=== PATIENT | male | born 1950 | race Caucasian/White ===

== ENCOUNTER 2020-06-09 09:06 | Outpatient (REF) | payer MEDICARE, SELFPAY ==
[2020-06-09 09:34] LABS: MANUAL DIFF FLAG NO
[2020-06-09 09:44] LABS: Basophils Absolute Auto 0.1 X10*3/uL (0.0-0.2); Basophils Percent Auto 0.9 % (0-2); Eosinophils Absolute Auto 0.2 X10*3/uL (0.0-0.4); Eosinophils Percent Auto 2.9 % (0-4); Hematocrit 42.3 % (42-52); Hemoglobin 14.7 g/dl (14.0-18.0); Imm Gran Abs Auto 0.05 X10*3/uL (0.00-0.03); Imm Gran Pct Auto 0.9 % (0.0-0.4); Lymphocytes Absolute Auto 2.1 X10*3/uL (1.2-4.9); Lymphocytes Percent Auto 36.8 % (20-40); Mean Corpuscular HGB Conc 34.8 g/dl (31.0-36.0); Mean Corpuscular Hemoglobin 31.5 pg (27.0-33.0); Mean Corpuscular Volume 90.8 fL (80-98); Mean Platelet Volume 9.9 fL (9.4-12.4); Monocytes Absolute Auto 0.4 X10*3/uL (0.1-1.2); Monocytes Percent Auto 6.9 % (2-11); Neutrophils Percent Auto 51.6 % (45-73); Platelet Count 249 X10*3/uL (160-400); Red Blood Count 4.66 X10*6/uL (4.60-5.80); Red Cell Distribution Width 12.8 % (11.0-16.0); White Blood Count 5.8 X10*3/uL (4.8-10.8)
[2020-06-09 09:56] LABS: Estimated Average Glucose 100 mg/dL; Hemoglobin A1c % 5.1 %
[2020-06-09 10:13] LABS: Alanine Aminotransferase 39 U/L (0-40); Albumin Level 4.2 g/dL (3.5-5.0); Alkaline Phosphatase 57 U/L (39-117); Anion Gap 11 (12-20); Aspartate Amino Transferase 25 U/L (5-37); Bilirubin Total 1.1 mg/dL (0.0-1.0); Blood Urea Nitrogen 24 mg/dL (9-16); Carbon Dioxide 29 mmol/L (22-29); Chloride 108 mmol/L (96-108); Cholesterol 172 mg/dL; Estimated Glomerular Filt Rate > 60; Glucose Random 113 mg/dL (60-115); HDL Cholesterol 58 mg/dL; LDL Cholesterol Calculated 95 mg/dl; Potassium 4.8 mmol/L (3.3-5.1); Sodium 143 mmol/L (135-145); Total Protein 6.4 g/dL (6.5-8.0); Triglycerides 98 mg/dL
[2020-06-09 10:22] LABS: Free T4 (Free Thyroxine) 0.84 ng/dL (0.71-1.85); Thyroid Stimulating Hormone 2.81 uIU/mL (0.32-4.0)
[2020-06-09 10:24] LABS: Uric Acid 5.9 mg/dL (3.4-7.0)
[2020-06-09 11:10] LABS: Folate 10.7 ng/mL (> or = 4.0); Vitamin B12 312 pg/mL (200-900)
[2020-06-10 04:28] LABS: SARS COV2 IgG Negative (Negative)
== END 2020-06-09 09:07 | disposition home or self-care (01) ==
LOC: HO.LAB 09:06
PROVIDERS: PCP Internal Medicine; Visit Provider Internal Medicine
DX: M51.36 Other intervertebral disc degeneration, lumbar region (principal); I10 Essential (primary) hypertension; M1A.9XX0 Chronic gout, unspecified, without tophus (tophi); E78.00 Pure hypercholesterolemia, unspecified; R73.02 Impaired glucose tolerance (oral)
CPT/HCPCS: 36415; 80053; 80061; 82607; 82746; 83036; 84439; 84443; 84550; 85025; 86769

== ENCOUNTER 2020-06-25 13:29 | Outpatient (REF) | payer MEDICARE, SELFPAY | END 2020-06-25 13:30 | disposition home or self-care (01) | LOC: HO.LAB 13:29 | PROVIDERS: Visit Provider Hospitalist | DX: Z13.89 Encounter for screening for other disorder (principal) ==

== ENCOUNTER 2020-06-25 18:21 | Outpatient (REF) | payer MEDICARE, SELFPAY | END 2020-06-25 18:22 | disposition home or self-care (01) | LOC: HO.LNP 18:21 | PROVIDERS: Visit Provider Hospitalist | DX: R51.9 Headache, unspecified (principal); R50.9 Fever, unspecified; Z20.822 Contact with and (suspected) exposure to COVID-19 | CPT/HCPCS: U0003; U0005 ==

== ENCOUNTER → 2020-10-10 10:12 | Outpatient (BNVA) | payer MEDICARE, SELFPAY | PROVIDERS: Visit Provider Orthopaedic Surgery | DX: M17.0 Bilateral primary osteoarthritis of knee (principal) | CPT/HCPCS: 20610; 99212; J1040 ==

== ENCOUNTER 2020-11-18 07:55 | Outpatient (REF) | payer MEDICARE, SELFPAY ==
[2020-11-18 08:23] LABS: MANUAL DIFF FLAG NO
[2020-11-18 08:31] LABS: Basophils Percent Auto 0.6 % (0-2); Eosinophils Absolute Auto 0.2 X10*3/uL (0.0-0.4); Eosinophils Percent Auto 3.1 % (0-4); Hematocrit 43.8 % (42-52); Hemoglobin 14.7 g/dl (14.0-18.0); Imm Gran Abs Auto 0.04 X10*3/uL (0.00-0.03); Imm Gran Pct Auto 0.6 % (0.0-0.4); Lymphocytes Absolute Auto 2.4 X10*3/uL (1.2-4.9); Lymphocytes Percent Auto 36.8 % (20-40); Mean Corpuscular HGB Conc 33.6 g/dl (31.0-36.0); Mean Corpuscular Hemoglobin 30.8 pg (27.0-33.0); Mean Corpuscular Volume 91.8 fL (80-98); Mean Platelet Volume 10.2 fL (9.4-12.4); Monocytes Absolute Auto 0.3 X10*3/uL (0.1-1.2); Monocytes Percent Auto 4.6 % (2-11); Neutrophils Absolute Auto 3.5 X10*3/uL (2.0-8.3); Neutrophils Percent Auto 54.3 % (45-73); Platelet Count 230 X10*3/uL (160-400); Red Blood Count 4.77 X10*6/uL (4.60-5.80); Red Cell Distribution Width 13.8 % (11.0-16.0); White Blood Count 6.5 X10*3/uL (4.8-10.8)
[2020-11-18 08:51] LABS: Alanine Aminotransferase 31 U/L (0-40); Albumin Level 4.5 g/dL (3.5-5.0); Alkaline Phosphatase 50 U/L (39-117); Anion Gap 11 (12-20); Aspartate Amino Transferase 26 U/L (5-37); Bilirubin Total 1.4 mg/dL (0.0-1.0); Blood Urea Nitrogen 20 mg/dL (9-16); Calcium 9.6 mg/dL (8.4-10.2); Carbon Dioxide 28 mmol/L (22-29); Chloride 110 mmol/L (96-108); Estimated Glomerular Filt Rate > 60; Glucose Random 88 mg/dL (60-115); Sodium 144 mmol/L (135-145); Total Protein 6.7 g/dL (6.5-8.0); Uric Acid 5.4 mg/dL (3.4-7.0)
[2020-11-18 09:12] LABS: Prostate Specific Antigen Scr 4.41 ng/mL (<0.05-4.0)
[2020-11-18 09:13] LABS: Estimated Average Glucose 97 mg/dL
== END 2020-11-18 07:56 | disposition home or self-care (01) ==
LOC: HO.LAB 07:55
PROVIDERS: PCP Internal Medicine; Visit Provider Internal Medicine
DX: Z12.5 Encounter for screening for malignant neoplasm of prostate (principal); R73.02 Impaired glucose tolerance (oral); M1A.9XX0 Chronic gout, unspecified, without tophus (tophi)
CPT/HCPCS: 36415; 80053; 83036; 84153; 84443; 84550; 85025

== ENCOUNTER 2020-12-24 13:33 | Outpatient (REF) | payer MEDICARE, SELFPAY ==
[2020-12-24 14:57] LABS: PSA,Total (Free>4and<10) 4.34 ng/mL (0.00-4.00)
[2020-12-25 11:52] LABS: Free Prostate Spec Ag 0.9 ng/mL; Percent Free Prostate Spec Ag 23 % (calc) (>25)
== END 2020-12-24 13:34 | disposition home or self-care (01) ==
LOC: HO.LAB 13:33
PROVIDERS: PCP Internal Medicine; Visit Provider Internal Medicine
DX: Z12.5 Encounter for screening for malignant neoplasm of prostate (principal); R97.20 Elevated prostate specific antigen [PSA]
CPT/HCPCS: 36415; 84153; 84154

== ENCOUNTER 2021-09-04 17:12 | Outpatient (REF) | payer MEDICARE, SELFPAY ==
[2021-09-04 17:38] LABS: Appearance Urine CLEAR; Color Urine YELLOW; Glucose Urine UA NEG (NEG); Leukocyte Esterase Urine NEG (NEG); Nitrite Urine NEG (NEG); UACC Culture Trigger NO; Urine Blood 3+ (NEG); Urine Ketones NEG (NEG); Urine Protein 2+ MG/DL (NEG-TRACE)
[2021-09-04 17:48] LABS: Bacteria Urine TRACE /LPF; WBC Urine 0 /HPF (0-4)
== END 2021-09-04 17:13 | disposition home or self-care (01) ==
LOC: HO.LAB 17:12
PROVIDERS: PCP Internal Medicine; Visit Provider Internal Medicine
DX: R30.0 Dysuria (principal)
CPT/HCPCS: 81001

== ENCOUNTER 2021-09-14 15:10 | Outpatient (REF) | payer MEDICARE, SELFPAY ==
--- NOTE | ~2021-09-14 | US_ITS ---
EXAMINATION: US RETROPERITONEAL LIMITED (RENAL ONLY) CLINICAL INFORMATION: Hematuria. COMPARISON: Abdominal ultrasound 04/27/2018 TECHNIQUE: Ultrasound of both kidneys was performed. FINDINGS: RIGHT KIDNEY: 10.9 x 6.8 x 6.0 cm (SAG x AP x TRV). The kidney is normal in size, contour, and echogenicity. Renal cortical thickness is normal. No calculi or focal parenchymal lesions. No hydronephrosis. Multiple renal cysts are present, both parapelvic as well as cortical with the largest measuring 5.1 x 3.9 x 4.1 cm. No solid renal masses are seen. There is a single punctate calcification measuring 3 mm without shadowing at the periphery of the largest cyst. LEFT KIDNEY: 11.4 x 7.1 x 6.6 cm (SAG x AP x TRV). The kidney is normal in size, contour, and echogenicity. Renal cortical thickness is normal. No calculi or focal parenchymal lesions. No hydronephrosis. Multiple predominately parapelvic cysts are present the largest measuring 4.2 x 2.6 x 2.7 cm. No solid renal masses are seen. US/US renal BI IMPRESSION: Bilateral renal cysts. No solid masses are seen. A small 3 mm nonobstructing calculus appears to be present on the right. No other cause for the patient's hematuria is not seen with certainty. CT urography would generally be the exam of choice for hematuria and may be helpful for further evaluation..
== END 2021-09-14 15:11 | disposition home or self-care (01) ==
LOC: HO.US 15:10
PROVIDERS: Visit Provider Internal Medicine
DX: R31.9 Hematuria, unspecified (principal)
CPT/HCPCS: 76775

== ENCOUNTER 2021-11-16 07:29 | Outpatient (REF) | payer MEDICARE, SELFPAY ==
[2021-11-16 07:47] LABS: MANUAL DIFF FLAG NO
[2021-11-16 08:00] LABS: Basophils Percent Auto 0.6 % (0-2); Eosinophils Absolute Auto 0.2 X10*3/uL (0.0-0.4); Eosinophils Percent Auto 2.5 % (0-4); Hematocrit 42.8 % (42.0-52.0); Hemoglobin 14.3 g/dl (14.0-18.0); Imm Gran Abs Auto 0.07 X10*3/uL (0.00-0.03); Lymphocytes Absolute Auto 2.2 X10*3/uL (1.2-4.9); Lymphocytes Percent Auto 32.2 % (20-40); Mean Corpuscular HGB Conc 33.4 g/dl (31.0-36.0); Mean Corpuscular Hemoglobin 31.6 pg (27.0-33.0); Mean Corpuscular Volume 94.5 fL (80.0-98.0); Mean Platelet Volume 9.7 fL (9.4-12.4); Monocytes Absolute Auto 0.4 X10*3/uL (0.1-1.2); Monocytes Percent Auto 5.7 % (2-11); Platelet Count 221 X10*3/uL (160-400); Red Blood Count 4.53 X10*6/uL (4.60-5.80); Red Cell Distribution Width 13.8 % (11.0-16.0); White Blood Count 6.9 X10*3/uL (4.8-10.8)
[2021-11-16 08:08] LABS: Estimated Average Glucose 91 mg/dL; Hemoglobin A1c % 4.8 %
[2021-11-16 08:30] LABS: Alanine Aminotransferase 18 U/L (0-40); Albumin Level 4.4 g/dL (3.5-5.0); Alkaline Phosphatase 47 U/L (39-117); Anion Gap 14 (12-20); Aspartate Amino Transferase 14 U/L (5-37); Bilirubin Total 1.5 mg/dL (0.0-1.0); Blood Urea Nitrogen 23 mg/dL (9-16); Calcium 9.3 mg/dL (8.4-10.2); Carbon Dioxide 27 mmol/L (22-29); Chloride 108 mmol/L (96-108); Cholesterol 190 mg/dL; Estimated Glomerular Filt Rate > 60; Glucose Random 94 mg/dL (60-115); HDL Cholesterol 70 mg/dL; LDL Cholesterol Calculated 98 mg/dl; Potassium 5.2 mmol/L (3.3-5.1); Sodium 144 mmol/L (135-145); Total Protein 6.6 g/dL (6.5-8.0); Triglycerides 110 mg/dL; Uric Acid 4.7 mg/dL (3.4-7.0)
[2021-11-16 08:54] LABS: Free T4 (Free Thyroxine) 0.91 ng/dL (0.71-1.85); PSA,Total (Free>4and<10) 2.29 ng/mL (0.00-4.00)
[2021-11-16 09:04] LABS: Folate 9.1 ng/mL (> or = 4.0); Vitamin B12 747 pg/mL (200-900)
[2021-11-16 09:12] LABS: Appearance Urine HAZY; Color Urine STRAW; Glucose Urine UA NEG (NEG); Leukocyte Esterase Urine NEG (NEG); Nitrite Urine POS (NEG); PH 5.5 (5.0-8.0); UACC Culture Trigger YES; Urine Blood NEG (NEG); Urine Ketones NEG (NEG); Urine Protein NEG (NEG-TRACE)
[2021-11-16 09:41] LABS: Bacteria Urine 3+ /LPF; RBC Urine 0 /HPF (0)
== END 2021-11-16 07:30 | disposition home or self-care (01) ==
LOC: HO.LAB 07:29
PROVIDERS: PCP Internal Medicine; Visit Provider Internal Medicine
DX: J43.1 Panlobular emphysema (principal); R30.0 Dysuria; I10 Essential (primary) hypertension; M1A.9XX0 Chronic gout, unspecified, without tophus (tophi); N40.1 Benign prostatic hyperplasia with lower urinary tract symptoms; R35.0 Frequency of micturition; E78.00 Pure hypercholesterolemia, unspecified; R73.02 Impaired glucose tolerance (oral); Z12.5 Encounter for screening for malignant neoplasm of prostate
CPT/HCPCS: 36415; 80053; 80061; 81001; 81003; 82607; 82746; 83036; 84153; 84439; 84443; 84550; 85025; 87086; 87088; 87186

== ENCOUNTER 2022-01-05 12:09 | Outpatient (REF) | payer MEDICARE, SELFPAY ==
--- NOTE | ~2022-01-05 | XR_ITS ---
EXAMINATION: LUMBAR SPINE AND SACRUM/COCCYX. CLINICAL INFORMATION: Back pain COMPARISON: None TECHNIQUE: Lumbar spine 3 views. Sacrum and coccyx 3 views. FINDINGS: Lumbar spine: There is normal lumbar lordosis. The vertebral heights, alignment and disc heights are normal. There is moderate ventral spondylosis. No visible acute fracture, dislocation or lytic process seen. There is bilateral L4-L5 and L5-S1 facet joint arthropathy. The paravertebral soft tissues are normal. XR/XR sacrum coccyx min 2V IMPRESSION: Moderate ventral spondylosis. No visible acute fracture, dislocation or subluxation seen. There is bilateral L5-S1, L4-L5 facet joint arthropathy.
--- NOTE | ~2022-01-05 | XR_ITS ---
EXAMINATION: LUMBAR SPINE AND SACRUM/COCCYX. CLINICAL INFORMATION: Back pain COMPARISON: None TECHNIQUE: Lumbar spine 3 views. Sacrum and coccyx 3 views. FINDINGS: Lumbar spine: There is normal lumbar lordosis. The vertebral heights, alignment and disc heights are normal. There is moderate ventral spondylosis. No visible acute fracture, dislocation or lytic process seen. There is bilateral L4-L5 and L5-S1 facet joint arthropathy. The paravertebral soft tissues are normal. XR/XR lumbar spine 2-3V IMPRESSION: Moderate ventral spondylosis. No visible acute fracture, dislocation or subluxation seen. There is bilateral L5-S1, L4-L5 facet joint arthropathy.
== END 2022-01-05 12:10 | disposition home or self-care (01) ==
LOC: HO.XRAY 12:09
PROVIDERS: PCP Internal Medicine; Visit Provider Internal Medicine
DX: M51.36 Other intervertebral disc degeneration, lumbar region (principal)
CPT/HCPCS: 72100; 72220

== ENCOUNTER 2022-07-30 06:52 | Outpatient (REF) | payer MEDICARE, SELFPAY ==
[2022-07-30 08:35] LABS: Estimated Average Glucose 97 mg/dL
[2022-07-30 09:22] LABS: Thyroid Stimulating Hormone 3.83 uIU/mL (0.32-4.0)
[2022-07-30 10:11] LABS: Uric Acid 4.9 mg/dL (3.4-7.0)
== END 2022-07-30 06:53 | disposition home or self-care (01) ==
LOC: HO.LAB 06:52
PROVIDERS: PCP Internal Medicine; Visit Provider Internal Medicine
DX: M1A.9XX0 Chronic gout, unspecified, without tophus (tophi) (principal); I10 Essential (primary) hypertension; R73.02 Impaired glucose tolerance (oral)
CPT/HCPCS: 36415; 83036; 84443; 84550

== ENCOUNTER → 2022-09-28 10:46 | Outpatient (BNVA) | payer MEDICARE, SELFPAY | PROVIDERS: Visit Provider Physician Assistant | DX: Z01.818 Encounter for other preprocedural examination (principal); J43.1 Panlobular emphysema | CPT/HCPCS: 99202 ==

== ENCOUNTER → 2022-10-07 12:52 | Outpatient (REF) | payer MEDICARE, SELFPAY | LOC: HO.SL 12:52 | PROVIDERS: PCP Nurse Practitioner Family; Visit Provider Internal Medicine | DX: G47.10 Hypersomnia, unspecified (principal) | CPT/HCPCS: 95806 ==

== ENCOUNTER → 2022-10-07 13:14 | Outpatient (BNV) | payer MEDICARE, SELFPAY | PROVIDERS: PCP Nurse Practitioner Family; Visit Provider Internal Medicine | DX: G47.33 Obstructive sleep apnea (adult) (pediatric) (principal) | CPT/HCPCS: 95806 ==

== ENCOUNTER 2022-12-07 13:16 | Outpatient (AMB) | payer MEDICARE, SELFPAY ==
[2022-12-07 13:20] VITALS: BP 132/76; PULSE 56; O2SAT 92; BMI 36.1
--- NOTE | 2022-12-07 13:20 | A.OFFPC_ITS ---
Vital Signs 12/07/22 13:20 12/07/22 13:45 Height 5 ft 11 in Weight 259 lb BMI 36.1 BP 132/76 140/70 H Blood Pressure Location Lt brachial Lt brachial Position Sitting Sitting Pulse 56 Pulse Source Pulse Oximeter Pulse Oximetry (%) 92 Oxygen Delivery Method Room Air Intake Visit Reasons: Follow up Allergies bacitracin Allergy (Intermediate, Verified 12/07/22 13:20) rash amlodipine Adverse Reaction (Intermediate, Uncoded 12/07/22 13:47) leg swelling Medication List - Last Reconciled 12/07/22 by Zaid Barrett MD albuterol sulfate 90 mcg/actuation (ProAir HFA) 2 puffs inhalation Q4-6H PRN albuterol sulfate 2.5 mg (3 mL) inhalation Q4-6H PRN 30 days allopurinol 300 mg PO DAILY benazepril 40 mg PO DAILY bisacodyl (Dulcolax (bisacodyl)) 20 mg (4 x 5 mg) PO ONCE 1 day cholecalciferol (vitamin D3) 50 mcg PO DAILY finasteride 5 mg PO DAILY metoprolol succinate ER 25 mg PO DAILY polyethylene glycol 3350 (Miralax) 238 grams PO ONCE 1 day tamsulosin 0.4 mg PO DAILY tramadol 50 mg PO TID PRN Tobacco use date assessed: 05/25/22 Fall risk assessment: No Falls in past year Last assessed Fall Risk: 12/07/22 Dental Screening Dental Screen Date: 12/07/22 Did you have a dental visit in the last 12 months?: Yes Did you have a dental problem in the last 6 months where you did not have access to dental care?: No Was dental information given to patient?: Patient has dentist HPI Follow up HPI Details 72-year-old obese male with impaired glucose tolerance gout COPD hypertension BPH lumbar degenerative disc disease with bilateral knee osteoarthritis coming in for follow-up. Last seen in November 2021. Colonoscopy is due this year review of the notes. Patient has sleep study in October 2022 showing moderately severe sleep apnea patient has been advised in lab sleep study. Patient has also met with the tree specialist in September 2022 and planned colonoscopy. Patient has also seen the nurse practitioner for annual well visit. Patient also follows up with urology April 2022 elevated PSA and BPH. 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 Low back pain problem having moderate ventral spondylosis having L5-S1 L4-L5 joint are 3. BP high here- was taken off amlodipine 10 mg . BP high at home. would like to add med for BP PFSH Medical History (Updated 12/07/22 @ 13:38 by Zaid Barrett MD) BPH (benign prostatic hyperplasia) Carpal tunnel syndrome Cerumen impaction Cervical radiculopathy COPD (chronic obstructive pulmonary disease) COVID-19 virus infection COVID-19 virus infection Fatty liver Fever and chills Gout Hypersomnia Hypertension Impacted cerumen of left ear Impaired glucose tolerance Lumbar degenerative disc disease Obesity (BMI 30-39.9) Osteoarthritis Otitis media Peripheral vascular disease Preoperative clearance Thrombophlebitis leg superficial Vitamin D deficiency Surgical History History of carpal tunnel release History of colonoscopy History of elbow surgery History of removal of cyst History of right knee surgery History of varicose vein stripping Family History (Updated 12/07/22 @ 13:21 by Alexandra Irene CMA) Father Lung cancer Brain cancer Mother No problems noted. Paternal Uncle Brain cancer Lung cancer Social History Housing: House Alcohol intake: current Alcohol intake frequency: a few times a week Alcohol type: beer Patient Tobacco Use Status: Former Tobacco user Tobacco use type: Cigarette e-Cigarette/Vaping Use: Never Used Second Hand Smoke Exposure: No service: No Current occupational status: retired Cognitive needs: No Hearing needs: No Vision needs: No Questionnaire PHQ-9 Over the last 2 weeks, how often have you been bothered by any of the following problems? 1. Little interest or pleasure in doing things: not at all 2. Feeling down, depressed, or hopeless: not at all 3. Trouble falling or staying asleep, or sleeping too much: not at all 4. Feeling tired or having little energy: several days 5. Poor appetite or overeating: not at all 6. Feeling bad about yourself - or that you are a failure or have let yourself or your family down: not at all 7. Trouble concentrating on things, such as reading the newspaper or watching television: not at all 8. Moving or speaking so slowly that other people could have noticed. Or the opp osite - being so fidgety or restless that you have been moving around a lot more than usual: not at all 9. Thoughts that you would be better off or of hurting yourself in some way: not at all Total score: 1 Depression Screening Interpretation: Negative [id number] - PHQ-9 Billing: Yes Source: Developed by Drs. Abiel Perez, Ceci Foss, Leonel Ram and colleagues, with an educational niurka from [employer]. Thrive Questionnaire Date Thrive assessed: 05/25/22 AUDIT C Alcohol Use Questionnaire (AUDIT-C) 1. How often do you have a drink containing alcohol?: 2-3 times a week 2. How many drinks containing alcohol do you have on a typical day when you are drinking?: 1 or 2 3. How often do you have six or more drinks on one occasion?: Never Total Score: 3 Score Reviewed/Action Taken: No ZACHARY-7 AMB Questionnaire ZACHARY-7 Date ZACHARY - 7 assessed: 05/25/22 Source: Developed by Drs. Abiel Perez, Ceci Foss, Leonel Ram and colleagues, with an educational niurka from [employer]. Physical exam (Primary Care) Vital Signs: Last Vital Signs Pulse 56 12/07/22 13:20 BP 132/76 12/07/22 13:20 Pulse Ox 92 12/07/22 13:20 Oxygen Delivery Method Room Air 12/07/22 13:20 BMI result Body Mass Index 36.1 Tobacco/Smoking Status: Tobacco use Status Tobacco use date assessed 05/25/22 12/07/22 13:26 Patient Tobacco Use Status Former Tobacco user 12/07/22 13:26 Tobacco use type Cigarette 12/07/22 13:26 e-Cigarette/Vaping Use Never Used 12/07/22 13:26 PHQ-9: PHQ-9 Score PHQ-9: Total score 1 12/07/22 13:26 Depression Screening Interpretation: Negative Thrive Assessment: Date of Thrive Assessment Date Thrive assessed 05/25/22 12/07/22 13:26 Const General: alert; No acute distress Eyes Conjunctivae: conjunctivae normal Resp Auscultation: clear to auscultation bilaterally Cardio Rate: regular rate Rhythm: regular rhythm GI Inspection: Yes normal to inspection Extrem General: Yes normal to inspection and No edema Assessment and Plan Assessment & Plan (1) Severe obstructive sleep apnea: Code(s): G47.33 - Obstructive sleep apnea (adult) (pediatric) Plan: Patient was advised to get an in-lab sleep study for this severe obstructive sleep apnea. Awaiting for schedule (2) Screening for colon cancer: Code(s): Z12.11 - Encounter for screening for malignant neoplasm of colon Plan: Awaiting Gastroenterology schedule (3) Lumbar spinal stenosis: Comment: Dr. Borjas August 2020 L3 for laminotomy, decompression facetomy partial L3-L4 Code(s): M48.061 - Spinal stenosis, lumbar region without neurogenic claudication Plan: Patient is on tramadol (4) BPH (benign prostatic hyperplasia): Code(s): N40.0 - Benign prostatic hyperplasia without lower urinary tract symptoms Qualifiers: Lower urinary tract symptom presence: symptoms present Lower urinary tract symptom detail: urinary frequency Qualified Code(s): N40.1 - Benign prostatic hyperplasia with lower urinary tract symptoms; R35.0 - Frequency of micturition Plan: Continue to follow-up with Urology (5) Hypertension: Code(s): I10 - Essential (primary) hypertension Qualifiers: Hypertension type: essential hypertension Qualified Code(s): I10 - Essential (primary) hypertension Plan: Continue with blood pressure medication. Decrease salt intake and exercise patient on metoprolol 25 mg once a day (6) Obesity (BMI 30-39.9): Code(s): E66.9 - Obesity, unspecified Plan: Diet and exercise (7) COPD (chronic obstructive pulmonary disease): Code(s): J44.9 - Chronic obstructive pulmonary disease, unspecified Qualifiers: COPD type: emphysema Emphysema type: panlobular Qualified Code(s): J43.1 - Panlobular emphysema Plan: Continue with inhaler as needed (8) Impaired glucose tolerance: Code(s): R73.02 - Impaired glucose tolerance (oral) Plan: Decrease the amount of carbohydrate intake, pasta, bread, rice and potatoes are all sugar and that is aside from all the sweet stuff, remember that fruits are good but they are Sweet also. (9) Gout: Comment: Tophi right finger 2005 Code(s): M10.9 - Gout, unspecified Qualifiers: Gout site: unspecified site Gout etiology: unspecified cause Chronicity: chronic Presence of tophus: without tophus Qualified Code(s): M1A.9XX0 - Chronic gout, unspecified, without tophus (tophi) Plan: Increase oral fluids low purine diet Orders: Orders Vitamin B12 and Folate Today I10 - Essential (primary) hypertension Comprehensive Met. Panel Today I10 - Essential (primary) hypertension Lipid Panel Today E78.00 - Pure hypercholesterolemia, unspecified, I10 - Essential (primary) hypertension Free T4 (Free Thyroxine) Today I10 - Essential (primary) hypertension Thyroid Stimulating Hormone Today I10 - Essential (primary) hypertension Complete Blood Count Auto Diff Today I10 - Essential (primary) hypertension Medications: New hydrochlorothiazide 12.5 mg PO DAILY 90 tabs 2RF I10 - Essential (primary) hypertension Coding Level of Care Code Est Pt Level 4 (66367) Diagnoses Severe obstructive sleep apnea G47.33 Screening for colon cancer Z12.11 Lumbar spinal stenosis M48.061 BPH (benign prostatic hyperplasia) N40.1; R35.0 Lower urinary tract symptom presence: symptoms present Lower urinary tract symptom detail: urinary frequency Hypertension I10 Hypertension type: essential hypertension Obesity (BMI 30-39.9) E66.9 COPD (chronic obstructive pulmonary disease) J43.1 COPD type: emphysema Emphysema type: panlobular Impaired glucose tolerance R73.02 Gout M1A.9XX0 Gout site: unspecified site Gout etiology: unspecified cause Chronicity: chronic Presence of tophus: without tophus
[2022-12-07 13:45] VITALS: BP 140/70
== END 2022-12-07 13:56 | disposition home or self-care (01) ==
PROVIDERS: PCP Nurse Practitioner Family; Visit Provider Internal Medicine
DX: I10 Essential (primary) hypertension (principal); J43.1 Panlobular emphysema; G47.33 Obstructive sleep apnea (adult) (pediatric); M48.061 Spinal stenosis, lumbar region without neurogenic claudication; N40.1 Benign prostatic hyperplasia with lower urinary tract symptoms; R35.0 Frequency of micturition; E66.9 Obesity, unspecified; R73.02 Impaired glucose tolerance (oral); M1A.9XX0 Chronic gout, unspecified, without tophus (tophi)
CPT/HCPCS: 99214

== ENCOUNTER 2023-01-19 09:37 | Day surgery (SDC) | payer MEDICARE, SELFPAY ==
--- NOTE | 2023-01-18 09:09 | HO.ANESPROP2 ---
Documented by User: Edna Gerardo NP 01/18/23 09:11 HPI - Anesthesia Eval Consult details Narrative: 72yo M for Colonoscopy PMFSH Active Problems Active Problems: All Active Problems (Updated 12/07/22 @ 13:38 by Zaid Barrett MD) Severe obstructive sleep apnea (Acute) Screening for colon cancer (Acute) Right renal stone (Acute) Hematuria (Acute) Adult general medical exam (Acute) Trigger finger (Acute) PSA elevation (Acute) Erectile dysfunction (Acute) Injury of tympanic membrane of left ear (Acute) Primary osteoarthritis of knees, bilateral (Acute) Hand pain, right (Acute) Knee pain, bilateral (Acute) Lumbar spinal stenosis (Acute) Lumbar degenerative disc disease (Acute) BPH (benign prostatic hyperplasia) (Acute) Hypertension (Acute) Obesity (BMI 30-39.9) (Acute) COPD (chronic obstructive pulmonary disease) (Acute) Gout (Acute) Impaired glucose tolerance (Acute) Past Medical History Medical History Hypersomnia COVID-19 virus infection Otitis media Impacted cerumen of left ear Cerumen impaction Preoperative clearance COVID-19 virus infection Fever and chills Cervical radiculopathy Thrombophlebitis leg superficial Lumbar degenerative disc disease Fatty liver Osteoarthritis Carpal tunnel syndrome BPH (benign prostatic hyperplasia) Vitamin D deficiency Hypertension Obesity (BMI 30-39.9) COPD (chronic obstructive pulmonary disease) Gout Impaired glucose tolerance Peripheral vascular disease Family History Family History Father Lung cancer Brain cancer Mother No problems noted. Paternal Uncle Brain cancer Lung cancer Surgical History Surgical History History of back surgery History of back surgery History of colonoscopy History of varicose vein stripping History of right knee surgery History of elbow surgery History of removal of cyst History of carpal tunnel release Social History Social History Housing: House Alcohol intake: current Alcohol intake frequency: 0-2 drinks per day Alcohol type: beer Patient Tobacco Use Status: Former Tobacco user Tobacco use type: Cigarette e-Cigarette/Vaping Use: Never Used Second Hand Smoke Exposure: No Are you DNR?: No Advance Directives: No Advance Directives Information Provided: Yes Recently lost weight without trying: No Nutrition Risks: No Nutritional Risk service: No Current occupational status: retired Cognitive needs: No Hearing needs: No Vision needs: No Meds Allergies Allergy/AdvReac Type Severity Reaction Status Date / Time bacitracin Allergy Intermediate rash Verified 12/07/22 13:20 amlodipine AdvReac Intermediate leg Uncoded 12/07/22 13:47 swelling Home Medications Medication Instructions Recorded Confirmed Last Taken Type albuterol sulfate 90 mcg/actuation 2 puff inhalation Q4-6H PRN 06/03/20 12/07/22 Unknown History aerosol inhaler (ProAir HFA) cholecalciferol (vitamin D3) 50 50 mcg PO DAILY 06/04/21 12/07/22 Unknown History mcg (2,000 unit) capsule finasteride 5 mg tablet 5 mg PO DAILY 09/28/22 12/07/22 Unknown History Exam Exam Date and Time: January 18, 2023908 Assessment and Plan Assessment Anesthesia Assessment: Chart Reviewed Documented by User: Philomena Linn MD 01/19/23 12:11 PMFSH Past Medical History Medical History Hypersomnia COVID-19 virus infection Otitis media Impacted cerumen of left ear Cerumen impaction Preoperative clearance COVID-19 virus infection Fever and chills Cervical radiculopathy Thrombophlebitis leg superficial Lumbar degenerative disc disease Fatty liver Osteoarthritis Carpal tunnel syndrome BPH (benign prostatic hyperplasia) Vitamin D deficiency Hypertension Obesity (BMI 30-39.9) COPD (chronic obstructive pulmonary disease) Gout Impaired glucose tolerance Peripheral vascular disease Family History Family History Father Lung cancer Brain cancer Mother No problems noted. Paternal Uncle Brain cancer Lung cancer Family history of problems with anesthesia: No Surgical History Surgical History History of back surgery History of back surgery History of colonoscopy History of varicose vein stripping History of right knee surgery History of elbow surgery History of removal of cyst History of carpal tunnel release History of Problems with Anesthesia: No Social History Social History Housing: House Alcohol intake: current Alcohol intake frequency: 0-2 drinks per day Alcohol type: beer Patient Tobacco Use Status: Former Tobacco user Tobacco use type: Cigarette e-Cigarette/Vaping Use: Never Used Second Hand Smoke Exposure: No Are you DNR?: No Advance Directives: No Advance Directives Information Provided: Yes Recently lost weight without trying: No Nutrition Risks: No Nutritional Risk service: No Current occupational status: retired Cognitive needs: No Hearing needs: No Vision needs: No Meds Allergies Allergy/AdvReac Type Severity Reaction Status Date / Time bacitracin Allergy Intermediate rash Verified 12/07/22 13:20 amlodipine AdvReac Intermediate leg Uncoded 12/07/22 13:47 swelling Home Medications Medication Instructions Recorded Confirmed Last Taken Type albuterol sulfate 90 mcg/actuation 2 puff inhalation Q4-6H PRN 06/03/20 12/07/22 Unknown History aerosol inhaler (ProAir HFA) cholecalciferol (vitamin D3) 50 50 mcg PO DAILY 06/04/21 12/07/22 Unknown History mcg (2,000 unit) capsule finasteride 5 mg tablet 5 mg PO DAILY 09/28/22 12/07/22 Unknown History Exam Airway Mallampati Class: II TM Dist: >3cm Neck ROM: Full Heart: rrr Lungs: cta Assessment and Plan Assessment Anesthesia Assessment: Anesthesia Plan Discussed Final Anesthetic Review Family History of Problems with Anesthesia: No History of Problems with Anesthesia: No NPO: Yes ASA Class: III Final Preanesthetic Review: No Changes in Pt Med Stat, Meds/Allgs Chart Reviewed, Consent Obtained/Reviewed and Anes Risks/Benef Reviewed Patient Risk: Intermediate Procedure Risk: Low Anesthetic Plan Anesthetic Plan: MAC: Disposition: Standard PACU
[2023-01-19 10:15] VITALS: BMI 36.1
[2023-01-19 10:45] VITALS: BP 168/84; PULSE 85; RESP 20; TEMP 36.6; O2SAT 97
[2023-01-19] MEDS: Lactated Ringers 1,000 ML 100 ML IVCONT (11:14)
--- NOTE | 2023-01-19 11:19 | MHC.SHP ---
Pre-Procedural Eval Section A Date of Service: 01/19/23 Section B Chief Complaint: Encounter for screening for malignant neoplasm Relevant Family History (Specify if Yes): No Relevant Social History: None Present Medications: see Short Stay Collaborative assessment Medical History: Significant History (Hypersomnia COVID-19 virus infection Otitis media Impacted cerumen of left ear Cerumen impaction Preoperative clearance COVID-19 virus infection Fever and chills Cervical radiculopathy Thrombophlebitis leg superficial Lumbar degenerative disc disease Fatty liver Osteoarthritis Carpal tunnel syndrome) History of Previous Operations: Relevant previous surgery/procedure and date(s) (History of colonoscopy History of varicose vein stripping History of right knee surgery History of elbow surgery History of removal of cyst History of carpal tunnel release) Allergies: Allergies Allergy/AdvReac Type Severity Reaction Status Date / Time bacitracin Allergy Intermediate rash Verified 12/07/22 13:20 amlodipine AdvReac Intermediate leg Uncoded 12/07/22 13:47 swelling Review of Systems Sugical H&P ROS: Negative: Constitution, Cardiovascular, Respiratory, Neurological, Psychiatric, Hem-Onc, Allergic/Immunologic, Gastrointestinal, Genitourinary, Musculoskeletal, Integumentary, Endocrine and Eyes/Ears/Nose/Throat Exam Surgical H&P Exam: Normal: HEENT, Normal: Heart, Normal: Lungs, Normal: Extremities, Normal: Abdomen, Normal: Skin and Normal: Neurological Plan Diagnosis/Plan: Unchanged I have reviewed the history and physical and performed a pertinent physical examination on my patient. No changes have occurred unless specified. Time Spent With Patient Time: Total time managing care of this patient today ____ minutes.
--- NOTE | 2023-01-19 12:38 | P.OP_ITS ---
Operative Note Operative Note Date of Service: 01/19/23 Narrative: Operative Information Procedure Description: Colonoscopy Indication: screening Anesthesia: MAC COLONOSCOPY Instrument: Olympus variable stiffness ADULT scope 190L Colonoscopy Monitoring: Vital signs and clinical assessment, continuous EKG monitoring, Pulse oximetry, Carbon Dioxide monitoring and blood pressure monitoring were done throughout the procedure. Colon withdrawal time was 11 minutes. Procedure: The patient was placed in the left lateral decubitis position and pre-procedure medications were administered. After a digital rectal examination of the ano-rectum, the video colonoscope was inserted into the rectum and advanced through the colon to the cecum/TI. The colonoscope was slowly withdrawn in a retrograde panoramic fashion and the colon mucosa was carefully examined including a retroflexed view of the rectum. Findings and interventions are described below. Procedure Difficulty: moderate Findings: Terminal Ileum-not intubated Cecum:normal Ascending Colon: 5-7 mm sessile polyp removed with cold snare, not retrieved , scattered tics noted Transverse Colon -normal Descending Colon:normal Sigmoid Colon: moderate severe diverticulosis Rectum: Retroflexion with small internal hemorrhoids, grade I Anorectum - normal Colon preparation: [place] Bowel Preparation Scale Right colon; Transverse colon: 2 Left colon; 2 (0 = Unprepared colon segment with mucosa not seen due to solid stool that cannot be cleared. 1 = Portion of mucosa of the colon segment seen, but other areas of the colon segment not well seen due to staining, residual stool and/or opaque liquid. 2 = Minor amount of residual staining, small fragments of stool and/or opaque liquid, but mucosa of colon segment seen well. 3 = Entire mucosa of colon segment seen well with no residual staining, small fragments of stool or opaque liquid) Impression and Post Procedure Diagnosis: polyp internal hemorrhoids diverticular disease Plan: High fiber diet leaflet Avoid straining at stool, epsom salts and sitz bath, anusol supps or cream Repeat Colonoscopy in 5-7 years due to adenomatous polyp by Kudo pit markings or earlier if clinically indicated Above findings were reviewed with the patient and relevant handouts were provided if indicated.
[2023-01-19 12:48] VITALS: BP 149/80; PULSE 72; RESP 12; TEMP 36.7; O2SAT 98
[2023-01-19 13:07] VITALS: BP 165/92; PULSE 74; RESP 18; TEMP 36.2; O2SAT 97
--- NOTE | 2023-01-19 13:07 | HO.POSTANES ---
Post Anesthesia Evaluation Post Anesthesia Evaluation Date of Service: 01/19/23 Vital Signs: Vital Signs Temp Pulse Resp BP Pulse Ox O2 Del Method O2 Flow Rate 01/19/23 12:48 98.0 F 72 12 149/80 H 98 Nasal Cannula 2 01/19/23 10:45 97.9 F 85 20 168/84 H 97 Room Air Anesthesia: Monitored Mental Status: Awake Pain Control: Satisfactory Nausea/Vomiting: None Hydration: Adequate Anesthesia-Related Issues: No Anes. Related Issues
== END 2023-01-19 13:46 | disposition home or self-care (01) ==
PROVIDERS: PCP Internal Medicine; Visit Provider Internal Medicine Gastroenterology
PROC: 0DJD8ZZ Inspection of Lower Intestinal Tract, Via Natural or Artificial Opening Endoscopic (ICD-10-PCS; CPT 45378; principal; 2023-01-19 12:00)
DX: Z12.11 Encounter for screening for malignant neoplasm of colon (principal); K63.5 Polyp of colon; K57.30 Diverticulosis of large intestine without perforation or abscess without bleeding; K64.0 First degree hemorrhoids; R60.0 Localized edema; J43.1 Panlobular emphysema; I10 Essential (primary) hypertension; K76.0 Fatty (change of) liver, not elsewhere classified; N40.0 Benign prostatic hyperplasia without lower urinary tract symptoms; Z79.899 Other long term (current) drug therapy; Z87.891 Personal history of nicotine dependence
CPT/HCPCS: 45385; J2250

== ENCOUNTER → 2023-01-19 09:37 | Outpatient (BNV) | payer MEDICARE, SELFPAY | PROVIDERS: PCP Internal Medicine; Visit Provider Internal Medicine Gastroenterology | DX: Z12.11 Encounter for screening for malignant neoplasm of colon (principal); D12.2 Benign neoplasm of ascending colon; K57.90 Diverticulosis of intestine, part unspecified, without perforation or abscess without bleeding; K64.0 First degree hemorrhoids | CPT/HCPCS: 45385 ==

== ENCOUNTER → 2023-01-26 20:30 | Outpatient (REF) | payer MEDICARE, SELFPAY | LOC: HO.SL 20:30 | PROVIDERS: PCP Internal Medicine; Visit Provider Internal Medicine | DX: G47.33 Obstructive sleep apnea (adult) (pediatric) (principal) | CPT/HCPCS: 95811 ==

== ENCOUNTER → 2023-01-26 21:59 | Outpatient (BNV) | payer MEDICARE, SELFPAY | PROVIDERS: PCP Internal Medicine; Visit Provider Internal Medicine | DX: G47.33 Obstructive sleep apnea (adult) (pediatric) (principal) | CPT/HCPCS: 95811 ==

== ENCOUNTER 2023-02-01 10:34 | Outpatient (AMB) | payer MEDICARE, SELFPAY ==
--- NOTE | 2023-02-01 10:35 | A.OFFVIS_ITS ---
Intake Vital Signs 02/01/23 10:40 Height 5 ft 11 in BP 140/78 H Blood Pressure Location Lt brachial Position Sitting Pulse 57 Intake Visit Reasons: S/p colon Guillen Intake Note: Patient follow up for Colonoscopy results Patient denies any GI issues. Sampler Radioactive Waste Required: No Accompanied by: Self / Same As Patient Allergies bacitracin Allergy (Intermediate, Verified 02/01/23 10:36) rash amlodipine Adverse Reaction (Intermediate, Uncoded 12/07/22 13:47) leg swelling Medication List - Last Reconciled 02/01/23 by Marcia Lerner PA-C albuterol sulfate 90 mcg/actuation (ProAir HFA) 2 puffs inhalation Q4-6H PRN albuterol sulfate 2.5 mg (3 mL) inhalation Q4-6H PRN 30 days allopurinol 300 mg PO DAILY benazepril 40 mg PO DAILY cholecalciferol (vitamin D3) 50 mcg PO DAILY finasteride 5 mg PO DAILY hydrochlorothiazide 25 mg PO DAILY metoprolol succinate ER 25 mg PO DAILY tamsulosin 0.4 mg PO DAILY tramadol 50 mg PO TID PRN HPI HPI Comments History of Present Illness Details A 72-year-old Gent personal history of colon polyps follows up after recent colonoscopy with polypectomy. He does say he has hemorrhoid that is been a bit irritated he does have occasional constipation-he has made dietary modifications to increase fiber to his diet however not always successful Patient tolerated procedure well Reviewed procedure report, pathology as well as recommendations No nausea, vomiting, abdominal pain, hematemesis, hematochezia fever chills PFSH Medical History (Updated 02/01/23 @ 11:01 by Marcia Lerner PA-C) Hypersomnia COVID-19 virus infection Otitis media Impacted cerumen of left ear Cerumen impaction Preoperative clearance COVID-19 virus infection Fever and chills Cervical radiculopathy Thrombophlebitis leg superficial Lumbar degenerative disc disease Fatty liver Osteoarthritis Carpal tunnel syndrome BPH (benign prostatic hyperplasia) Vitamin D deficiency Hypertension Obesity (BMI 30-39.9) COPD (chronic obstructive pulmonary disease) Gout Impaired glucose tolerance Peripheral vascular disease Surgical History History of back surgery History of back surgery History of colonoscopy History of varicose vein stripping History of right knee surgery History of elbow surgery History of removal of cyst History of carpal tunnel release Family History Father Lung cancer Brain cancer Mother No problems noted. Paternal Uncle Brain cancer Lung cancer Social History Housing: House Alcohol intake: current Alcohol intake frequency: 0-2 drinks per day Alcohol t ype: beer Patient Tobacco Use Status: Former Tobacco user Tobacco use type: Cigarette e-Cigarette/Vaping Use: Never Used Second Hand Smoke Exposure: No service: No Current occupational status: retired Cognitive needs: No Hearing needs: No Vision needs: No Physical Exam Vital Signs: Last Vital Signs Pulse 57 02/01/23 10:40 BP 140/78 H 02/01/23 10:40 Results Reviewed Results Reviewed: Impression and Post Procedure Diagnosis: polyp internal hemorrhoids diverticular disease Plan: High fiber diet leaflet Avoid straining at stool, epsom salts and sitz bath, anusol supps or cream Repeat Colonoscopy in 5-7 years due to adenomatous polyp by Kudo pit markings or earlier if clinically indicated Assessment & Plan Assessment & Plan (1) History of colon polyps: Comment: hx adenoma- polyp not retrieved Code(s): Z86.010 - Personal history of colonic polyps (2) Diverticulosis of colon: Comment: Sigmoid Colon: moderate severe diverticulosis Code(s): K57.30 - Diverticulosis of large intestine without perforation or abscess without bleeding Plan: Maintain high-fiber diet ER protocol review (3) Hemorrhoids: Code(s): K64.9 - Unspecified hemorrhoids Plan: Consistent bowel regimen Maintain high-fiber diet-fiber supplement Avoid straining Rectal cream Declined surgical consult Medications: New calcium polycarbophil (Fiber Laxative (calcium polycarbophil)) 1,250 mg (2 x 625 mg) PO DAILY 30 days 60 tabs 3RF hydrocortisone 2.5% (Proctozone-HC) apply MD BID prn 1 appl MD BID PRN 30 grams 3RF hemorrhoids docusate sodium (Colace) 200 mg (2 x 100 mg) PO BEDTIME 60 caps 5RF polyethylene glycol 3350 (Miralax) 17 grams PO DAILY 510 grams 6RF Patient Instructions: hx adenoma- polyp not retrieved Repeat asymptomatic colonoscopy 5 years Consistent bowel regimen Repeat maintain high-fiber diet, fiber supplement Diverticulosis/diverticulitis ER protocol reviewed Avoid straining with hemorrhoids Declines surgical consult Coding Level of Care Code Est Pt Level 3 (57928) Diagnoses History of colon polyps Z86.010 Diverticulosis of colon K57.30 Hemorrhoids K64.9 Time Spent (min) 20
[2023-02-01 10:40] VITALS: BP 140/78; PULSE 57
== END 2023-02-01 11:37 | disposition home or self-care (01) ==
PROVIDERS: PCP Nurse Practitioner Family; Visit Provider Physician Assistant
DX: Z86.010 Personal history of colon polyps (principal); K57.30 Diverticulosis of large intestine without perforation or abscess without bleeding; K64.9 Unspecified hemorrhoids; Z71.2 Person consulting for explanation of examination or test findings
CPT/HCPCS: 99213

== ENCOUNTER → 2023-02-01 10:34 | Outpatient (BNVA) | payer MEDICARE, SELFPAY | PROVIDERS: PCP Nurse Practitioner Family; Visit Provider Physician Assistant | DX: K57.30 Diverticulosis of large intestine without perforation or abscess without bleeding (principal); K64.9 Unspecified hemorrhoids; Z86.010 Personal history of colon polyps | CPT/HCPCS: 99212 ==

== ENCOUNTER 2023-03-10 09:08 | Outpatient (REF) | payer MEDICARE, SELFPAY ==
[2023-03-10 09:42] LABS: MANUAL DIFF FLAG NO
[2023-03-10 10:02] LABS: Basophils Absolute Auto 0.1 X10*3/uL (0.0-0.2); Basophils Percent Auto 0.8 % (0-2); Eosinophils Absolute Auto 0.3 X10*3/uL (0.0-0.4); Eosinophils Percent Auto 3.1 % (0-4); Hematocrit 42.8 % (42.0-52.0); Hemoglobin 14.4 g/dl (14.0-18.0); Imm Gran Abs Auto 0.11 X10*3/uL (0.00-0.03); Imm Gran Pct Auto 1.4 % (0.0-0.4); Lymphocytes Absolute Auto 2.7 X10*3/uL (1.2-4.9); Lymphocytes Percent Auto 33.5 % (20-40); Mean Corpuscular HGB Conc 33.6 g/dl (31.0-36.0); Mean Corpuscular Hemoglobin 30.6 pg (27.0-33.0); Mean Corpuscular Volume 91.1 fL (80.0-98.0); Mean Platelet Volume 9.9 fL (9.4-12.4); Monocytes Absolute Auto 0.5 X10*3/uL (0.1-1.2); Monocytes Percent Auto 5.9 % (2-11); Neutrophils Absolute Auto 4.4 x10*3/uL (2.0-8.3); Neutrophils Percent Auto 55.3 % (45-73); Platelet Count 247 X10*3/uL (160-400); Red Cell Distribution Width 13.2 % (11.0-16.0); White Blood Count 7.9 X10*3/uL (4.8-10.8)
[2023-03-10 11:06] LABS: Alanine Aminotransferase 12 U/L (0-40); Albumin Level 4.2 g/dL (3.5-5.0); Alkaline Phosphatase 61 U/L (39-117); Anion Gap 12 (12-20); Aspartate Amino Transferase 15 U/L (5-37); Bilirubin Total 1.1 mg/dL (0.0-1.0); Blood Urea Nitrogen 25 mg/dL (9-16); Calcium 9.6 mg/dL (8.4-10.2); Carbon Dioxide 31 mmol/L (22-29); Chloride 104 mmol/L (96-108); Cholesterol 181 mg/dL (<200); Estimated Glomerular Filt Rate > 60; Glucose Random 101 mg/dL (60-115); HDL Cholesterol 57 mg/dL (>40); LDL Cholesterol Calculated 107 mg/dL (<100); Potassium 4.6 mmol/L (3.3-5.1); Sodium 142 mmol/L (135-145); Total Protein 6.7 g/dL (6.5-8.0); Triglycerides 89 mg/dL (<150)
[2023-03-10 11:08] LABS: Folate 7.4 ng/mL (> or = 4.0); Free T4 (Free Thyroxine) 0.81 ng/dL (0.71-1.85); Thyroid Stimulating Hormone 2.61 uIU/mL (0.32-4.0); Vitamin B12 815 pg/mL (200-900)
== END 2023-03-10 09:09 | disposition home or self-care (01) ==
LOC: HO.LAB 09:08
PROVIDERS: PCP Internal Medicine; Visit Provider Internal Medicine
DX: I10 Essential (primary) hypertension (principal); E78.00 Pure hypercholesterolemia, unspecified
CPT/HCPCS: 36415; 80053; 80061; 82607; 82746; 84439; 84443; 85025

== ENCOUNTER 2023-03-21 13:02 | Outpatient (AMB) | payer MEDICARE, SELFPAY ==
[2023-03-21 13:02] VITALS: BP 128/70; PULSE 58; O2SAT 95; BMI 35.6
--- NOTE | 2023-03-21 13:03 | MHC.PC.OV ---
Vital Signs 03/21/23 13:02 Height 5 ft 11 in Weight 255 lb 0.6 oz BMI 35.6 BP 128/70 Blood Pressure Location Lt brachial Position Sitting Pulse 58 Pulse Source Pulse Oximeter Pulse Oximetry (%) 95 Oxygen Delivery Method Room Air Intake Visit Reasons: Hypertension Measurement And Sensing Technician Required: No Allergies bacitracin Allergy (Intermediate, Verified 03/21/23 13:03) rash amlodipine Adverse Reaction (Intermediate, Uncoded 03/21/23 13:03) leg swelling Tobacco use date assessed: 03/21/23 Fall risk assessment: No Falls in past year Last assessed Fall Risk: 03/21/23 HPI Hypertension HPI Details 72-year-old obese male with severe obstructive sleep apnea lumbar spinal stenosis BPH hypertension COPD impaired glucose tolerance and gout last seen in December 2022. Patient is up-to-date with colonoscopy January 2023 under gastro as for the of severe sleep apnea 01/31/2023 bilevel pressure 16/6 cm using full face mask of large size recommended heated humidification. Patient has followed up with Pulmonary March 15 on BiPAP 16-6 cm water heated humidification [facility] Medical History (Updated 02/01/23 @ 18:59 by Zaid Barrett MD) Hypersomnia COVID-19 virus infection Otitis media Impacted cerumen of left ear Cerumen impaction Preoperative clearance COVID-19 virus infection Fever and chills Cervical radiculopathy Thrombophlebitis leg superficial Lumbar degenerative disc disease Fatty liver Osteoarthritis Carpal tunnel syndrome BPH (benign prostatic hyperplasia) Vitamin D deficiency Hypertension Obesity (BMI 30-39.9) COPD (chronic obstructive pulmonary disease) Gout Impaired glucose tolerance Peripheral vascular disease Surgical History History of back surgery History of back surgery History of colonoscopy History of varicose vein stripping History of right knee surgery History of elbow surgery History of removal of cyst History of carpal tunnel release Family History Father Lung cancer Brain cancer Mother No problems noted. Paternal Uncle Brain cancer Lung cancer Social History Housing: House Alcohol intake: current Alcohol intake frequency: 0-2 drinks per day Alcohol type: beer Patient Tobacco Use Status: Former Tobacco user Tobacco use type: Cigarette e-Cigarette/Vaping Use: Never Used Second Hand Smoke Exposure: No service: No Current occupational status: retired Cognitive needs: No Hearing needs: No Vision needs: No Questionnaire PHQ-9 Over the last 2 weeks, how often have you been bothered by any of the following problems? 1. Little interest or pleasure in doing things: not at all 2. Feeling down, depressed, or hopeless: not at all 3. Trouble falling or staying asleep, or sleeping too much: not at all 4. Feeling tired or having little energy: several days 5. Poor appetite or overeating: not at all 6. Feeling bad about yourself - or that you are a failure or have let yourself or your family down: not at all 7. Trouble concentrating on things, such as reading the newspaper or watching television: not at all 8. Moving or speaking so slowly that other people could have noticed. Or the opposite - being so fidgety or restless that you have been moving around a lot more than usual: not at all 9. Thoughts that you would be better off or of hurting yourself in some way: not at all Total score: 1 Depression Screening Interpretation: Negative Depression Screening Done: Yes 37982 - PHQ-9 Billing: Yes Source: Developed by Drs. Abiel Perez, Leonel Tom and colleagues, with an educational niurka from [employer]. Thrive Questionnaire Date Thrive assessed: 05/25/22 AUDIT C Alcohol Use Questionnaire (AUDIT-C) 1. How often do you have a drink containing alcohol?: 2-3 times a week 2. How many drinks containing alcohol do you have on a typical day when you are drinking?: 1 or 2 3. How often do you have six or more drinks on one occasion?: Never Total Score: 3 Score Reviewed/Action Taken: No ZACHARY-7 AMB Questionnaire ZACHARY-7 Date ZACHARY - 7 assessed: 05/25/22 Source: Developed by Drs. Abiel Perez, Leonel Tom and colleagues, with an educational niurka from [employer]. Physical exam (Primary Care) Vital Signs: Last Vital Signs Pulse 58 03/21/23 13:02 BP 128/70 03/21/23 13:02 Pulse Ox 95 03/21/23 13:02 Oxygen Delivery Method Room Air 03/21/23 13:02 BMI result Body Mass Index 35.6 Tobacco/Smoking Status: Tobacco use Status Tobacco use date assessed 03/21/23 03/21/23 13:04 Patient Tobacco Use Status Former Tobacco user 03/21/23 13:04 Tobacco use type Cigarette 03/21/23 13:04 e-Cigarette/Vaping Use Never Used 03/21/23 13:04 PHQ-9: PHQ-9 Score PHQ-9: Total score 1 03/21/23 13:29 Depression Screening Interpretation: Negative Thrive Assessment: Date of Thrive Assessment Date Thrive assessed 05/25/22 03/21/23 13:04 Const General: alert; No acute distress Eyes Conjunctivae: conjunctivae normal Resp Auscultation: clear to auscultation bilaterally Cardio Rate: regular rate Rhythm: regular rhythm GI Inspection: Yes normal to inspection Extrem General: Yes normal to inspection and No edema Assessment and Plan Assessment & Plan (1) Obesity (BMI 30-39.9): Code(s): E66.9 - Obesity, unspecified Plan: Diet and exercise (2) Hypertension: Code(s): I10 - Essential (primary) hypertension Qualifiers: Hypertension type: essential hypertension Qualified Code(s): I10 - Essential (primary) hypertension Plan: Continue with blood pressure medication. Decrease salt intake and exercise patient takes benazepril 40 mg once a day hydrochlorothiazide 25 mg once a day metoprolol 25 mg once a day (3) Impaired glucose tolerance: Code(s): R73.02 - Impaired glucose tolerance (oral) Plan: Decrease the amount of carbohydrate intake, pasta, bread, rice and potatoes are all sugar and that is aside from all the sweet stuff, remember that fruits are good but they are Sweet also. (4) COPD (chronic obstructive pulmonary disease): Code(s): J44.9 - Chronic obstructive pulmonary disease, unspecified Qualifiers: COPD type: emphysema Emphysema type: panlobular Qualified Code(s): J43.1 - Panlobular emphysema Plan: Continue with albuterol p.r.n. (5) Lumbar degenerative disc disease: Comment: Dr. Aguilera, Dr. Borjas 2020 Code(s): M51.36 - Other intervertebral disc degeneration, lumbar region Plan: Keep active lose the weight (6) Severe obstructive sleep apnea: Comment: Sleep titration study done January 2023 moderately severe obstructive sleep apnea with nocturnal hypoxemia. Bilevel pressure of 16/6 cms fullface mask large heated humidification Code(s): G47.33 - Obstructive sleep apnea (adult) (pediatric) Plan: PAtient still not having the CPAP and awaiting (7) Diverticulosis of colon: Comment: Sigmoid Colon: moderate severe diverticulosis Code(s): K57.30 - Diverticulosis of large intestine without perforation or abscess without bleeding Plan: High-fiber diet avoid the being constipated Coding Level of Care Code Est Pt Level 4 (63221) Diagnoses Obesity (BMI 30-39.9) E66.9 Essential hypertension I10 Hypertension type: essential hypertension Impaired glucose tolerance R73.02 Panlobular emphysema J43.1 COPD type: emphysema Emphysema type: panlobular Lumbar degenerative disc disease M51.36 Severe obstructive sleep apnea G47.33 Diverticulosis of colon K57.30
== END 2023-03-21 14:22 | disposition home or self-care (01) ==
PROVIDERS: PCP Nurse Practitioner Family; Visit Provider Internal Medicine
DX: J43.1 Panlobular emphysema (principal); E66.9 Obesity, unspecified; Z68.35 Body mass index [BMI] 35.0-35.9, adult; I10 Essential (primary) hypertension; R73.02 Impaired glucose tolerance (oral); M51.36 Other intervertebral disc degeneration, lumbar region; G47.33 Obstructive sleep apnea (adult) (pediatric); K57.30 Diverticulosis of large intestine without perforation or abscess without bleeding
CPT/HCPCS: 99214

== ENCOUNTER 2023-06-23 15:14 | Outpatient (AMB) | payer MEDICARE, SELFPAY ==
[2023-06-23 15:15] VITALS: BP 142/78; PULSE 103; O2SAT 98; BMI 35.2
--- NOTE | 2023-06-23 15:15 | A.OFFPC_ITS ---
Vital Signs 06/23/23 15:15 06/23/23 15:31 Height 5 ft 11 in Weight 252 lb 0.8 oz BMI 35.2 BP 142/78 H 134/80 Blood Pressure Location Lt brachial Lt brachial Position Sitting Sitting Pulse 103 H Pulse Source Pulse Oximeter Pulse Oximetry (%) 98 Oxygen Delivery Method Room Air Intake Visit Reasons: MONIQUE, HTN Surgical Scrub Technologist Required: No Allergies bacitracin Allergy (Intermediate, Verified 03/21/23 13:03) rash amlodipine Adverse Reaction (Intermediate, Uncoded 03/21/23 13:03) leg swelling Medication List - Last Reconciled 06/23/23 by Zaid Barrett, albuterol sulfate 90 mcg/actuation (ProAir HFA) 2 puffs inhalation Q4-6H PRN albuterol sulfate 2.5 mg (3 mL) inhalation Q4-6H PRN 30 days allopurinol 300 mg PO DAILY benazepril 40 mg PO DAILY calcium polycarbophil (Fiber Laxative (calcium polycarbophil)) 1,250 mg (2 x 625 mg) PO DAILY 30 days cholecalciferol (vitamin D3) 50 mcg PO DAILY [CPAP Bilevel pressure of 16/6 cms fullface mask large heated humidification As directed Bilevel pressure of 16/6 cms fullface mask large heated humidification] docusate sodium (Colace) 200 mg (2 x 100 mg) PO BEDTIME finasteride 5 mg PO DAILY hydrochlorothiazide 25 mg PO DAILY hydrocortisone 2.5% (Proctozone-HC) 1 appl AR BID PRN metoprolol succinate ER 25 mg PO DAILY polyethylene glycol 3350 (Miralax) 17 grams PO DAILY tamsulosin 0.4 mg PO DAILY tramadol 50 mg PO TID PRN Tobacco use date assessed: 06/23/23 Fall risk assessment: No Falls in past year Last assessed Fall Risk: 06/23/23 HPI MONIQUE, HTN HPI Details 73-year-old obese male with hypertension impaired glucose tolerance COPD lumbar degenerative disc disease severe obstructive sleep apnea coming in for follow-up. Last seen in March 2023. Patient is up-to-date with colonoscopy January 2023. Review of the notes in May was seen by Rheumatology for knee pain diagnosis of osteoarthritis injections done bilaterally. And the patient was on meloxicam. Patient also follows up with urology seen in April 2023 BPH on finasteride and tamsulosin continuing to monitor. [facility] Medical History (Updated 02/01/23 @ 18:59 by Zaid Barrett MD) Hypersomnia COVID-19 virus infection Otitis media Impacted cerumen of left ear Cerumen impaction Preoperative clearance COVID-19 virus infection Fever and chills Cervical radiculopathy Thrombophlebitis leg superficial Lumbar degenerative disc disease Fatty liver Osteoarthritis Carpal tunnel syndrome BPH (benign prostatic hyperplasia) Vitamin D deficiency Hypertension Obesity (BMI 30-39.9) COPD (chronic obstructive pulmonary disease) Gout Impaired glucose tolerance Peripheral vascular disease Surgical History History of back surgery History of back surgery History of colonoscopy History of varicose vein stripping History of right knee surgery History of elbow surgery History of removal of cyst History of carpal tunnel release Family History Father Lung cancer Brain cancer Mother No problems noted. Paternal Uncle Brain cancer Lung cancer Social History Housing: House Alcohol intake: current Alcohol intake frequency: 0-2 drinks per day Alcohol type: beer Patient Tobacco Use Status: Former Tobacco user Tobacco use type: Cigarette e-Cigarette/Vaping Use: Never Used Second Hand Smoke Exposure: No service: No Current occupational status: retired Cognitive needs: No Hearing needs: No Vision needs: No Questionnaire Thrive Questionnaire Date Thrive assessed: 05/25/22 AUDIT C Alcohol Use Questionnaire (AUDIT-C) 1. How often do you have a drink containing alcohol?: 2-3 times a week 2. How many drinks containing alcohol do you have on a typical day when you are drinking?: 1 or 2 3. How often do you have six or more drinks on one occasion?: Never Total Score: 3 Score Reviewed/Action Taken: No ZACHARY-7 AMB Questionnaire ZACHARY-7 Date ZACHARY - 7 assessed: 06/23/23 Source: Developed by Drs. Abiel Perez, Ceci Foss, Leonel Ram and colleagues, with an educational niurka from [employer]. Physical exam (Primary Care) Vital Signs: Last Vital Signs Pulse 103 H 06/23/23 15:15 BP 142/78 H 06/23/23 15:15 Pulse Ox 98 06/23/23 15:15 Oxygen Delivery Method Room Air 06/23/23 15:15 BMI result Body Mass Index 35.2 Tobacco/Smoking Status: Tobacco use Status Tobacco use date assessed 06/23/23 06/23/23 15:21 Patient Tobacco Use Status Former Tobacco user 06/23/23 15:21 Tobacco use type Cigarette 06/23/23 15:21 e-Cigarette/Vaping Use Never Used 06/23/23 15:21 Thrive Assessment: Date of Thrive Assessment Date Thrive assessed 05/25/22 06/23/23 15:21 Const General: alert; No acute distress Eyes Conjunctivae: conjunctivae normal Resp Auscultation: clear to auscultation bilaterally Cardio Rate: regular rate Rhythm: regular rhythm GI Inspection: Yes normal to inspection Extrem General: Yes normal to inspection and No edema Assessment and Plan Assessment & Plan (1) Impaired glucose tolerance: Code(s): R73.02 - Impaired glucose tolerance (oral) Plan: Decrease the amount of carbohydrate intake, pasta, bread, rice and potatoes are all sugar and that is aside from all the sweet stuff, remember that fruits are good but they are Sweet also. (2) COPD (chronic obstructive pulmonary disease): Code(s): J44.9 - Chronic obstructive pulmonary disease, unspecified Qualifiers: COPD type: emphysema Emphysema type: panlobular Qualified Code(s): J43.1 - Panlobular emphysema Plan: Continue with the inhaler ProAir- controlled (3) Obesity (BMI 30-39.9): Code(s): E66.9 - Obesity, unspecified Plan: Diet and exercise (4) Hypertension: Code(s): I10 - Essential (primary) hypertension Qualifiers: Hypertension type: essential hypertension Qualified Code(s): I10 - Essential (primary) hypertension Plan: Continue with blood pressure medication. Decrease salt intake and exercise on metoprolol 25 mg once a day hydrochlorothiazide 25 mg once a day benazepril 40 mg once a day (5) BPH (benign prostatic hyperplasia): Code(s): N40.0 - Benign prostatic hyperplasia without lower urinary tract symptoms Qualifiers: Lower urinary tract symptom presence: symptoms present Lower urinary tract symptom detail: urinary frequency Qualified Code(s): N40.1 - Benign prostatic hyperplasia with lower urinary tract symptoms; R35.0 - Frequency of micturition Plan: Patient follows up with urology and stable on finasteride and tamsulosin (6) Primary osteoarthritis of knees, bilateral: Code(s): M17.0 - Bilateral primary osteoarthritis of knee Plan: Patient has seen Rheumatology and has had injections in both knees. Has discussed with him regarding long-term expectations. (7) Severe obstructive sleep apnea: Comment: Sleep titration study done January 2023 moderately severe obstructive sleep apnea with nocturnal hypoxemia. Bilevel pressure of 16/6 cms fullface mask large heated humidification Code(s): G47.33 - Obstructive sleep apnea (adult) (pediatric) Plan: Discussed with the patient the need and importance of treating sleep apnea. ON the CPAP > 4 hours and benefits from this. Medications: Refilled benazepril 40 mg PO DAILY 90 tabs 3RF I10 - Essential (primary) hypertension hydrochlorothiazide 25 mg PO DAILY 90 tabs 3RF I10 - Essential (primary) hypertension metoprolol succinate ER 25 mg PO DAILY 90 tabs 3RF I10 - Essential (primary) hypertension Coding Level of Care Code Est Pt Level 4 (10522) Diagnoses Impaired glucose tolerance R73.02 Panlobular emphysema J43.1 COPD type: emphysema Emphysema type: panlobular Obesity (BMI 30-39.9) E66.9 Essential hypertension I10 Hypertension type: essential hypertension Benign prostatic hyperplasia with urinary frequency N40.1; R35.0 Lower urinary tract symptom presence: symptoms present Lower urinary tract symptom detail: urinary frequency Primary osteoarthritis of knees, bilateral M17.0 Severe obstructive sleep apnea G47.33
[2023-06-23 15:31] VITALS: BP 134/80
== END 2023-06-23 15:45 | disposition home or self-care (01) ==
PROVIDERS: PCP Internal Medicine; Visit Provider Internal Medicine
DX: R73.02 Impaired glucose tolerance (oral) (principal); J43.1 Panlobular emphysema; E66.9 Obesity, unspecified; Z68.35 Body mass index [BMI] 35.0-35.9, adult; I10 Essential (primary) hypertension; N40.1 Benign prostatic hyperplasia with lower urinary tract symptoms; R35.0 Frequency of micturition; M17.0 Bilateral primary osteoarthritis of knee; G47.33 Obstructive sleep apnea (adult) (pediatric)
CPT/HCPCS: 99214

== ENCOUNTER 2023-08-10 12:57 | Outpatient (AMB) | payer MEDICARE, SELFPAY ==
[2023-08-10 13:09] VITALS: BP 120/68; PULSE 51; O2SAT 95; BMI 35.8
--- NOTE | 2023-08-10 13:09 | AM.OFFVISMDC ---
Intake Vital Signs 08/10/23 13:09 Height 5 ft 11 in Weight 257 lb BMI 35.8 BP 120/68 Blood Pressure Location Lt brachial Position Sitting Pulse 51 Pulse Source Pulse Oximeter Pulse Oximetry (%) 95 Oxygen Delivery Method Room Air Intake Visit Reasons: [facility] G0439 Allergies bacitracin Allergy (Intermediate, Verified 08/10/23 13:10) rash amlodipine Adverse Reaction (Intermediate, Uncoded 08/10/23 13:10) leg swelling Medication List - Last Reconciled 08/10/23 by Zaid Barrett MD albuterol sulfate 90 mcg/actuation (ProAir HFA) 2 puffs inhalation Q4-6H PRN albuterol sulfate 2.5 mg (3 mL) inhalation Q4-6H PRN 30 days allopurinol 300 mg PO DAILY benazepril 40 mg PO DAILY calcium polycarbophil (Fiber Laxative (calcium polycarbophil)) 1,250 mg (2 x 625 mg) PO DAILY 30 days cholecalciferol (vitamin D3) 50 mcg PO DAILY [CPAP Bilevel pressure of 16/6 cms fullface mask large heated humidification As directed Bilevel pressure of 16/6 cms fullface mask large heated humidification] docusate sodium (Colace) 200 mg (2 x 100 mg) PO BEDTIME finasteride 5 mg PO DAILY hydrochlorothiazide 25 mg PO DAILY hydrocortisone 2.5% (Proctozone-HC) 1 appl IN BID PRN meloxicam 15 mg PO DAILY metoprolol succinate ER 25 mg PO DAILY polyethylene glycol 3350 (Miralax) 17 grams PO DAILY tamsulosin 0.4 mg PO DAILY tramadol 50 mg PO TID PRN HPI [facility] G0439 HPI Details 73-year-old obese male with impaired glucose tolerance COPD hypertension BPH severe obstructive sleep apnea and osteoarthritis of the knees coming in for annual well visit last seen in June 2023. Patient's colonoscopy is up-to-date January 2023 5-7 years. had dizzines one time, ? PATIENT TAKING benzepril with HCTZ??? together- [facility] Medical History (Updated 08/10/23 @ 18:15 by Zaid Barrett MD) Screening for colon cancer Hypersomnia COVID-19 virus infection Otitis media Impacted cerumen of left ear Cerumen impaction Preoperative clearance COVID-19 virus infection Fever and chills Cervical radiculopathy Thrombophlebitis leg superficial Lumbar degenerative disc disease Fatty liver Osteoarthritis Carpal tunnel syndrome BPH (benign prostatic hyperplasia) Vitamin D deficiency Hypertension Obesity (BMI 30-39.9) COPD (chronic obstructive pulmonary disease) Gout Impaired glucose tolerance Peripheral vascular disease Surgical History History of back surgery History of back surgery History of colonoscopy History of varicose vein stripping History of right knee surgery History of elbow surgery History of removal of cyst History of carpal tunnel release Family History Father Lung cancer Brain cancer Mother No problems noted. Paternal Uncle Brain cancer Lung cancer Social History (Updated 08/10/23 @ 13:31 by Zaid Barrett MD) Housing: House Alcohol intake: current Alcohol intake frequency: 0-2 drinks per day Alcohol type: beer Comment: 2 drinks a day Patient Tobacco Use Status: Former Tobacco user Tobacco use type: Cigarette Years Smoked: quit 2004 e-Cigarette/Vaping Use: Never Used Second Hand Smoke Exposure: No service: No Current occupational status: retired Cognitive needs: No Hearing needs: No Vision needs: No Questionnaire Medicare Wellness Checkup [age] What gender do you identify with?: male During the past 4 weeks, how much have you been bothered by emotional problems such as feeling anxious, depressed, irritable, sad or downhearted, and blue?: not at all During the past 4 weeks, has your physical & emotional health limited your social activities with family, friends, neighbors, or groups?: not at all During the past 4 weeks, how much bodily pain have you generally had?: moderate pain During the past 4 weeks, was someone available to help you if you needed & wanted help?: yes, as much as I wanted During the past 4 weeks, what was the hardest physical activity you could do for at least 2 minutes?: very heavy Can you get to places out of walking distance without help? (For eg., can you travel alone on buses, taxis or drive your car?): Yes Can you go shopping for groceries or clothes without someone's help?: Yes Can you prepare your own meals?: Yes Can you do your housework without help?: Yes Because of any health problems, do you need the help of another person with your personal care needs such as eating, bathing, dressing or getting around the house?: Yes Can you handle your own money without help?: Yes During the past 4 weeks, how would you rate your health in general?: very good During the past 4 weeks how have things been going for you?: very well; could hardly better Are you having difficulties driving your car?: no Do you always fasten your seat belt when you are in a car?: yes, usually (always) During past 4 weeks, have you been bothered by the following: never: Trouble eating well?, Teeth or denture problems? and Problems using the telephone?, sometimes: Falling or dizzy when standing up and Tiredness or fatigue? and often: Sexual problems? Have you fallen 2 or more times in the past year?: No Are you afraid of falling?: No Are you a smoker?: no During the past 4 weeks, how many drinks of wine, beer, or other alcoholic beverages did you have?: 10 or more per week Do you exercise for about 20 minutes 3 or more times a week?: yes, most of the time Have you been given information to help with the following?: no: Hazards in your house that might hurt you? and no: Keeping track of your medications? How often do you have trouble taking medicines the way you have been told to take them?: I always take medicine as prescribed How confident are you that you can control & manage most of your health problems?: very confident What is your race?: White PHQ-9 Over the last 2 weeks, how often have you been bothered by any of the following problems? 1. Little interest or pleasure in doing things: not at all 2. Feeling down, depressed, or hopeless: not at all 3. Trouble falling or staying asleep, or sleeping too much: not at all 4. Feeling tired or having little energy: several days 5. Poor appetite or overeating: not at all 6. Feeling bad about yourself - or that you are a failure or have let yourself or your family down: not at all 7. Trouble concentrating on things, such as reading the newspaper or watching television: not at all 8. Moving or speaking so slowly that other people could have noticed. Or the opposite - being so fidgety or restless that you have been moving around a lot more than usual: not at all 9. Thoughts that you would be better off or of hurting yourself in some way: not at all Total score: 1 Depression Screening Interpretation: Positive Depression Screening Done: Yes 10093 - PHQ-9 Billing: Yes Source: Developed by Drs. Abiel Perez, Leonel Tom and colleagues, with an educational niurka from [employer]. Thrive Questionnaire Date Thrive assessed: 08/10/23 I am a: Patient What is your living situation today?: I have a steady place to live Within the past 12 months, did the food you bought not last and you didn't have the money to get more?: Never true Within the past 12 months, did you worry whether your food would run out before you got money to buy more?: Never true Do you have trouble paying for medicines?: No Do you have trouble getting transportation to medical appointments?: No Do you have trouble paying your heating and electricity bill?: No Do you have trouble taking care of your child, family member or friend?: No Do you have trouble with day-to-day activities such as bathing, preparing meals, shopping, managing finances, etc.?: No Are you currently unemployed and looking for a job?: No Are you interested in more education?: No Currently or been in a relationship where the following occur: no concerns reported THRIVE Score: 0 ZACHARY-7 AMB Questionnaire ZACHARY-7 Date ZACHARY - 7 assessed: 06/23/23 Source: Developed by Drs. Abiel Perez, Ceci Foss, Leonel Ram and colleagues, with an educational niurka from [employer]. Review of Systems Const Denies poor appetite and Denies weakness Eyes Denies no additional complaints ENT Reports Normal hearing present, Denies dizziness, Denies nasal congestion, Denies tinnitus and Denies sore throat Card Denies chest pain, Denies syncope, Denies rapid heart rate and Denies dyspnea Resp Denies cough and Denies dyspnea GI Denies change in stool character, Reports constipation, Denies diarrhea, Denies nausea and Denies vomiting Denies dysuria and Denies urinary frequency Neuro Reports Normal hearing present, Denies confusion, Denies dizziness, Denies syncope and Denies weakness Psych Denies confusion Physical Exam Vital Signs: Last Vital Signs Pulse 51 08/10/23 13:09 BP 120/68 08/10/23 13:09 Pulse Ox 95 08/10/23 13:09 Oxygen Delivery Method Room Air 08/10/23 13:09 BMI result Body Mass Index 35.8 Const General: No confusion Orientation/consciousness: No confusion HEENT Head: Yes normocephalic Ears: external ears normal and TM's normal bilaterally Face and sinus: Yes normal facial exam Mouth: moist mucous membranes Throat: Yes tonsils normal Eyes Conjunctivae: conjunctivae normal Pupils: Equal, round and reactive pupils present and Pupil accommodation reflex normal Direct Ophthalmoscopy: normal light reflex Neck Neck: No lymphadenopathy Thyroid: Thyroid normal Chest Chest palpation & inspection: normal inspection of the chest Resp Effort & Inspection: normal respiratory effort and no audible wheezes Auscultation: clear to auscultation bilaterally, no crackles, no wheezes and lung sounds not diminished Cardio Rate: regular rate Rhythm: regular rhythm Peripheral pulses: radial pulses present and dorsalis pedis present GI Palpation (GI): no masses Auscultation: normal bowel sounds and normoactive bowel sounds Rectal Exam - Male: Yes deferred Skin General skin exam: no rashes or lesions noted Rashes: no rashes Neuro General: No confusion Cranial nerves: Yes Equal, round and reactive pupils present and Yes Normal hearing present Cognition (Neuro): normal cognition Gait exam (Neuro): Normal gait present Motor exam (neuro): 5/5 motor strength present throughout Deep tendon reflexes (DTR's): Right brachioradialis reflex intensity grade: 2+, Left brachioradialis reflex intensity grade: 2+, Right patellar reflex intensity grade: 2+ and Left patellar reflex intensity grade: 2+ Extrem General: No edema Assessment & Plan Assessment & Plan (1) Medicare annual wellness visit, subsequent: Code(s): Z00.00 - Encounter for general adult medical examination without abnormal findings Plan: Keep well hydrated, eat healthy, keep active and have adequate sleep. (2) Severe obstructive sleep apnea: Comment: Sleep titration study done January 2023 moderately severe obstructive sleep apnea with nocturnal hypoxemia. Bilevel pressure of 16/6 cms fullface mask large heated humidification Code(s): G47.33 - Obstructive sleep apnea (adult) (pediatric) Plan: Continue to use the CPAP more than 4 hours a night and benefits from this. (3) Impaired glucose tolerance: Code(s): R73.02 - Impaired glucose tolerance (oral) Plan: Decrease the amount of carbohydrate intake, pasta, bread, rice and potatoes are all sugar and that is aside from all the sweet stuff, remember that fruits are good but they are Sweet also. (4) COPD (chronic obstructive pulmonary disease): Code(s): J44.9 - Chronic obstructive pulmonary disease, unspecified Qualifiers: COPD type: emphysema Emphysema type: panlobular Qualified Code(s): J43.1 - Panlobular emphysema Plan: Albuterol inhaler continue to use. (5) Obesity (BMI 30-39.9): Code(s): E66.9 - Obesity, unspecified Plan: Diet and exercise (6) Hypertension: Code(s): I10 - Essential (primary) hypertension Qualifiers: Hypertension type: essential hypertension Qualified Code(s): I10 - Essential (primary) hypertension Plan: Continue with blood pressure medication. Decrease salt intake and exercise on metoprolol 25 mg once a day hydrochlorothiazide 25 mg once a day and benazepril 40 mg once a day (7) BPH (benign prostatic hyperplasia): Code(s): N40.0 - Benign prostatic hyperplasia without lower urinary tract symptoms Qualifiers: Lower urinary tract symptom detail: urinary frequency Lower urinary tract symptom presence: symptoms present Qualified Code(s): N40.1 - Benign prostatic hyperplasia with lower urinary tract symptoms; R35.0 - Frequency of micturition Plan: Continue with tamsulosin (8) Lumbar spinal stenosis: Comment: Dr. Borjas August 2020 L3 for laminotomy, decompression facetomy partial L3-L4 Code(s): M48.061 - Spinal stenosis, lumbar region without neurogenic claudication Qualifiers: Neurogenic claudication status: with neurogenic claudication Qualified Code(s): M48.062 - Spinal stenosis, lumbar region with neurogenic claudication Plan: Lose the weight keep active on tramadol as needed. (9) Hearing difficulty: Code(s): H91.90 - Unspecified hearing loss, unspecified ear Qualifiers: Laterality: bilateral Qualified Code(s): H91.93 - Unspecified hearing loss, bilateral Plan: Requested hearing test (10) Actinic keratosis: Code(s): L57.0 - Actinic keratosis Plan: Dermatology referral done Orders: Referrals Speech and Hearing Referral H91.90 - Unspecified hearing loss, unspecified ear Dermatology Referral L57.0 - Actinic keratosis Quality Reporting (2019) Depression/Bipolar (159/160/161/177) PHQ-9: Total score: 1 Coding Level of Care Code Medicare Subsequent (G0439) Diagnoses Medicare annual wellness visit, subsequent Z00.00 Severe obstructive sleep apnea G47.33 Impaired glucose tolerance R73.02 Panlobular emphysema J43.1 COPD type: emphysema Emphysema type: panlobular Obesity (BMI 30-39.9) E66.9 Essential hypertension I10 Hypertension type: essential hypertension Benign prostatic hyperplasia with urinary frequency N40.1; R35.0 Lower urinary tract symptom detail: urinary frequency Lower urinary tract symptom presence: symptoms present Spinal stenosis of lumbar region with neurogenic claudication M48.062 Neurogenic claudication status: with neurogenic claudication Hearing difficulty of both ears H91.93 Laterality: bilateral Actinic keratosis L57.0
== END 2023-08-10 15:57 | disposition home or self-care (01) ==
PROVIDERS: Visit Provider Internal Medicine
DX: Z00.00 Encounter for general adult medical examination without abnormal findings (principal); J43.1 Panlobular emphysema; G47.33 Obstructive sleep apnea (adult) (pediatric); R73.02 Impaired glucose tolerance (oral); E66.9 Obesity, unspecified; I10 Essential (primary) hypertension; N40.1 Benign prostatic hyperplasia with lower urinary tract symptoms; R35.0 Frequency of micturition; M48.062 Spinal stenosis, lumbar region with neurogenic claudication; H91.93 Unspecified hearing loss, bilateral; L57.0 Actinic keratosis
CPT/HCPCS: G0439

== ENCOUNTER 2023-09-13 11:50 | Outpatient (REF) | payer MEDICARE, SELFPAY ==
--- NOTE | ~2023-09-13 | XR_ITS ---
EXAMINATION: XR CHEST CLINICAL INFORMATION: Patient states cough after going on cruise. COMPARISON: 04/27/2017 TECHNIQUE: Frontal View of the chest was obtained. FINDINGS: There are is no gross pneumothorax. Heart size is normal. Degenerative changes in the thoracic spine. Moderate bibasilar patchy opacities, left greater than right may represent an infectious/inflammatory process. XR/XR chest 1V IMPRESSION: Moderate bibasilar patchy opacities, left greater than right may represent an infectious/inflammatory process. Recommend follow-up imaging in 4-6 weeks to confirm resolution and exclude underlying pathology. This study was presented to [facility] 09/26/2023 for interpretation. PSA staff will provide results to referring provider at this time.
== END 2023-09-13 11:51 | disposition home or self-care (01) ==
LOC: HO.XRAY 11:50
PROVIDERS: PCP Internal Medicine; Visit Provider Internal Medicine
DX: R05.9 Cough, unspecified (principal)
CPT/HCPCS: 71045

== ENCOUNTER 2023-10-20 12:23 | Outpatient (AMB) | payer MEDICARE, SELFPAY ==
--- NOTE | 2023-10-20 12:34 | A.OFFPC_ITS ---
Vital Signs 10/20/23 12:35 Height 5 ft 11 in Weight 252 lb BMI 35.1 BP 138/82 Blood Pressure Location Lt brachial Position Sitting Pulse 62 Pulse Source Pulse Oximeter Pulse Oximetry (%) 97 Oxygen Delivery Method Room Air Intake Visit Reasons: Referral to Ortho, pain medication request Allergies bacitracin Allergy (Intermediate, Verified 10/20/23 12:35) rash amlodipine Adverse Reaction (Intermediate, Uncoded 10/20/23 12:35) leg swelling Medication List - Last Reconciled 10/20/23 by Zaid Barrett MD albuterol sulfate 90 mcg/actuation (ProAir HFA) 2 puffs inhalation Q4-6H PRN albuterol sulfate 2.5 mg (3 mL) inhalation Q4-6H PRN 30 days allopurinol 300 mg PO DAILY benazepril 40 mg PO DAILY calcium polycarbophil (Fiber Laxative (calcium polycarbophil)) 1,250 mg (2 x 625 mg) PO DAILY 30 days cefpodoxime 200 mg PO BID cholecalciferol (vitamin D3) 50 mcg PO DAILY [CPAP Bilevel pressure of 16/6 cms fullface mask large heated humidification As directed Bilevel pressure of 16/6 cms fullface mask large heated humidification] docusate sodium (Colace) 200 mg (2 x 100 mg) PO BEDTIME finasteride 5 mg PO DAILY hydrochlorothiazide 25 mg PO DAILY hydrocortisone 2.5% (Proctozone-HC) 1 appl ME BID PRN meloxicam 15 mg PO DAILY metoprolol succinate ER 25 mg PO DAILY oxycodone-acetaminophen 5-325 mg (Percocet) 1 tab PO Q8H PRN polyethylene glycol 3350 (Miralax) 17 grams PO DAILY tamsulosin 0.4 mg PO DAILY tramadol 50 mg PO TID PRN Tobacco use date assessed: 06/23/23 Fall risk assessment: 1 Fall in past year Last assessed Fall Risk: 10/20/23 Dental Screening Dental Screen Date: 10/20/23 Did you have a dental visit in the last 12 months?: Yes Did you have a dental problem in the last 6 months where you did not have access to dental care?: No Was dental information given to patient?: Patient has dentist HPI Referral to Ortho, pain medication request HPI Details 73-year-old obese male with multiple med ical problems from obstructive sleep apnea impaired glucose tolerance COPD hypertension BPH lumbar spinal stenosis coming in for an acute problem. Patient was last seen for an annual wellness in August 2023. Patient complains of left knee pain has been seeing Dr. Cedeño for injecting knee Q 5 months asking for surgery [facility] Medical History (Updated 10/20/23 @ 12:51 by Zaid Barrett MD) Screening for colon cancer Hypersomnia COVID-19 virus infection Otitis media Impacted cerumen of left ear Cerumen impaction Preoperative clearance COVID-19 virus infection Fever and chills Cervical radiculopathy Thrombophlebitis leg superficial Lumbar degenerative disc disease Fatty liver Osteoarthritis Carpal tunnel syndrome BPH (benign prostatic hyperplasia) Vitamin D deficiency Hypertension Obesity (BMI 30-39.9) COPD (chronic obstructive pulmonary disease) Gout Impaired glucose tolerance Peripheral vascular disease Surgical History History of back surgery History of back surgery History of colonoscopy History of varicose vein stripping History of right knee surgery History of elbow surgery History of removal of cyst History of carpal tunnel release Family History Father Lung cancer Brain cancer Mother No problems noted. Paternal Uncle Brain cancer Lung cancer Social History (Updated 08/10/23 @ 13:31 by Zaid Barrett MD) Housing: House Alcohol intake: current Alcohol intake frequency: 0-2 drinks per day Alcohol type: beer Comment: 2 drinks a day Patient Tobacco Use Status: Former Tobacco user Tobacco use type: Cigarette Years Smoked: quit 2004 e-Cigarette/Vaping Use: Never Used Second Hand Smoke Exposure: No service: No Current occupational status: retired Cognitive needs: No Hearing needs: No Vision needs: No Questionnaire PHQ-9 Over the last 2 weeks, how often have you been bothered by any of the following problems? 1. Little interest or pleasure in doing things: not at all 2. Feeling down, depressed, or hopeless: not at all 3. Trouble falling or staying asleep, or sleeping too much: not at all 4. Feeling tired or having little energy: several days 5. Poor appetite or overeating: not at all 6. Feeling bad about yourself - or that you are a failure or have let yourself or your family down: not at all 7. Trouble concentrating on things, such as reading the newspaper or watching television: not at all 8. Moving or speaking so slowly that other people could have noticed. Or the opposite - being so fidgety or restless that you have been moving around a lot more than usual: not at all 9. Thoughts that you would be better off or of hurting yourself in some way: not at all Total score: 1 Depression Screening Interpretation: Positive Depression Screening Done: Yes 77169 - PHQ-9 Billing: Yes Source: Developed by Drs. Abiel Perez, Leonel Tom and colleagues, with an educational niurka from [employer]. Thrive Questionnaire Date Thrive assessed: 08/10/23 AUDIT C Alcohol Use Questionnaire (AUDIT-C) 1. How often do you have a drink containing alcohol?: 2-3 times a week 2. How many drinks containing alcohol do you have on a typical day when you are drinking?: 1 or 2 3. How often do you have six or more drinks on one occasion?: Never Total Score: 3 Score Reviewed/Action Taken: No ZACHARY-7 AMB Questionnaire ZACHARY-7 Date ZACHARY - 7 assessed: 06/23/23 Source: Developed by Drs. Abiel Perez, Ceci Foss, Leonel Ram and colleagues, with an educational niurka from [employer]. Physical exam (Primary Care) Vital Signs: Last Vital Signs Pulse 62 10/20/23 12:35 BP 138/82 10/20/23 12:35 Pulse Ox 97 10/20/23 12:35 Oxygen Delivery Method Room Air 10/20/23 12:35 BMI result Body Mass Index 35.1 Tobacco/Smoking Status: Tobacco use Status Tobacco use date assessed 06/23/23 10/20/23 12:42 Patient Tobacco Use Status Former Tobacco user 10/20/23 12:42 Tobacco use type Cigarette 10/20/23 12:42 e-Cigarette/Vaping Use Never Used 10/20/23 12:42 PHQ-9: PHQ-9 Score PHQ-9: Total score 1 10/20/23 12:49 Depression Screening Interpretation: Positive Thrive Assessment: Date of Thrive Assessment Date Thrive assessed 08/10/23 10/20/23 12:42 Assessment and Plan Assessment & Plan (1) Bilateral primary osteoarthritis of knee: Code(s): M17.0 - Bilateral primary osteoarthritis of knee Plan: Known to me and so will give 14 tablets of Percocet and discussed about the side effects of the medication. Meanwhile referral to orthopedics done Orders: Referrals Orthopedics Referral M17.0 - Bilateral primary osteoarthritis of knee Medications: New oxycodone-acetaminophen 5-325 mg (Percocet) Partial Fill upon patient request. 1 tab PO Q8H PRN 14 tabs 0RF pain M17.0 - Bilateral primary osteoarthritis of knee Coding Level of Care Code Est Pt Level 3 (59718) Diagnoses Bilateral primary osteoarthritis of knee M17.0
[2023-10-20 12:35] VITALS: BP 138/82; PULSE 62; O2SAT 97; BMI 35.1
== END 2023-10-20 13:05 | disposition home or self-care (01) ==
PROVIDERS: PCP Internal Medicine; Visit Provider Internal Medicine
DX: M17.0 Bilateral primary osteoarthritis of knee (principal)
CPT/HCPCS: 99213

== ENCOUNTER 2023-10-27 08:20 | Outpatient (REF) | payer MEDICARE, SELFPAY | END 2023-10-27 08:21 | disposition home or self-care (01) | LOC: HO.SH 08:20 | PROVIDERS: Visit Provider Internal Medicine | DX: Z01.118 Encounter for examination of ears and hearing with other abnormal findings (principal); H90.3 Sensorineural hearing loss, bilateral | CPT/HCPCS: 92557 ==

== ENCOUNTER 2023-12-22 10:50 | Outpatient (AMB) | payer MEDICARE, SELFPAY ==
[2023-12-22 11:03] VITALS: BMI 35.7
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
== END 2023-12-22 12:13 | disposition home or self-care (01) ==
PROVIDERS: PCP Internal Medicine; Visit Provider Nurse Practitioner Family
DX: G47.33 Obstructive sleep apnea (adult) (pediatric) (principal); G47.39 Other sleep apnea; J43.1 Panlobular emphysema; G47.34 Idiopathic sleep related nonobstructive alveolar hypoventilation; R25.9 Unspecified abnormal involuntary movements
CPT/HCPCS: 99204

== ENCOUNTER → 2023-12-22 10:50 | Outpatient (BNVA) | payer MEDICARE, SELFPAY | PROVIDERS: PCP Internal Medicine; Visit Provider Nurse Practitioner Family | DX: G47.33 Obstructive sleep apnea (adult) (pediatric) (principal); G47.39 Other sleep apnea; J43.1 Panlobular emphysema | CPT/HCPCS: 99202 ==

== ENCOUNTER 2024-01-04 10:18 | Outpatient (AMB) | payer MEDICARE, SELFPAY ==
--- NOTE | 2024-01-04 10:27 | A.OFFVIS_ITS ---
Vital Signs 01/04/24 10:28 Height 5 ft 11 in Weight 259 lb BMI 36.1 BP 108/60 Blood Pressure Location Lt brachial Position Sitting Pulse 56 Pulse Source Pulse Oximeter Pulse Oximetry (%) 96 Oxygen Delivery Method Room Air Intake Visit Reasons: Sleep apnea Allergies bacitracin Allergy (Intermediate, Verified 01/04/24 10:31) rash amlodipine Adverse Reaction (Intermediate, Uncoded 01/04/24 10:31) leg swelling HPI HPI Sleep apnea: Details: Keaton is a pleasant 73-year-old male, former smoker, quit 20 years ago with approximately 60 pack-year history, with underlying hypertension full and obstructive sleep apnea on CPAP therapy. He was referred by sleep medicine. He underwent home sleep study which revealed moderate to severe MONIQUE with an AHI 22, and nocturnal hypoxemia less than 80% for 136 minutes low as 72%. He underwent in lab titration study in January 2023 and was placed on BiPAP therapy with settings of 16/6. He continued with apneic events and was recently switched to CPAP mode with a pressure of 8 cm. He reports some switching to CPAP mode MONIQUE symptoms have significantly improved. He has been using CPAP therapy without 100% compliance, minimally an average AHI of 1.5. In regards to nocturnal hypoxemia, he has an order for overnight oximetry to be performed. He is awaiting the device to be delivered. The main reason for referral was his history of COPD. He reports intermittent cough occasionally with mucus, unsure of the color, with dyspnea on exertion and intermittent wheezing. He has albuterol MDI and nebulizer which he has been using frequently. He denies prior history of asthma. He reports likely seasonal allergies, no recent allergy testing. Denies any occupational exposures. He reports father, smoker with history of emphysema and sister, smoker, with stage III lung cancer. [facility] Medical History Screening for colon cancer Hypersomnia COVID-19 virus infection Otitis media Impacted cerumen of left ear Cerumen impaction Preoperative clearance COVID-19 virus infection Fever and chills Cervical radiculopathy Thrombophlebitis leg superficial Lumbar degenerative disc disease Fatty liver Osteoarthritis Carpal tunnel syndrome BPH (benign prostatic hyperplasia) Vitamin D deficiency Hypertension Obesity (BMI 30-39.9) COPD (chronic obstructive pulmonary disease) Gout Impaired glucose tolerance Peripheral vascular disease Surgical History History of back surgery History of back surgery History of colonoscopy History of varicose vein stripping History of right knee surgery History of elbow surgery History of removal of cyst History of carpal tunnel release Family History Father Lung cancer Brain cancer Mother No problems noted. Paternal Uncle Brain cancer Lung cancer Social History Housing: House Alcohol intake: current Alcohol intake frequency: 0-2 drinks per day Alcohol type: beer Comment: 2 drinks a day Patient Tobacco Use Status: Former Tobacco user Tobacco use type: Cigarette Years Smoked: quit 2004 e-Cigarette/Vaping Use: Never Used Second Hand Smoke Exposure: No service: No Current occupational status: retired Cognitive needs: No Hearing needs: No Vision needs: No Review of Systems Const Denies chills, Denies excessive sweating, Denies fever(s), Denies headache(s) and Denies night sweats Eyes Denies dry eyes, Denies irritation and Denies itchy eyes ENT Reports Normal hearing present, Denies headache(s), Denies nasal congestion, Denies nasal discharge, Denies post nasal drip and Denies sore throat Card Denies chest pain, Denies chest pain at rest, Denies chest pain with activity, Denies claudication, Denies leg edema, Denies orthopnea and Denies paroxysmal nocturnal dyspnea Resp Denies chest congestion, Denies excessive phlegm production, Denies pain on inspiration, Denies pain with cough and Denies stridor Musc Denies myalgias Neuro Reports Normal hearing present and Denies headache(s) Endo Denies excessive sweating Prosper/Lymph Denies lymphadenopathy Aller/Immun Denies itchy eyes Physical Exam Vital Signs: Last Vital Signs Pulse 56 01/04/24 10:28 BP 108/60 01/04/24 10:28 Pulse Ox 96 01/04/24 10:28 Oxygen Delivery Method Room Air 01/04/24 10:28 BMI result Body Mass Index 36.1 Const General: cooperative, healthy appearing, comfortable, no acute distress, well developed and alert Nutritional Appearance: obese Orientation/consciousness: patient oriented x3 Limitations: no limitations HEENT Head: Yes normal to inspection, Yes normocephalic and Yes atraumatic Ears: hearing grossly normal bilaterally and external ears normal Eyes General: appearance normal, both eyes and all related structures Eyelids: Yes eyelids normal Sclerae: sclerae normal EOM: EOMs intact bilaterally Neck Neck: Yes normal visual inspection and Yes no lymphadenopathy Lymphatic: no lymphadenopathy noted Chest Chest palpation & inspection: normal inspection of the chest Resp Effort & Inspection: normal respiratory effort, able to speak in complete sentences, no audible wheezes, no cough, no stridor, not tachypneic, no tripod positioning and no use of accessory muscles Auscultation: clear to auscultation bilaterally Cardio Jugular venous distension: no JVD Rate: regular rate Rhythm: regular rhythm Skin Other: warm, dry General skin exam: no rashes or lesions noted Neuro General: patient oriented x3 Cranial nerves: Yes Normal hearing present Cognition (Neuro): normal cognition Gait exam (Neuro): Normal gait present Extrem General: Yes normal to inspection, Yes capillary refill normal, Yes no clubbing, cyanosis or edema and Yes no pedal edema Psych Appearance: grossly normal and well kempt Speech and movement: Normal speech and movement present and Clear speech present Affect: normal affect Attitude: cooperative Thought process: Normal thought process present Thought content: Normal thought content present Insight: Good insight present (Psych) Judgement: Good judgement present (Psych) Assessment & Plan Assessment & Plan (1) Obstructive sleep apnea: Code(s): G47.33 - Obstructive sleep apnea (adult) (pediatric) Category: Medical (2) COPD (chronic obstructive pulmonary disease): Code(s): J44.9 - Chronic obstructive pulmonary disease, unspecified Category: Medical Qualifiers: COPD type: emphysema Emphysema type: panlobular Qualified Code(s): J43.1 - Panlobular emphysema (3) Nocturnal hypoxemia: Onset Date: ~10/2023 Code(s): G47.34 - Idiopathic sleep related nonobstructive alveolar hypoventilation Category: Medical (4) Dyspnea on exertion: Code(s): R06.09 - Other forms of dyspnea Category: Medical Plan Edward symptoms are likely related to underlying COPD, unclear severity, with possible allergic component. Will send for PFT to assess as well as RAST. Given smoking history and reported symptoms of cough dyspnea , will send for chest CT to assess for any underlying parenchymal condition. Will trial Wixela, as he reports frequent use of albuterol. Discussed importance of good oral hygiene to prevent thrush. All questions were answered and patient is in agreement of plan. Will follow-up to review results and response to inhaler, or sooner if needed. Orders: Orders Resp Allergy Profile Region I Today Z91.09 - Other allergy status, other than to drugs and biological substances Complete Blood Count Auto Diff Today Z91.09 - Other allergy status, other than to drugs and biological substances Immunoglobulin E Today Z91.09 - Other allergy status, other than to drugs and biological substances CT chest wo IV con Today G47.34 - Idiopathic sleep related nonobstructive alveolar hypoventilation, J43.1 - Panlobular emphysema, Z87.891 - Personal history of nicotine dependence PFT pulmonary function test Today J43.1 - Panlobular emphysema Medications: New fluticasone propion-salmeterol 250-50 mcg/dose (Wixela Inhub) 1 inh inhalation Q12H 60 ea 6RF Coding Level of Care Code New Pt Level 4 (44147) Diagnoses Obstructive sleep apnea G47.33 Panlobular emphysema J43.1 COPD type: emphysema Emphysema type: panlobular Nocturnal hypoxemia G47.34 Dyspnea on exertion R06.09
[2024-01-04 10:28] VITALS: BP 108/60; PULSE 56; O2SAT 96; BMI 36.1
== END 2024-01-04 11:18 | disposition home or self-care (01) ==
PROVIDERS: PCP Internal Medicine; Visit Provider Nurse Practitioner Family
DX: G47.33 Obstructive sleep apnea (adult) (pediatric) (principal); J43.1 Panlobular emphysema; G47.34 Idiopathic sleep related nonobstructive alveolar hypoventilation; R06.09 Other forms of dyspnea
CPT/HCPCS: 99204; 99214

== ENCOUNTER → 2024-01-04 10:18 | Outpatient (BNVA) | payer MEDICARE, SELFPAY | PROVIDERS: PCP Internal Medicine; Visit Provider Nurse Practitioner Family | DX: G47.33 Obstructive sleep apnea (adult) (pediatric) (principal); G47.34 Idiopathic sleep related nonobstructive alveolar hypoventilation; J43.1 Panlobular emphysema; R06.09 Other forms of dyspnea | CPT/HCPCS: 99202 ==

== ENCOUNTER 2024-01-04 11:26 | Outpatient (REF) | payer MEDICARE, SELFPAY ==
[2024-01-04 14:40] LABS: MANUAL DIFF FLAG NO
[2024-01-04 14:47] LABS: Basophils Percent Auto 0.6 % (0-2); Eosinophils Absolute Auto 0.2 X10*3/uL (0.0-0.4); Eosinophils Percent Auto 2.5 % (0-4); Hematocrit 40.2 % (42.0-52.0); Hemoglobin 13.6 g/dl (14.0-18.0); Imm Gran Abs Auto 0.05 X10*3/uL (0.00-0.03); Imm Gran Pct Auto 0.8 % (0.0-0.4); Lymphocytes Percent Auto 31.3 % (20-40); Mean Corpuscular HGB Conc 33.8 g/dl (31.0-36.0); Mean Corpuscular Volume 94.6 fL (80.0-98.0); Mean Platelet Volume 10.1 fL (9.4-12.4); Monocytes Absolute Auto 0.4 X10*3/uL (0.1-1.2); Neutrophils Absolute Auto 3.7 x10*3/uL (2.0-8.3); Neutrophils Percent Auto 58.8 % (45-73); Platelet Count 229 X10*3/uL (160-400); Red Blood Count 4.25 X10*6/uL (4.60-5.80); Red Cell Distribution Width 13.4 % (11.0-16.0); White Blood Count 6.3 X10*3/uL (4.8-10.8)
[2024-01-06 03:58] LABS: Class Alternaria alternata 0; Class Aspergillus fumigatus 0; Class Bermuda Grass 0; Class Birch 0; Class Cat Dander 0; Class Cladosporium herbarum 0; Class Cockroach 0; Class Common Ragweed 0; Class Cottonwood 0; Class Derm. pterony 0; Class Dermatophagoides farinae 0; Class Dog Dander 0; Class Elm 0; Class Maple Box Elder 0; Class Mountain Cedar 0; Class Mouse Urine Protein 0; Class Mugwort 0; Class Oak 0; Class Penicillium crysogenum 0; Class Rough Pigweed 0; Class Sheep Sorrel 0; Class Sycamore 0; Class Timothy Grass 0; Class Walnut Tree 0; Class White Ash 0; Class White Mulberry 0; D001 IgE D pteronyssinus <0.10 kU/L; D002 - IgE D farinae <0.10 kU/L; E001 - IgE Cat Dander <0.10 kU/L; E005 - IgE Dog Dander <0.10 kU/L; E072-IgE Mouse Urine <0.10 kU/L; G002 IgE Bermuda Grass <0.10 kU/L; G006 - IgE Timothy Grass <0.10 kU/L; I006-IgE Cockroach, German <0.10 kU/L; Immunoglobulin E 18 kU/L (<OR=114); M001 IgE Penicillium chrysogen <0.10 kU/L; M002 - IgE Cladosporium herbar <0.10 kU/L; M003 - IgE Aspergillus fumigat <0.10 kU/L; M006 - IgE Alternaria alternat <0.10 kU/L; T001 IgE Maple/Box Elder <0.10 kU/L; T003 IgE Common Silver Birch <0.10 kU/L; T006 - IgE Cedar, Mountain <0.10 kU/L; T007 - IgE Oak, White <0.10 kU/L; T008 IgE Elm, American <0.10 kU/L; T010 - IgE Walnut <0.10 kU/L; T011 - IgE Maple Leaf Sycamore <0.10 kU/L; T014 - IgE Cottonwood <0.10 kU/L; T015 - IgE Ash, White <0.10 kU/L; T070 - IgE White Mulberry <0.10 kU/L; W001 - IgE Ragweed, Short <0.10 kU/L; W006 - IgE Mugwort <0.10 kU/L; W014 IgE Pigweed, Common <0.10 kU/L; W018 IgE Sheep Sorrel <0.10 kU/L
== END 2024-01-04 11:27 | disposition home or self-care (01) ==
LOC: HO.WFDLDS 11:26
PROVIDERS: Visit Provider Nurse Practitioner Family
DX: Z91.09 Other allergy status, other than to drugs and biological substances (principal)
CPT/HCPCS: 36415; 82785; 85025; 86003

== ENCOUNTER 2024-01-11 07:47 | Outpatient (REF) | payer MEDICARE, SELFPAY ==
--- NOTE | 2024-01-11 07:50 | EEG_ITS ---
FINDINGS: Waking background activity consists of low-voltage fast frequency seen diffusely intermixed with muscle artifact anteriorly and low voltage intermittent 11 hertz posterior alpha frequency. Photic stimulation is without activation. Hyperventilation is omitted. No focal, lateralizing, or paroxysmal discharges are seen. IMPRESSION: This waking EEG is within normal limits. MD PORTIA Yu/AHMET / [phone]
== END 2024-01-11 07:48 | disposition home or self-care (01) ==
LOC: HO.NEURO 07:47
PROVIDERS: PCP Internal Medicine; Visit Provider Nurse Practitioner Family
DX: R25.9 Unspecified abnormal involuntary movements (principal)
CPT/HCPCS: 95816

== ENCOUNTER 2024-02-10 12:41 | Outpatient (AMB) | payer MEDICARE, SELFPAY ==
--- NOTE | 2024-02-10 12:42 | A.OFFPC_ITS ---
Vital Signs 02/10/24 12:43 Height 5 ft 11 in Weight 257 lb 2 oz BMI 35.9 BP 110/70 Blood Pressure Location Lt brachial Position Sitting Pulse 79 Pulse Source Pulse Oximeter Pulse Oximetry (%) 96 Oxygen Delivery Method Room Air Intake Visit Reasons: Hypertension Intake Note: Patient is here to follow up on HTN. Pt decline flu shot today. Manager Home Healthcare Required: No Internet Webmaster: Not Required per policy Accompanied by: Self / Same As Patient Allergies bacitracin Allergy (Intermediate, Verified 02/10/24 12:43) rash amlodipine Adverse Reaction (Intermediate, Uncoded 02/10/24 12:43) leg swelling Tobacco use date assessed: 02/10/24 Fall risk assessment: No Falls in past year Last assessed Fall Risk: 02/10/24 Dental Screening Dental Screen Date: 10/20/23 HPI Hypertension HPI Details 73-year-old obese male with history of i mpaired glucose tolerance gout COPD hypertension BPH lumbar degenerative disc disease bilateral knee osteoarthritis severe obstructive sleep apnea coming in for follow-up. Last seen in 10/20/2023. Patient's colonoscopy is up-to-date 2022. Patient follows up with Pulmonary January 04 2024 with this obstructive sleep apnea. Advised to get pulmonary function test. Patient was advised to get a CT scan of the chest also for smoking history. Placed on Wixela the inhaler has been helping as the patient has not been using the albuterol inhaler. Patient has an upcoming surgery for the knee next and April. CT scan was not approved by insurances. With the hydrochlorothiazide confusion clarification done. [facility] Medical History (Updated 02/10/24 @ 12:55 by Zaid Barrett MD) Obstructive sleep apnea Screening for colon cancer Hypersomnia COVID-19 virus infection Otitis media Impacted cerumen of left ear Cerumen impaction Preoperative clearance COVID-19 virus infection Fever and chills Cervical radiculopathy Thrombophlebitis leg superficial Lumbar degenerative disc disease Fatty liver Osteoarthritis Carpal tunnel syndrome BPH (benign prostatic hyperplasia) Vitamin D deficiency Hypertension Obesity (BMI 30-39.9) COPD (chronic obstructive pulmonary disease) Gout Impaired glucose tolerance Peripheral vascular disease Surgical History History of back surgery History of back surgery History of colonoscopy History of varicose vein stripping History of right knee surgery History of elbow surgery History of removal of cyst History of carpal tunnel release Family History Father Lung cancer Brain cancer Mother No problems noted. Paternal Uncle Brain cancer Lung cancer Social History Housing: House Alcohol intake: current Alcohol intake frequency: 0-2 drinks per day Alcohol type: beer Comment: 2 drinks a day Patient Tobacco Use Status: Former Tobacco user Tobacco use type: Cigarette Years Smoked: quit 2004 e-Cigarette/Vaping Use: Never Used Second Hand Smoke Exposure: No service: No Current occupational status: retired Cognitive needs: No Hearing needs: No Vision needs: No Questionnaire Thrive Questionnaire Date Thrive assessed: 08/10/23 ZACHARY-7 AMB Questionnaire ZACHARY-7 Date ZACHARY - 7 assessed: 06/23/23 Source: Developed by Drs. Abiel Perez, Ceci Foss, Leonel Ram and colleagues, with an educational niurka from [employer]. Physical exam (Primary Care) Vital Signs: Last Vital Signs Pulse 79 02/10/24 12:43 BP 110/70 02/10/24 12:43 Pulse Ox 96 02/10/24 12:43 Oxygen Delivery Method Room Air 02/10/24 12:43 BMI result Body Mass Index 35.9 Tobacco/Smoking Status: Tobacco use Status Tobacco use date assessed 02/10/24 02/10/24 12:48 Patient Tobacco Use Status Former Tobacco user 02/10/24 12:48 Tobacco use type Cigarette 02/10/24 12:48 e-Cigarette/Vaping Use Never Used 02/10/24 12:48 Thrive Assessment: Date of Thrive Assessment Date Thrive assessed 08/10/23 02/10/24 12:48 Const General: alert; No acute distress Eyes Conjunctivae: conjunctivae normal Resp Auscultation: clear to auscultation bilaterally Cardio Rate: regular rate Rhythm: regular rhythm GI Inspection: Yes normal to inspection Extrem General: Yes normal to inspection and No edema Coding Level of Care Code Est Pt Level 4 (67736) Complex EM visit Add On G2211 Diagnoses Personal history of tobacco use Z87.891 Severe obstructive sleep apnea G47.33 Spinal stenosis of lumbar region with neurogenic claudication M48.062 Neurogenic claudication status: with neurogenic claudication Primary osteoarthritis of knees, bilateral M17.0 Essential hypertension I10 Hypertension type: essential hypertension Obesity (BMI 30-39.9) E66.9 Panlobular emphysema J43.1 COPD type: emphysema Emphysema type: panlobular Impaired glucose tolerance R73.02 Assessment & Plan Assessment & Plan (1) Personal history of tobacco use: Code(s): Z87.891 - Personal history of nicotine dependence Category: Social Hx Plan: Patient is reminded about the CT scan of the chest- Insurance denied (2) Severe obstructive sleep apnea: Comment: Sleep titration study done January 2023 moderately severe obstructive sleep apnea with nocturnal hypoxemia. Bilevel pressure of 16/6 cms fullface mask large heated humidification Code(s): G47.33 - Obstructive sleep apnea (adult) (pediatric) Category: Medical Plan: Continue to use the CPAP more than 4 hours a night and benefits from this. Patient follows up with Neurology (3) Lumbar spinal stenosis: Comment: Dr. Borjas August 2020 L3 for laminotomy, decompression facetomy partial L3-L4 Code(s): M48.061 - Spinal stenosis, lumbar region without neurogenic claudication Category: Medical Qualifiers: Neurogenic claudication status: with neurogenic claudication Qualified Code(s): M48.062 - Spinal stenosis, lumbar region with neurogenic claudication Plan: Continues to keep active presently on meloxicam and tramadol (4) Primary osteoarthritis of knees, bilateral: Code(s): M17.0 - Bilateral primary osteoarthritis of knee Category: Medical Plan: Continue to keep active to lose the weight continue with tramadol as needed 05/01/2024, L knee 03/06/2024 (5) Hypertension: Code(s): I10 - Essential (primary) hypertension Category: Medical Qualifiers: Hypertension type: essential hypertension Qualified Code(s): I10 - Essential (primary) hypertension Plan: Continue with blood pressure medication. Decrease salt intake and exercise patient is on metoprolol 25 mg once a day hydrochlorothiazide 25 mg once a day, benazepril 40 mg once a day (6) Obesity (BMI 30-39.9): Code(s): E66.9 - Obesity, unspecified Category: Medical Plan: Diet and exercise (7) COPD (chronic obstructive pulmonary disease): Code(s): J44.9 - Chronic obstructive pulmonary disease, unspecified Category: Medical Qualifiers: COPD type: emphysema Emphysema type: panlobular Qualified Code(s): J43.1 - Panlobular emphysema Plan: Patient follows up with Pulmonary has been placed on Wixela. helping and not using the albuterol (8) Impaired glucose tolerance: Code(s): R73.02 - Impaired glucose tolerance (oral) Category: Medical Plan: Decrease the amount of carbohydrate intake, pasta, bread, rice and potatoes are all sugar and that is aside from all the sweet stuff, remember that fruits are good but they are Sweet also.
[2024-02-10 12:43] VITALS: BP 110/70; PULSE 79; O2SAT 96; BMI 35.9
== END 2024-02-10 13:12 | disposition home or self-care (01) ==
PROVIDERS: PCP Internal Medicine; Visit Provider Internal Medicine
DX: G47.33 Obstructive sleep apnea (adult) (pediatric) (principal); J43.1 Panlobular emphysema; Z87.891 Personal history of nicotine dependence; M48.062 Spinal stenosis, lumbar region with neurogenic claudication; M17.0 Bilateral primary osteoarthritis of knee; I10 Essential (primary) hypertension; E66.9 Obesity, unspecified; R73.02 Impaired glucose tolerance (oral)

== ENCOUNTER → 2024-02-10 12:41 | Outpatient (BNVA) | payer MEDICARE, SELFPAY | PROVIDERS: PCP Internal Medicine; Visit Provider Internal Medicine | DX: I10 Essential (primary) hypertension (principal); G47.33 Obstructive sleep apnea (adult) (pediatric); M48.062 Spinal stenosis, lumbar region with neurogenic claudication; M17.0 Bilateral primary osteoarthritis of knee; E66.9 Obesity, unspecified; J43.1 Panlobular emphysema; R73.02 Impaired glucose tolerance (oral); Z87.891 Personal history of nicotine dependence | CPT/HCPCS: 99212 ==

== ENCOUNTER 2024-02-14 07:55 | Outpatient (REF) | payer MEDICARE, SELFPAY ==
--- NOTE | 2024-02-14 08:02 | PFT_ITS ---
Flows: FEV1: 80 % of predicted at 2.50 L FVC: 117 % of predicted at 4.91 L FEV1/FVC: 51 % Bronchodilator response: Present in small to medium airways only Volumes: Total lung capacity: 95 % of predicted at 6.97 L Residual volume: 63 % of predicted at 1.73 L Slow vital capacity: 117 % of predicted at 5.24 L Expiratory reserve volume: 72 % of predicted at 0.93 L Diffusion capacity: Normal Impression: Mild obstructive ventilatory defect with bronchodilator response present in small to medium airways only. MTDD
== END 2024-02-14 07:56 | disposition home or self-care (01) ==
LOC: HO.RESP 07:55
PROVIDERS: PCP Internal Medicine; Visit Provider Nurse Practitioner Family
DX: J43.1 Panlobular emphysema (principal)
CPT/HCPCS: 94010; 94640; 94727; 94729

== ENCOUNTER → 2024-02-14 08:02 | Outpatient (BNV) | payer MEDICARE, SELFPAY | PROVIDERS: PCP Internal Medicine; Visit Provider Internal Medicine Pulmonary Disease | DX: J43.1 Panlobular emphysema (principal) | CPT/HCPCS: 94060; 94727; 94729 ==

== ENCOUNTER 2024-02-28 09:56 | Outpatient (AMB) | payer MEDICARE, SELFPAY ==
--- NOTE | 2024-02-28 10:16 | MHC.OFFVIS ---
Vital Signs 02/28/24 10:20 Height 5 ft 11 in Weight 257 lb 8 oz BMI 35.9 BP 132/70 Blood Pressure Location Rt brachial Position Sitting Pulse 59 Pulse Source Pulse Oximeter Pulse Oximetry (%) 96 Oxygen Delivery Method Room Air Intake Visit Reasons: Sleep apnea/pre-opclearance Allergies bacitracin Allergy (Intermediate, Verified 02/28/24 10:22) rash amlodipine Adverse Reaction (Intermediate, Uncoded 02/28/24 10:22) leg swelling HPI HPI Sleep apnea/pre-opclearance: Details: Keaton is a pleasant 73-year-old male, former smoker, quit 20 years ago with approximately 60 pack-year history, with underlying hypertension full and obstructive sleep apnea on CPAP therapy. He was referred by sleep medicine. He underwent home sleep study which revealed moderate to severe MONIQUE with an AHI 22, and nocturnal hypoxemia less than 80% for 136 minutes low as 72%. He underwent in lab titration study in January 2023 and was placed on BiPAP therapy with settings of 16/6. He continued with apneic events and was recently switched to CPAP mode with a pressure of 8 cm. This is being monitored through sleep medicine. However patient would benefit from overnight oximetry to assess resolution of nocturnal hypoxemia. Today he presents to review PFT results. He reports respiratory symptoms are quite mild using wixela inconsistently and albuterol infrequently. He denies any urgent care visits or hospitalizations since the last visit. [facility] Medical History (Updated 03/05/24 @ 15:32 by Xin Dodson NP) Obstructive sleep apnea Screening for colon cancer Hypersomnia COVID-19 virus infection Otitis media Impacted cerumen of left ear Cerumen impaction Preoperative clearance COVID-19 virus infection Fever and chills Cervical radiculopathy Thrombophlebitis leg superficial Lumbar degenerative disc disease Fatty liver Osteoarthritis Carpal tunnel syndrome BPH (benign prostatic hyperplasia) Vitamin D deficiency Hypertension Obesity (BMI 30-39.9) COPD (chronic obstructive pulmonary disease) Gout Impaired glucose tolerance Peripheral vascular disease Surgical History History of back surgery History of back surgery History of colonoscopy History of varicose vein stripping History of right knee surgery History of elbow surgery History of removal of cyst History of carpal tunnel release Family History Father Lung cancer Brain cancer Mother No problems noted. Paternal Uncle Brain cancer Lung cancer Social History Housing: House Alcohol intake: current Alcohol intake frequency: 0-2 drinks per day Alcohol type: beer Comment: 2 drinks a day Patient Tobacco Use Status: Former Tobacco user Tobacco use type: Cigarette Years Smoked: quit 2004 e-Cigarette/Vaping Use: Never Used Second Hand Smoke Exposure: No service: No Current occupational status: retired Cognitive needs: No Hearing needs: No Vision needs: No Review of Systems Const Denies chills, Denies excessive sweating, Denies fever(s), Denies headache(s) and Denies night sweats Eyes Denies dry eyes, Denies irritation and Denies itchy eyes ENT Reports Normal hearing present, Denies headache(s), Denies nasal congestion, Denies nasal discharge, Denies post nasal drip and Denies sore throat Card Denies chest pain, Denies chest pain at rest, Denies chest pain with activity, Denies claudication, Denies leg edema, Denies dyspnea, Denies dyspnea on exertion, Denies orthopnea and Denies paroxysmal nocturnal dyspnea Resp Denies chest congestion, Denies cough, Denies excessive phlegm production, Denies pain on inspiration, Denies pain with cough, Denies dyspnea, Denies dyspnea on exertion, Denies stridor and Denies wheezing Musc Denies myalgias Neuro Reports Normal hearing present and Denies headache(s) Endo Denies excessive sweating Prosper/Lymph Denies lymphadenopathy Aller/Immun Denies itchy eyes, Denies seasonal rhinorrhea and Denies wheezing Physical Exam Vital Signs: Last Vital Signs Pulse 59 02/28/24 10:20 BP 132/70 02/28/24 10:20 Pulse Ox 96 02/28/24 10:20 Oxygen Delivery Method Room Air 02/28/24 10:20 BMI result Body Mass Index 35.9 Const General: cooperative, healthy appearing, comfortable, no acute distress, well developed and alert Nutritional Appearance: obese Orientation/consciousness: patient oriented x3 Limitations: no limitations HEENT Head: Yes normal to inspection, Yes normocephalic and Yes atraumatic Ears: hearing grossly normal bilaterally and external ears normal Eyes General: appearance normal, both eyes and all related structures Eyelids: Yes eyelids normal Sclerae: sclerae normal EOM: EOMs intact bilaterally Neck Neck: Yes normal visual inspection and Yes no lymphadenopathy Lymphatic: no lymphadenopathy noted Chest Chest palpation & inspection: normal inspection of the chest Resp Effort & Inspection: normal respiratory effort, able to speak in complete sentences, no audible wheezes, no cough, no stridor, not tachypneic, no tripod positioning and no use of accessory muscles Auscultation: clear to auscultation bilaterally Cardio Jugular venous distension: no JVD Rate: regular rate Rhythm: regular rhythm Skin Other: warm, dry General skin exam: no rashes or lesions noted Neuro General: patient oriented x3 Cranial nerves: Yes Normal hearing present Cognition (Neuro): normal cognition Gait exam (Neuro): Normal gait present Extrem General: Yes normal to inspection, Yes capillary refill normal, Yes no clubbing, cyanosis or edema and Yes no pedal edema Psych Appearance: grossly normal and well kempt Speech and movement: Normal speech and movement present and Clear speech present Affect: normal affect Attitude: cooperative Thought process: Normal thought process present Thought content: Normal thought content present Insight: Good insight present (Psych) Judgement: Good judgement present (Psych) Assessment & Plan Assessment & Plan (1) Obstructive sleep apnea: Code(s): G47.33 - Obstructive sleep apnea (adult) (pediatric) Category: Medical (2) COPD (chronic obstructive pulmonary disease): Code(s): J44.9 - Chronic obstructive pulmonary disease, unspecified Category: Medical Qualifiers: COPD type: emphysema Emphysema type: panlobular Qualified Code(s): J43.1 - Panlobular emphysema (3) Nocturnal hypoxemia: Onset Date: ~10/2023 Code(s): G47.34 - Idiopathic sleep related nonobstructive alveolar hypoventilation Category: Medical (4) Dyspnea on exertion: Code(s): R06.09 - Other forms of dyspnea Category: Medical (5) Preop pulmonary/respiratory exam: Code(s): Z01.811 - Encounter for preprocedural respiratory examination Category: Medical Plan Reviewed PFT which revealed mild obstructive defect. Patient has been using wixela infrequently, advised to use consistently and will reassess effectiveness. CXR revealed bibasilar opacities which could be suggestive of LLL atelectasis and RLL bronchiectasis. At this time, patient would be considered low risk for preoperative pulmonary complications for proposed left knee replacement. Consider bronchodilators during the perioperative period. Will send for chest CT for further evaluation and overnight oximetry to assess for resolution of nocturnal hypoxemia. All questions were answered and patient is in agreement of plan. Will follow-up to review results and response to inhaler, or sooner if needed. Coding Level of Care Code Est Pt Level 4 (45429) Diagnoses Obstructive sleep apnea G47.33 Panlobular emphysema J43.1 COPD type: emphysema Emphysema type: panlobular Nocturnal hypoxemia G47.34 Dyspnea on exertion R06.09 Preop pulmonary/respiratory exam Z01.811
[2024-02-28 10:20] VITALS: BP 132/70; PULSE 59; O2SAT 96; BMI 35.9
== END 2024-02-28 11:09 | disposition home or self-care (01) ==
PROVIDERS: PCP Internal Medicine; Visit Provider Nurse Practitioner Family
DX: G47.33 Obstructive sleep apnea (adult) (pediatric) (principal); J43.1 Panlobular emphysema; G47.34 Idiopathic sleep related nonobstructive alveolar hypoventilation; R06.09 Other forms of dyspnea; Z01.811 Encounter for preprocedural respiratory examination
CPT/HCPCS: 99214

== ENCOUNTER 2024-02-28 09:56 | Outpatient (REF) | payer MEDICARE, SELFPAY ==
--- NOTE | ~2024-02-28 | XR_ITS ---
EXAMINATION: XR CHEST CLINICAL INFORMATION: R06.09 - Other forms of dyspnea. COMPARISON: 02/28/2024. TECHNIQUE: 2 views of the chest were obtained. FINDINGS: Advanced degenerative changes in the thoracic spine. Heart size is normal. There is no gross pneumothorax. Persistent moderate bibasilar opacities, left greater than right. Increased mild streaky opacities in the left costophrenic angle. Possible minimal trace bilateral pleural effusions. XR/XR chest 2V IMPRESSION: Persistent moderate bibasilar opacities, left greater than right. Increased mild streaky opacities in the left costophrenic angle. Possible minimal trace bilateral pleural effusions. This study was presented today February 29, 2024 for interpretation. Stat results provided at this time as requested by referring provider. Electronically signed by: Kira Corrigan MD 02/29/2024 05:58 AM ANABEL
== END 2024-02-28 09:57 | disposition home or self-care (01) ==
LOC: HO.XRAY 09:56
PROVIDERS: PCP Internal Medicine; Visit Provider Nurse Practitioner Family
DX: Z01.811 Encounter for preprocedural respiratory examination (principal); G47.33 Obstructive sleep apnea (adult) (pediatric); R06.09 Other forms of dyspnea; J43.1 Panlobular emphysema; G47.34 Idiopathic sleep related nonobstructive alveolar hypoventilation
CPT/HCPCS: 71046; 99212

== ENCOUNTER 2024-03-26 10:48 | Outpatient (AMB) | payer MEDICARE, SELFPAY ==
[2024-03-26 10:55] VITALS: BP 114/60; PULSE 82; O2SAT 100; BMI 35.9
--- NOTE | 2024-03-26 10:55 | A.OFFPC_ITS ---
Vital Signs 03/26/24 10:55 Height 5 ft 11 in Weight 257 lb 6 oz BMI 35.9 BP 114/60 Blood Pressure Location Lt brachial Position Sitting Pulse 82 Pulse Source Pulse Oximeter Pulse Oximetry (%) 100 Oxygen Delivery Method Room Air Intake Visit Reasons: [facility] 03/15 Knee surgery/ pneumonia Allergies bacitracin Allergy (Intermediate, Verified 03/26/24 10:59) rash amlodipine Adverse Reaction (Intermediate, Uncoded 03/26/24 10:59) leg swelling Medication List - Last Reconciled 03/26/24 by Meena Olivarez PA-C albuterol sulfate 90 mcg/actuation (ProAir HFA) 2 puffs inhalation Q4-6H PRN albuterol sulfate 2.5 mg (3 mL) inhalation Q4-6H PRN 30 days allopurinol 300 mg PO DAILY aspirin 325 mg PO DAILY benazepril 40 mg PO DAILY calcium polycarbophil (Fiber Laxative (calcium polycarbophil)) 1,250 mg (2 x 625 mg) PO DAILY 30 days cholecalciferol (vitamin D3) 50 mcg PO DAILY [CPAP Bilevel pressure of 16/6 cms fullface mask large heated humidification As directed Bilevel pressure of 16/6 cms fullface mask large heated humidification] docusate sodium (Colace) 200 mg (2 x 100 mg) PO BEDTIME finasteride 5 mg PO DAILY fluticasone propion-salmeterol 250-50 mcg/dose (Wixela Inhub) 1 inh inhalation Q12H hydrocortisone 2.5% (Proctozone-HC) 1 appl WA BID PRN metoprolol succinate ER 25 mg PO DAILY oxycodone-acetaminophen 5-325 mg (Percocet) 1 tab PO Q8H PRN pantoprazole 40 mg PO DAILY polyethylene glycol 3350 (Miralax) 17 grams PO DAILY tamsulosin 0.4 mg PO DAILY Tobacco use date assessed: 03/26/24 Fall risk assessment: No Falls in past year Last assessed Fall Risk: 03/26/24 Dental Screening Dental Screen Date: 03/26/24 Did you have a dental visit in the last 12 months?: Yes Did you have a dental problem in the last 6 months where you did not have access to dental care?: No Was dental information given to patient?: Patient has dentist HPI [facility] 03/15 Knee surgery/ pneumonia HPI Details 73-year-old male with past medical histo ry of impaired glucose tolerance, gout, COPD, hypertension, BPH, lumbar degenerative disc disease, bilateral knee osteoarthritis, severe obstructive sleep apnea last seen by Dr. Barrett February 2024 coming in for hospital discharge follow up. In review of the notes, patient underwent left total knee arthroscopy with Dr. Alcantara on 03/06/2024 and discharged on 03/07/2024. Initially patient was doing well but did present to the ER on 03/11/2024 with complaints of nausea and shortness of breath found to have multifocal pneumonia improved with antibiotics. Patient was advised to hold hydrochlorothiazide and continue on metoprolol and all other medications and follow up with sanjeev send 2 weeks discharged home 03/15/2024. Patient states since discharge from the hospital his shortness of breath has resolved and patient has been afebrile. He is no longer taking his hydrochlorothiazide as it was giving him cramps and causing him to be hypokalemic. He was advised to discontinue this while in the hospital and has not been taking it outpatient. He monitors his blood pressures at home and blood pressures have been within normal limits for him. He has been seeing physical therapy twice weekly for left total knee replacement. He does mentioned he has bruising on the left lower extremity that he is concerned about. Otherwise has no acute concerns today. [facility] Medical History Obstructive sleep apnea Screening for colon cancer Hypersomnia COVID-19 virus infection Otitis media Impacted cerumen of left ear Cerumen impaction Preoperative clearance COVID-19 virus infection Fever and chills Cervical radiculopathy Thrombophlebitis leg superficial Lumbar degenerative disc disease Fatty liver Osteoarthritis Carpal tunnel syndrome BPH (benign prostatic hyperplasia) Vitamin D deficiency Hypertension Obesity (BMI 30-39.9) COPD (chronic obstructive pulmonary disease) Gout Impaired glucose tolerance Peripheral vascular disease Surgical History History of back surgery History of back surgery History of colonoscopy History of varicose vein stripping History of right knee surgery History of elbow surgery History of removal of cyst History of carpal tunnel release Family History Father Lung cancer Brain cancer Mother No problems noted. Paternal Uncle Brain cancer Lung cancer Social History Housing: House Alcohol intake: current Alcohol intake frequency: 0-2 drinks per day Alcohol type: beer Comment: 2 drinks a day Patient Tobacco Use Status: Former Tobacco user Tobacco use type: Cigarette Years Smoked: quit 2004 e-Cigarette/Vaping Use: Never Used Second Hand Smoke Exposure: No service: No Current occupational status: retired Cognitive needs: No Hearing needs: No Vision needs: No Questionnaire PHQ-9 Over the last 2 weeks, how often have you been bothered by any of the following problems? 1. Little interest or pleasure in doing things: not at all 2. Feeling down, depressed, or hopeless: not at all 3. Trouble falling or staying asleep, or sleeping too much: not at all 4. Feeling tired or having little energy: several days 5. Poor appetite or overeating: not at all 6. Feeling bad about yourself - or that you are a failure or have let yourself or your family down: not at all 7. Trouble concentrating on things, such as reading the newspaper or watching television: not at all 8. Moving or speaking so slowly that other people could have noticed. Or the opposite - being so fidgety or restless that you have been moving around a lot more than usual: not at all 9. Thoughts that you would be better off or of hurting yourself in some way: not at all Total score: 1 Depression Screening Interpretation: Positive Depression Screening Done: Yes 67911 - PHQ-9 Billing: Yes Source: Developed by Drs. Abiel Perez, Ceci Foss, Leonel Ram and colleagues, with an educational niurka from [email or web address]. Thrive Questionnaire Date Thrive assessed: 03/26/24 I am a: Patient What is your living situation today?: I have a steady place to live Within the past 12 months, did the food you bought not last and you didn't have the money to get more?: Never true Within the past 12 months, did you worry whether your food would run out before you got money to buy more?: Never true Do you have trouble paying for medicines?: No Do you have trouble getting transportation to medical appointments?: No Do you have trouble paying your heating and electricity bill?: No Do you have trouble taking care of your child, family member or friend?: No Do you have trouble with day-to-day activities such as bathing, preparing meals, shopping, managing finances, etc.?: No Are you currently unemployed and looking for a job?: No Are you interested in more education?: No THRIVE Score: 0 AUDIT C Alcohol Use Questionnaire (AUDIT-C) 1. How often do you have a drink containing alcohol?: 2-3 times a week 2. How many drinks containing alcohol do you have on a typical day when you are drinking?: 1 or 2 3. How often do you have six or more drinks on one occasion?: Never Total Score: 3 Score Reviewed/Action Taken: No ZACHARY-7 AMB Questionnaire ZACHARY-7 Date ZACHARY - 7 assessed: 03/26/24 Feeling nervous, anxious, or on edge: 0 = Not at all Not being able to stop or control worryin = Not at all Worrying too much about different things: 0 = Not at all Trouble relaxin = Not at all Being so restless that it is hard to sit still: 0 = Not at all Becoming easily annoyed or irritable: 0 = Not at all Feeling afraid as if something awful might happen: 0 = Not at all Total ZACHARY-7 score (0-4 normal; 5-9 mild; 10-14 moderate; 15-21 severe): 0 Source: Developed by Drs. Abiel Perez, Ceci Foss, Leonel Ram and colleagues, with an educational niurka from [email or web address]. ZACHARY-7 Assessment Billing ZACHARY-7 Assessment Tool: ZACHARY-7 Assessment 45541 Review of Systems Const Denies body aches, Denies chills, Denies fever(s) and Denies poor appetite Card Denies chest pain, Denies syncope, Denies edema, Denies irregular heart rhythm, Denies lightheadedness and Denies dyspnea Resp Denies cough and Denies dyspnea GI Denies abdominal pain, Denies constipation, Denies diarrhea, Denies nausea and Denies vomiting Reports no additional complaints Musc Reports no additional complaints Skin/Breast Reports system reviewed and no additional complaints, except as documented Neuro Denies syncope Psych Reports no additional complaints Physical exam (Primary Care) Vital Signs: Last Vital Signs Pulse 82 03/26/24 10:55 BP 114/60 03/26/24 10:55 Pulse Ox 100 03/26/24 10:55 Oxygen Delivery Method Room Air 03/26/24 10:55 BMI result Body Mass Index 35.9 Tobacco/Smoking Status: Tobacco use Status Tobacco use date assessed 03/26/24 03/26/24 11:03 Patient Tobacco Use Status Former Tobacco user 03/26/24 11:03 Tobacco use type Cigarette 03/26/24 11:03 e-Cigarette/Vaping Use Never Used 03/26/24 11:03 PHQ-9: PHQ-9 Score PHQ-9: Total score 1 03/26/24 11:03 Depression Screening Interpretation: Positive Thrive Assessment: Date of Thrive Assessment Date Thrive assessed 03/26/24 03/26/24 11:03 Const General: cooperative, healthy appearing, comfortable and no acute distress Orientation/consciousness: patient oriented x3 HENMT Head: Yes normocephalic Ears: hearing grossly normal bilaterally General nose exam: Normal external nose present Eyes General: appearance normal, both eyes and all related structures Conjunctivae: conjunctivae normal Neck Neck: Yes full ROM and Yes no lymphadenopathy Resp Effort & Inspection: normal respiratory effort Auscultation: clear to auscultation bilaterally, no crackles, no rales, no rhonchi and no wheezes Cardio Rate: regular rate Rhythm: regular rhythm Skin General skin exam: no rashes or lesions noted Neuro General: patient oriented x3 Gait exam (Neuro): Normal gait present Extrem Other: Bruising on the medial aspect of the left lower leg without erythema, warmth or swelling. General: Yes normal to inspection, Yes full ROM and No edema Psych Affect: normal affect Attitude: cooperative Insight: Good insight present (Psych) Judgement: Good judgement present (Psych) Coding Level of Care Code Est Pt Level 4 (64263) Diagnoses Panlobular emphysema J43.1 COPD type: emphysema Emphysema type: panlobular Impaired glucose tolerance R73.02 Essential hypertension I10 Hypertension type: essential hypertension Obesity (BMI 30-39.9) E66.9 Bilateral primary osteoarthritis of knee M17.0 Additional Codes ZACHARY-7 Assessment Billing - ZACHARY-7 Assessment Tool: ZACHARY-7 Assessment 23595 ([id number]) PHQ-9 - 65734 - PHQ-9 Billing: Yes ([id number]) Assessment & Plan Assessment & Plan (1) COPD (chronic obstructive pulmonary disease): Code(s): J44.9 - Chronic obstructive pulmonary disease, unspecified Category: Medical Qualifiers: COPD type: emphysema Emphysema type: panlobular Qualified Code(s): J43.1 - Panlobular emphysema Plan: Currently on Wixela and albuterol as needed. Feels his breathing is well managed at this time. Completed his antibiotics for pneumonia is no longer having shortness of breath. (2) Impaired glucose tolerance: Code(s): R73.02 - Impaired glucose tolerance (oral) Category: Medical Plan: Decrease the amount of carbohydrates such as pasta, bread, rice, and potatoes and limit the amount of sweets. Although fruits are generally healthy they should be eaten in moderation as they are still high in sugar. (3) Hypertension: Code(s): I10 - Essential (primary) hypertension Category: Medical Qualifiers: Hypertension type: essential hypertension Qualified Code(s): I10 - Essential (primary) hypertension Plan: Continue on current blood pressure medication. Avoid salt intake and encourage healthy diet and regular exercise. No longer taking his hydrochlorothiazide blood pressure at goal today 114/60. Advised patient to continue taking blood pressures at home and if they rise above 140/90 to reach out to the office. (4) Obesity (BMI 30-39.9): Code(s): E66.9 - Obesity, unspecified Category: Medical Plan: Healthy diet and regular exercise is encouraged. (5) Bilateral primary osteoarthritis of knee: Code(s): M17.0 - Bilateral primary osteoarthritis of knee Category: Medical Plan: Patient recently underwent left total knee replacement with Dr. Alcantara through [facility] surgeons. He has been doing well postoperatively and was seen for his 1st postop checkup no concerns from the surgeon at that time. Continue to follow with physical therapy. patient is scheduled to have right total knee replacement with [facility] in April. Advised to follow up as needed for this concern. Patient does have mild swelling bruising on left lower extremity that was evaluated by myself and appears to be routine healing with no evidence of infection. Advised to continue to monitor symptoms and reviewed red flag symptoms and when to present for re-evaluation Plan This note was constructed using voice recognition software. While every effort has been made to ensure accuracy and machinist 2nd shift, still areas may have been included sometimes these areas may affect the content or meeting of the given symptoms. Total time spent caring for the patient today was 30 minutes. This includes time spent before the visit reviewing the chart, time spent during the visit, and time spent after the visit and documentation. Medications: Discontinued hydrochlorothiazide Discontinued Reason: Patient no longer taking 25 mg PO DAILY 90 tabs 3RF I10 - Essential (primary) hypertension
== END 2024-03-26 11:29 | disposition home or self-care (01) ==
PROVIDERS: PCP Internal Medicine
DX: J43.1 Panlobular emphysema (principal); E66.812 Obesity, class 2; Z68.35 Body mass index [BMI] 35.0-35.9, adult; R73.02 Impaired glucose tolerance (oral); I10 Essential (primary) hypertension; M17.0 Bilateral primary osteoarthritis of knee

== ENCOUNTER → 2024-03-26 10:48 | Outpatient (BNVA) | payer MEDICARE, SELFPAY | PROVIDERS: PCP Internal Medicine | DX: I10 Essential (primary) hypertension (principal); N40.0 Benign prostatic hyperplasia without lower urinary tract symptoms; J43.1 Panlobular emphysema; M51.369 Other intervertebral disc degeneration, lumbar region without mention of lumbar back pain or lower extremity pain; M17.0 Bilateral primary osteoarthritis of knee; G47.33 Obstructive sleep apnea (adult) (pediatric); R73.02 Impaired glucose tolerance (oral); E66.9 Obesity, unspecified; Z68.35 Body mass index [BMI] 35.0-35.9, adult | CPT/HCPCS: 96127; 99212 ==

== ENCOUNTER 2024-05-29 08:29 | Outpatient (AMB) | payer MEDICARE, SELFPAY ==
--- NOTE | 2024-05-29 08:21 | MHC.OFFVIS ---
Vital Signs 05/29/24 08:40 Height 5 ft 11 in Weight 260 lb BMI 36.3 BP 144/68 H Blood Pressure Location Rt brachial Position Sitting Pulse 96 Pulse Source Pulse Oximeter Pulse Oximetry (%) 96 Oxygen Delivery Method Room Air Intake Visit Reasons: Sleep apnea Learning Designer Required: No Superintendent Sanitation: Superintendent Sanitation offered & declined Accompanied by: Self / Same As Patient Allergies bacitracin Allergy (Intermediate, Verified 05/29/24 08:47) rash amlodipine Adverse Reaction (Intermediate, Uncoded 05/29/24 08:47) leg swelling Medication List - Last Reconciled 05/29/24 by Iliana Pitt LPN albuterol sulfate 90 mcg/actuation (ProAir HFA) 2 puffs inhalation Q4-6H PRN albuterol sulfate 2.5 mg (3 mL) inhalation Q4-6H PRN 30 days allopurinol 300 mg PO DAILY apixaban (Eliquis) 5 mg PO BID aspirin 325 mg PO DAILY benazepril 40 mg PO DAILY calcium polycarbophil (Fiber Laxative (calcium polycarbophil)) 1,250 mg (2 x 625 mg) PO DAILY 30 days cholecalciferol (vitamin D3) 50 mcg PO DAILY [CPAP Bilevel pressure of 16/6 cms fullface mask large heated humidification As directed Bilevel pressure of 16/6 cms fullface mask large heated humidification] docusate sodium (Colace) 200 mg (2 x 100 mg) PO BEDTIME finasteride 5 mg PO DAILY fluticasone propion-salmeterol 250-50 mcg/dose (Wixela Inhub) 1 inh inhalation Q12H furosemide 20 mg PO DAILY hydrocortisone 2.5% (Proctozone-HC) 1 appl [place] BID PRN metoprolol succinate ER 25 mg PO DAILY oxycodone-acetaminophen 5-325 mg (Percocet) 1 tab PO Q8H PRN pantoprazole 40 mg PO DAILY polyethylene glycol 3350 (Miralax) 17 grams PO DAILY tamsulosin 0.4 mg PO DAILY HPI HPI Sleep apnea: Details: Keaton is a pleasant 74-year-old male, former smoker, quit 20 years ago with approximately 60 pack-year history, with underlying hypertension and obstructive sleep apnea on CPAP therapy monitored by sleep medicine. He is prescribed Wixela 250 mcg using 1 inhalation daily often misses the second dose, with moderate effect. He reports overall improvements in dyspnea especially since initiating lasix. He underwent bilateral total knee replacements, in February 2024 and April 2024 found to have new onset CHF, atrial fibrillation and developed LLL/GAVIN pneumonia. He has since completed abx with resolution of symptoms, underwent cardioversion andhas been started on eliquis as well as lasix, now under the care of [facility] cardiology. Recommendations from CTA, negative for PE, was to repeat imaging to assess resolution of PNA. [facility] Medical History Obstructive sleep apnea Screening for colon cancer Hypersomnia COVID-19 virus infection Otitis media Impacted cerumen of left ear Cerumen impaction Preoperative clearance COVID-19 virus infection Fever and chills Cervical radiculopathy Thrombophlebitis leg superficial Lumbar degenerative disc disease Fatty liver Osteoarthritis Carpal tunnel syndrome BPH (benign prostatic hyperplasia) Vitamin D deficiency Hypertension Obesity (BMI 30-39.9) COPD (chronic obstructive pulmonary disease) Gout Impaired glucose tolerance Peripheral vascular disease Surgical History History of back surgery History of back surgery History of colonoscopy History of varicose vein stripping History of right knee surgery History of elbow surgery History of removal of cyst History of carpal tunnel release Family History Father Lung cancer Brain cancer Mother No problems noted. Paternal Uncle Brain cancer Lung cancer Social History Housing: House Alcohol intake: current Alcohol intake frequency: 0-2 drinks per day Alcohol type: beer Comment: 2 drinks a day Patient Tobacco Use Status: Former Tobacco user Tobacco use type: Cigarette Years Smoked: quit 2004 e-Cigarette/Vaping Use: Never Used Second Hand Smoke Exposure: No service: No Current occupational status: retired Cognitive needs: No Hearing needs: No Vision needs: No Review of Systems Const Denies chills, Denies excessive sweating, Denies fever(s), Denies headache(s) and Denies night sweats Eyes Denies dry eyes, Denies irritation and Denies itchy eyes ENT Reports Normal hearing present, Denies headache(s), Denies nasal congestion, Denies nasal discharge, Denies post nasal drip and Denies sore throat Card Denies chest pain, Denies chest pain at rest, Denies chest pain with activity, Denies claudication, Denies leg edema, Denies orthopnea and Denies paroxysmal nocturnal dyspnea Resp Denies chest congestion, Denies cough, Denies excessive phlegm production, Denies pain on inspiration, Denies pain with cough, Denies stridor and Denies wheezing Musc Denies myalgias Neuro Reports Normal hearing present and Denies headache(s) Endo Denies excessive sweating Prosper/Lymph Denies lymphadenopathy Aller/Immun Denies itchy eyes, Denies seasonal rhinorrhea and Denies wheezing Physical Exam Vital Signs: Last Vital Signs Pulse 96 05/29/24 08:40 BP 144/68 H 05/29/24 08:40 Pulse Ox 96 05/29/24 08:40 Oxygen Delivery Method Room Air 05/29/24 08:40 BMI result Body Mass Index 36.3 Const General: cooperative, healthy appearing, comfortable, no acute distress, well developed and alert Nutritional Appearance: obese Orientation/consciousness: patient oriented x3 Limitations: no limitations HEENT Head: Yes normal to inspection, Yes normocephalic and Yes atraumatic Ears: hearing grossly normal bilaterally and external ears normal Eyes General: appearance normal, both eyes and all related structures Eyelids: Yes eyelids normal Sclerae: sclerae normal EOM: EOMs intact bilaterally Neck Neck: Yes normal visual inspection and Yes no lymphadenopathy Lymphatic: no lymphadenopathy noted Chest Chest palpation & inspection: normal inspection of the chest Resp Effort & Inspection: normal respiratory effort, able to speak in complete sentences, no audible wheezes, no cough, no stridor, not tachypneic, no tripod positioning and no use of accessory muscles Auscultation: clear to auscultation bilaterally Cardio Jugular venous distension: no JVD Rate: regular rate Rhythm: regular rhythm Skin Other: warm, dry General skin exam: no rashes or lesions noted Neuro General: patient oriented x3 Cranial nerves: Yes Normal hearing present Cognition (Neuro): normal cognition Gait exam (Neuro): Normal gait present Extrem General: Yes normal to inspection, Yes capillary refill normal, Yes no clubbing, cyanosis or edema and Yes no pedal edema Psych Appearance: grossly normal and well kempt Speech and movement: Normal speech and movement present and Clear speech present Affect: normal affect Attitude: cooperative Thought process: Normal thought process present Thought content: Normal thought content present Insight: Good insight present (Psych) Judgement: Good judgement present (Psych) Results Reviewed Results Reviewed: RESULT: CT Angio Chest EXAMINATION: CT Angio Chest INDICATION: Tachycardia, low blood pressure, that is post recent knee surgery total knee replacement; Reason: PE suspected, Intermediate prob, positive D-dimer; Clinical Question(s): Pulmonary Embolism. TECHNIQUE: Spiral CTA of the chest was performed after rapid IV contrast administration without cardiac gating, triggered by an GINO on the main pulmonary artery. Images are formatted in multiple planes using 2-D multiplanar and 3-D maximum intensity projection. 100 cc of Isovue 300 was administered intravenously. This study was performed without oral contrast. Weight-based protocol using automatic tube modulation was used to optimize exposure parameters. CTDIvol Body: 9.00 mGy, DLP Body: 852 mGy*cm. COMPARISONS: 03/11/2024. ANGIOGRAPHIC FINDINGS: Evaluation is severely limited by incomplete opacification of the pulmonary arteries with contrast; however, no obvious main artery pulmonary embolism. Normal caliber pulmonary arteries. No acute aortic abnormality seen on this study performed without cardiac gating. NON-ANGIOGRAPHIC FINDINGS: Agricultural Education Instructor View Findings, Lines and Tubes: None. Trachea and Airways: Patent -- Low attention lesion or secretions anterior in the trachea, at series 501 image 20 -- Lungs and Pleura: Patchy and streaky consolidative opacities within the inferior left upper lobe and throughout the left lower lobe, significantly improved since prior. Bilateral scattered small calcified granulomas. Bibasilar atelectasis. No effusion or pneumothorax. Mediastinum and aida: No mass or hematoma. No mediastinal or hilar lymphadenopathy. No esophageal abnormality. Partially imaged thyroid is unremarkable. Heart: Heart is normal in size. No pericardial effusion. Moderate coronary artery calcification. Chest Wall Soft Tissues: Normal. Diaphragm and upper abdomen: No significant abnormality. Bones: No acute abnormality. IMPRESSION: Evaluation is severely limited by incomplete opacification of the pulmonary arteries with contrast; however, no obvious main artery pulmonary embolism. Ground glass and focal consolidative opacities within the inferior left upper lobe and throughout the left lower lobe, significantly improved since prior imaging on 03/11/2024. Recommend follow up to resolution. Small rounded non dependant opacity at the upper trachea. This is low in attention and can represent adherent secretion. This can also be observed on follow up exam. I have personally reviewed the images and I agree with this report. WSN: [id number] Ordering Physician: Lisa Moran Reason For Exam PE suspected, Intermediate prob, positive D-dimer,;Other: Signature Line Dictated By: Don Casey MD Dictated Date/Time: 05/05/24 7:22 am Reviewed By: Prachi Fontanez MD Signed By: Prachi Fontanez MD Signed Date/Time: 05/05/24 7:27 am Transcribed By: ORLY Transcribed Date/Time: 05/05/24 2:22 am Assessment & Plan Assessment & Plan (1) COPD (chronic obstructive pulmonary disease): Code(s): J44.9 - Chronic obstructive pulmonary disease, unspecified Category: Medical Qualifiers: COPD type: emphysema Emphysema type: panlobular Qualified Code(s): J43.1 - Panlobular emphysema (2) Nocturnal hypoxemia: Onset Date: ~10/2023 Code(s): G47.34 - Idiopathic sleep related nonobstructive alveolar hypoventilation Category: Medical (3) Dyspnea on exertion: Code(s): R06.09 - Other forms of dyspnea Category: Medical (4) History of recent pneumonia: Code(s): Z87.01 - Personal history of pneumonia (recurrent) Category: Medical Plan Encouraged patient to use Wixela BID, as prescribed. Reviewed CPAP compliance report, which revealed AHI 1.1 with minimal leaking since neurology switched CPAP pressures to 8cm. He is aware he needs to be more compliant with therapy although having difficulties sleeping due to discomfort s/p total knee replacement. He reports symptoms resolved from pneumonia, will repeat chest CT to assess for resolution. All questions were answered and patient is in agreement of plan. Will follow-up to review results or sooner if needed. Orders: Orders CT chest wo IV con 8 Weeks Z87.01 - Personal history of pneumonia (recurrent) Coding Level of Care Code Est Pt Level 4 (20488) Diagnoses Panlobular emphysema J43.1 COPD type: emphysema Emphysema type: panlobular Nocturnal hypoxemia G47.34 Dyspnea on exertion R06.09 History of recent pneumonia Z87.01
[2024-05-29 08:40] VITALS: BP 144/68; PULSE 96; O2SAT 96; BMI 36.3
== END 2024-05-29 09:06 | disposition home or self-care (01) ==
PROVIDERS: PCP Internal Medicine; Visit Provider Nurse Practitioner Family
DX: J43.1 Panlobular emphysema (principal); G47.34 Idiopathic sleep related nonobstructive alveolar hypoventilation; R06.09 Other forms of dyspnea; Z87.01 Personal history of pneumonia (recurrent)
CPT/HCPCS: 99214

== ENCOUNTER → 2024-05-29 08:29 | Outpatient (BNVA) | payer MEDICARE, SELFPAY | PROVIDERS: PCP Internal Medicine; Visit Provider Nurse Practitioner Family | DX: M17.11 Unilateral primary osteoarthritis, right knee (principal); I48.91 Unspecified atrial fibrillation; R73.02 Impaired glucose tolerance (oral); M1A.9XX0 Chronic gout, unspecified, without tophus (tophi); J43.1 Panlobular emphysema; E66.9 Obesity, unspecified; I10 Essential (primary) hypertension; N40.1 Benign prostatic hyperplasia with lower urinary tract symptoms; R35.0 Frequency of micturition; M51.369 Other intervertebral disc degeneration, lumbar region without mention of lumbar back pain or lower extremity pain; E78.00 Pure hypercholesterolemia, unspecified; G47.33 Obstructive sleep apnea (adult) (pediatric); G47.34 Idiopathic sleep related nonobstructive alveolar hypoventilation; R06.09 Other forms of dyspnea; Z87.01 Personal history of pneumonia (recurrent); Z99.89 Dependence on other enabling machines and devices; Z87.891 Personal history of nicotine dependence; Z79.899 Other long term (current) drug therapy; Z68.36 Body mass index [BMI] 36.0-36.9, adult | CPT/HCPCS: 96127; 99212 ==

== ENCOUNTER 2024-05-29 09:45 | Outpatient (AMB) | payer MEDICARE, SELFPAY ==
[2024-05-29 10:07] VITALS: BP 132/66; PULSE 73; TEMP 36.1; O2SAT 98; BMI 36.8
--- NOTE | 2024-05-29 10:07 | MHC.PC.OV ---
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 Required: No Accompanied by: Self / Same As Patient Allergies bacitracin Allergy (Intermediate, Verified 05/29/24 10:07) rash amlodipine Adverse Reaction (Intermediate, Uncoded 05/29/24 10:07) leg swelling Tobacco use date assessed: 05/29/24 Fall risk assessment: No Falls in past year Last assessed Fall Risk: 05/29/24 Dental Screening Dental Screen Date: 05/29/24 Did you have a dental visit in the last 12 months?: Yes Did you have a dental problem in the last 6 months where you did not have access to dental care?: No Was dental information given to patient?: Patient has dentist [facility] Medical History (Updated 05/29/24 @ 10:37 by Zaid Barrett MD) Obstructive sleep apnea Screening for colon cancer Hypersomnia COVID-19 virus infection Otitis media Impacted cerumen of left ear Cerumen impaction Preoperative clearance COVID-19 virus infection Fever and chills Cervical radiculopathy Thrombophlebitis leg superficial Lumbar degenerative disc disease Fatty liver Osteoarthritis Carpal tunnel syndrome BPH (benign prostatic hyperplasia) Vitamin D deficiency Hypertension Obesity (BMI 30-39.9) COPD (chronic obstructive pulmonary disease) Gout Impaired glucose tolerance Peripheral vascular disease Surgical History (Updated 05/29/24 @ 10:15 by MINE Borrero) History of total knee replacement History of back surgery History of back surgery History of colonoscopy History of varicose vein stripping History of right knee surgery History of elbow surgery History of removal of cyst History of carpal tunnel release Family History Father Lung cancer Brain cancer Mother No problems noted. Paternal Uncle Brain cancer Lung cancer Social History Housing: House Alcohol intake: current Alcohol intake frequency: 0-2 drinks per day Alcohol type: beer Comment: 2 drinks a day Patient Tobacco Use Status: Former Tobacco user Tobacco use type: Cigarette Years Smoked: quit 2004 e-Cigarette/Vaping Use: Never Used Second Hand Smoke Exposure: No service: No Current occupational status: retired Cognitive needs: No Hearing needs: No Vision needs: No Questionnaire PHQ-9 Over the last 2 weeks, how often have you been bothered by any of the following problems? 1. Little interest or pleasure in doing things: not at all 2. Feeling down, depressed, or hopeless: not at all 3. Trouble falling or staying asleep, or sleeping too much: not at all 4. Feeling tired or having little energy: several days 5. Poor appetite or overeating: not at all 6. Feeling bad about yourself - or that you are a failure or have let yourself or your family down: not at all 7. Trouble concentrating on things, such as reading the newspaper or watching television: not at all 8. Moving or speaking so slowly that other people could have noticed. Or the opposite - being so fidgety or restless that you have been moving around a lot more than usual: not at all 9. Thoughts that you would be better off or of hurting yourself in some way: not at all Total score: 1 Depression Screening Interpretation: Positive Depression Screening Done: Yes 67034 - PHQ-9 Billing: Yes Source: Developed by Drs. Abiel Perez, Ceci Foss, Leonel Ram and colleagues, with an educational niurka from [employer]. Thrive Questionnaire Date Thrive assessed: 05/29/24 I am a: Patient What is your living situation today?: I have a steady place to live Within the past 12 months, did the food you bought not last and you didn't have the money to get more?: Never true Within the past 12 months, did you worry whether your food would run out before you got money to buy more?: Never true Do you have trouble paying for medicines?: No Do you have trouble getting transportation to medical appointments?: No Do you have trouble paying your heating and electricity bill?: No Do you have trouble taking care of your child, family member or friend?: No Do you have trouble with day-to-day activities such as bathing, preparing meals, shopping, managing finances, etc.?: No Are you currently unemployed and looking for a job?: No Are you interested in more education?: No Please select the resources that you would like help with: None Currently or been in a relationship where the following occur: No concerns reported THRIVE Score: 0 AUDIT C Alcohol Use Questionnaire (AUDIT-C) 1. How often do you have a drink containing alcohol?: 2-3 times a week 2. How many drinks containing alcohol do you have on a typical day when you are drinking?: 1 or 2 3. How often do you have six or more drinks on one occasion?: Never Total Score: 3 Score Reviewed/Action Taken: No ZACHARY-7 AMB Questionnaire ZACHARY-7 Date ZACHARY - 7 assessed: 05/29/24 Feeling nervous, anxious, or on edge: 0 = Not at all Not being able to stop or control worryin = Not at all Worrying too much about different things: 0 = Not at all Trouble relaxin = Not at all Being so restless that it is hard to sit still: 0 = Not at all Becoming easily annoyed or irritable: 0 = Not at all Feeling afraid as if something awful might happen: 0 = Not at all Total ZACHARY-7 score (0-4 normal; 5-9 mild; 10-14 moderate; 15-21 severe): 0 Source: Developed by Drs. Abiel Perez, Ceci Foss, Leonel Ram and colleagues, with an educational niurka from [employer]. ZACHARY-7 Assessment Billing ZACHARY-7 Assessment Tool: ZACHARY-7 Assessment 98354 Physical exam (Primary Care) Vital Signs: Last Vital Signs Temp 96.9 F 05/29/24 10:07 Pulse 73 05/29/24 10:07 BP 132/66 05/29/24 10:07 Pulse Ox 98 05/29/24 10:07 Oxygen Delivery Method Room Air 05/29/24 10:07 BMI result Body Mass Index 36.8 Tobacco/Smoking Status: Tobacco use Status Tobacco use date assessed 05/29/24 05/29/24 10:08 Patient Tobacco Use Status Former Tobacco user 05/29/24 10:08 Tobacco use type Cigarette 05/29/24 10:08 e-Cigarette/Vaping Use Never Used 05/29/24 10:08 PHQ-9: PHQ-9 Score PHQ-9: Total score 1 05/29/24 10:36 Depression Screening Interpretation: Positive Thrive Assessment: Date of Thrive Assessment Date Thrive assessed 05/29/24 05/29/24 10:08 Currently or been in a relationship where the following occur: No concerns reported Const General: alert; No acute distress Eyes Conjunctivae: conjunctivae normal Resp Auscultation: clear to auscultation bilaterally Cardio Rate: regular rate Rhythm: regular rhythm GI Inspection: Yes normal to inspection Extrem General: Yes normal to inspection and No edema Coding Level of Care Code Est Pt Level 4 (08871) Complex EM visit Add On G2211 Diagnoses Atrial fibrillation I48.91 Bilateral primary osteoarthritis of knee M17.0 Impaired glucose tolerance R73.02 Chronic gout without tophus, unspecified cause, unspecified site [id number] Chronicity: chronic Gout etiology: unspecified cause Gout site: unspecified site Presence of tophus: without tophus Panlobular emphysema J43.1 COPD type: emphysema Emphysema type: panlobular Obesity (BMI 30-39.9) E66.9 Essential hypertension I10 Hypertension type: essential hypertension Benign prostatic hyperplasia with urinary frequency N40.1; R35.0 Lower urinary tract symptom detail: urinary frequency Lower urinary tract symptom presence: symptoms present Lumbar degenerative disc disease M51.36 Additional Codes ZACHARY-7 Assessment Billing - ZACHARY-7 Assessment Tool: ZACHARY-7 Assessment [id number] ([id number]) PHQ-9 - 96380 - PHQ-9 Billing: Yes ([id number]) Assessment & Plan Assessment & Plan (1) Atrial fibrillation: Code(s): I48.91 - Unspecified atrial fibrillation Category: Medical (2) Bilateral primary osteoarthritis of knee: Comment: Arthroplasty Dr. Alcantara April 2024 right Code(s): M17.0 - Bilateral primary osteoarthritis of knee Category: Medical Plan: Status post arthroplasty right knee (3) Impaired glucose tolerance: Code(s): R73.02 - Impaired glucose tolerance (oral) Category: Medical Plan: Decrease the amount of carbohydrate intake, pasta, bread, rice and potatoes are all sugar and that is aside from all the sweet stuff, remember that fruits are good but they are Sweet also. (4) Gout: Comment: Tophi right finger 2005 Code(s): M10.9 - Gout, unspecified Category: Medical Qualifiers: Chronicity: chronic Gout etiology: unspecified cause Gout site: unspecified site Presence of tophus: without tophus Qualified Code(s): M1A.9XX0 - Chronic gout, unspecified, without tophus (tophi) Plan: Low purine diet increase oral fluid (5) COPD (chronic obstructive pulmonary disease): Code(s): J44.9 - Chronic obstructive pulmonary disease, unspecified Category: Medical Qualifiers: COPD type: emphysema Emphysema type: panlobular Qualified Code(s): J43.1 - Panlobular emphysema Plan: Continue with the inhalers albuterol and Wixela (6) Obesity (BMI 30-39.9): Code(s): E66.9 - Obesity, unspecified Category: Medical Plan: Diet and exercise (7) Hypertension: Code(s): I10 - Essential (primary) hypertension Category: Medical Qualifiers: Hypertension type: essential hypertension Qualified Code(s): I10 - Essential (primary) hypertension Plan: Continue with blood pressure medication. Decrease salt intake and exercise on metoprolol 25 mg once a day benazepril 40 mg once a day (8) BPH (benign prostatic hyperplasia): Code(s): N40.0 - Benign prostatic hyperplasia without lower urinary tract symptoms Category: Medical Qualifiers: Lower urinary tract symptom detail: urinary frequency Lower urinary tract symptom presence: symptoms present Qualified Code(s): N40.1 - Benign prostatic hyperplasia with lower urinary tract symptoms; R35.0 - Frequency of micturition Plan: Patient has 2 medications tamsulosin and finasteride (9) Lumbar degenerative disc disease: Comment: Dr. Aguilera, Dr. Borjas 2020 Code(s): M51.36 - Other intervertebral disc degeneration, lumbar region Category: Medical Plan: On pain medication as needed Plan History of Present Illness The patient is a 74-year-old male presenting with a follow-up visit for multiple chronic conditions including chronic obstructive pulmonary disease (COPD), hypertension, lumbar degenerative disc disease, bilateral knee osteoarthritis, and severe obstructive sleep apnea. The patient was last seen in March 2024 and has been consistently using CPAP therapy, achieving an average of five-plus hours nightly, with some interruption due to recent surgeries. He recently underwent a right knee arthroplasty and reported no new complications. The patient has a history of pneumonia, with the most recent recurrence managed successfully, and a chest x-ray was planned to confirm resolution. Recently, on May 08, 2024, the patient presented to the emergency room with palpitations and was diagnosed with atrial fibrillation. The patient has expressed concerns about the need to remain on anticoagulation therapy, particularly due to the risk of rhythm changes associated with atrial fibrillation. The use of a CPAP machine was recognized as an important factor in the management of sleep apnea, a known risk for atrial fibrillation. Additionally, the patient has been placed on furosemide for ankle swelling experienced during hospitalization, with a history of decreased potassium levels when previously on hydrochlorothiazide. He has transitioned off hydrochlorothiazide due to this side effect. The patient also reported difficulties in adherence to inhaler use for COPD management, emphasizing the need for reminders. He has recently acquired a new compact tractor which indicates some level of physical activity and interest. The patient declines influenza and COVID-19 vaccinations, underscoring his current stance on immunization. Plan - Continue CPAP therapy for sleep apnea with regular usage to mitigate symptoms and reduce the risk of atrial fibrillation. - Follow-up with cardiology for atrial fibrillation management; referral to Dr. Hough and potential continuation of anticoagulation therapy, recognizing the risk of rhythm disturbances. - Chest x-ray to verify the resolution of prior pneumonia. - Monitor blood pressure and adequacy of current hypertensive regimen including furosemide for leg swelling; hydrochlorothiazide will be avoided due to previous hypokalemia. - Reinforce COPD management with proper utilization of inhalers, such as Wexela twice daily. Encourage adherence by setting reminders. - After transitioning off hydrochlorothiazide, monitor potassium levels due to past cramp episodes and electrolyte fluctuations. - Consider referral for orthopaedic evaluation or injection for digital pain as per patient's request and necessity. - Conduct fasting blood work focusing on electrolytes and coagulation parameters. - Encourage cardiovascular health by evaluating the current efficacy and dosage of metoprolol and benazepril, with adjustments as necessary for optimal blood pressure and atrial fibrillation control. - Discuss and evaluate the patient?s reasons for declining vaccinations, providing education regarding the benefits of influenza and COVID-19 vaccines, especially given his chronic conditions. Patient was informed and verbally consented to the use of an ambient scribe for clinic note documentation during this visit. Orders: Orders IRON PROFILE Today I48.91 - Unspecified atrial fibrillation Lipid Panel Today E78.00 - Pure hypercholesterolemia, unspecified, I48.91 - Unspecified atrial fibrillation Phosphorus Today I48.91 - Unspecified atrial fibrillation Complete Blood Count Auto Diff Today I48.91 - Unspecified atrial fibrillation Comprehensive Met. Panel Today I48.91 - Unspecified atrial fibrillation Ferritin Today I48.91 - Unspecified atrial fibrillation B Type Natriuretic Peptide Today I48.91 - Unspecified atrial fibrillation Thyroid Stimulating Hormone Today I48.91 - Unspecified atrial fibrillation Vitamin B12 and Folate Today I48.91 - Unspecified atrial fibrillation Free T4 (Free Thyroxine) Today I48.91 - Unspecified atrial fibrillation Hemoglobin A1c Today I48.91 - Unspecified atrial fibrillation Magnesium Today I48.91 - Unspecified atrial fibrillation Referrals Cardiology Referral I48.91 - Unspecified atrial fibrillation
== END 2024-05-29 10:55 | disposition home or self-care (01) ==
PROVIDERS: PCP Internal Medicine; Visit Provider Internal Medicine
DX: I48.91 Unspecified atrial fibrillation (principal); J43.1 Panlobular emphysema; E66.9 Obesity, unspecified; Z68.36 Body mass index [BMI] 36.0-36.9, adult; M17.0 Bilateral primary osteoarthritis of knee; R73.02 Impaired glucose tolerance (oral); M1A.9XX0 Chronic gout, unspecified, without tophus (tophi); I10 Essential (primary) hypertension; N40.1 Benign prostatic hyperplasia with lower urinary tract symptoms; R35.0 Frequency of micturition; M51.369 Other intervertebral disc degeneration, lumbar region without mention of lumbar back pain or lower extremity pain

== ENCOUNTER 2024-07-30 08:51 | Outpatient (REF) | payer MEDICARE, SELFPAY ==
--- NOTE | ~2024-07-30 | CT_ITS ---
CLINICAL HISTORY: Z87.01 - Personal history of pneumonia (recurrent) CT chest without contrast Comparison: None Findings: No mediastinal mass or lymphadenopathy. No cardiomegaly. Moderate calcified coronary artery disease. Normal size thoracic aorta with moderate calcified atherosclerotic disease. Mild paraseptal and centrilobular emphysema. Subsegmental atelectasis and/or linear scarring. Calcified granuloma. Pulmonary nodules measure up to 5 mm. No pneumothorax or pleural effusion. No acute osseous or soft tissue abnormality. Focal intrahepatic biliary ductal dilatation in the left lobe of the liver. Impression: No acute findings. Pulmonary nodules measuring up to 5 mm, likely infectious/inflammatory. No follow-up is required in low risk individuals. High risk individuals have the option of a 1 year follow-up chest CT. Focal intrahepatic biliary ductal dilatation in the left lobe of the liver of uncertain etiology. This can be further evaluated with MR/ MRCP. This document has been electronically signed by: Dottie Gong MD on 07/30/2024 15:21:49
== END 2024-07-30 08:52 | disposition home or self-care (01) ==
LOC: HO.CT 08:51
PROVIDERS: PCP Internal Medicine; Visit Provider Nurse Practitioner Family
DX: Z87.01 Personal history of pneumonia (recurrent) (principal); R91.8 Other nonspecific abnormal finding of lung field
CPT/HCPCS: 71250

== ENCOUNTER → 2024-07-30 08:58 | Outpatient (BNV) | payer MEDICARE, SELFPAY | PROVIDERS: PCP Internal Medicine; Visit Provider Radiology Diagnostic Radiology | DX: R91.8 Other nonspecific abnormal finding of lung field (principal) | CPT/HCPCS: 71250 ==

== ENCOUNTER 2024-08-13 13:36 | Outpatient (AMB) | payer MEDICARE, SELFPAY ==
--- NOTE | 2024-08-13 13:38 | A.OFFVIS_ITS ---
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 Required: No Accompanied by: Self / Same As Patient Allergies bacitracin Allergy (Intermediate, Verified 08/13/24 14:00) rash hydrochlorothiazide Adverse Reaction (Intermediate, Unverified 08/13/24 14:24) leg cramps amlodipine Adverse Reaction (Intermediate, Uncoded 08/13/24 14:00) leg swelling Medication List - Last Reconciled 08/13/24 by Zaid Barrett MD albuterol sulfate 90 mcg/actuation (ProAir HFA) 2 puffs inhalation Q4-6H PRN albuterol sulfate 2.5 mg (3 mL) inhalation Q4-6H PRN 30 days allopurinol 300 mg PO DAILY apixaban (Eliquis) 5 mg PO BID benazepril 40 mg PO DAILY calcium polycarbophil (Fiber Laxative (calcium polycarbophil)) 1,250 mg (2 x 625 mg) PO DAILY 30 days cholecalciferol (vitamin D3) 50 mcg PO DAILY [CPAP Bilevel pressure of 16/6 cms fullface mask large heated humidification As directed Bilevel pressure of 16/6 cms fullface mask large heated humidification] docusate sodium (Colace) 200 mg (2 x 100 mg) PO BEDTIME empagliflozin (Jardiance) 10 mg PO DAILY finasteride 5 mg PO DAILY fluticasone propion-salmeterol 250-50 mcg/dose (Wixela Inhub) 1 inh inhalation Q12H furosemide 20 mg PO DAILY hydrocortisone 2.5% (Proctozone-HC) 1 appl [place] BID PRN metoprolol succinate ER 25 mg PO DAILY oxycodone-acetaminophen 5-325 mg (Percocet) 1 tab PO Q8H PRN polyethylene glycol 3350 (Miralax) 17 grams PO DAILY tamsulosin 0.4 mg PO DAILY tramadol 50 mg PO TID PRN HPI SWV G0439 HPI Details [place] of care patient has [facility], [facility] pulmonary for [facility], [facility], urology [facility] gastroenterology [facility] ENT surgeons of [facility], [place] [facility], vascular surgeon Dr. Perales. 3weeks ago - fall fell on back no syncope [facility] Medical History (Updated 08/13/24 @ 14:42 by Zaid Barrett MD) Obstructive sleep apnea Screening for colon cancer Hypersomnia COVID-19 virus infection Otitis media Impacted cerumen of left ear Cerumen impaction Preoperative clearance COVID-19 virus infection Fever and chills Cervical radiculopathy Thrombophlebitis leg superficial Lumbar degenerative disc disease Fatty liver Osteoarthritis Carpal tunnel syndrome BPH (benign prostatic hyperplasia) Vitamin D deficiency Hypertension Obesity (BMI 30-39.9) COPD (chronic obstructive pulmonary disease) Gout Impaired glucose tolerance Peripheral vascular disease Surgical History (Updated 05/29/24 @ 10:15 by MINE Borrero) History of total knee replacement History of back surgery History of back surgery History of colonoscopy History of varicose vein stripping History of right knee surgery History of elbow surgery History of removal of cyst History of carpal tunnel release Family History Father Lung cancer Brain cancer Mother No problems noted. Paternal Uncle Brain cancer Lung cancer Social History (Updated 08/13/24 @ 14:29 by Zaid Barrett MD) Housing: House Alcohol intake: current Alcohol intake frequency: 0-2 drinks per day Alcohol type: beer Comment: 2 drinks a day, QOD 2 drinks Patient Tobacco Use Status: Former Tobacco user Tobacco use type: Cigarette Years Smoked: quit 2004 e-Cigarette/Vaping Use: Never Used Second Hand Smoke Exposure: No service: No Current occupational status: retired Cognitive needs: No Hearing needs: No Vision needs: No Questionnaire Medicare Wellness Checkup [age] What gender do you identify with?: male During the past 4 weeks, how much have you been bothered by emotional problems such as feeling anxious, depressed, irritable, sad or downhearted, and blue?: not at all During the past 4 weeks, has your physical & emotional health limited your social activities with family, friends, neighbors, or groups?: not at all During the past 4 weeks, how much bodily pain have you generally had?: moderate pain During the past 4 weeks, was someone available to help you if you needed & wanted help?: no, not at all During the past 4 weeks, what was the hardest physical activity you could do for at least 2 minutes?: heavy Can you get to places out of walking distance without help? (For eg., can you travel alone on buses, taxis or drive your car?): Yes Can you go shopping for groceries or clothes without someone's help?: Yes Can you prepare your own meals?: Yes Can you do your housework without help?: Yes Because of any health problems, do you need the help of another person with your personal care needs such as eating, bathing, dressing or getting around the house?: No Can you handle your own money without help?: Yes During the past 4 weeks, how would you rate your health in general?: very good During the past 4 weeks how have things been going for you?: pretty well Are you having difficulties driving your car?: no Do you always fasten your seat belt when you are in a car?: yes, usually During past 4 weeks, have you been bothered by the following: never: Falling or dizzy when standing up, Trouble eating well?, Teeth or denture problems? and Problems using the telephone?, seldom: Tiredness or fatigue? and often: Sexual problems? Have you fallen 2 or more times in the past year?: No Are you afraid of falling?: Yes Are you a smoker?: no During the past 4 weeks, how many drinks of wine, beer, or other alcoholic beverages did you have?: 2-5 drinks per week Do you exercise for about 20 minutes 3 or more times a week?: yes, all the time Have you been given information to help with the following?: yes: Hazards in your house that might hurt you? and no: Keeping track of your medications? How often do you have trouble taking medicines the way you have been told to take them?: I always take medicine as prescribed How confident are you that you can control & manage most of your health problems?: very confident What is your race?: White PHQ-9 Over the last 2 weeks, how often have you been bothered by any of the following problems? 1. Little interest or pleasure in doing things: not at all 2. Feeling down, depressed, or hopeless: not at all 3. Trouble falling or staying asleep, or sleeping too much: not at all 4. Feeling tired or having little energy: not at all 5. Poor appetite or overeating: not at all 6. Feeling bad about yourself - or that you are a failure or have let yourself or your family down: not at all 7. Trouble concentrating on things, such as reading the newspaper or watching television: not at all 8. Moving or speaking so slowly that other people could have noticed. Or the opposite - being so fidgety or restless that you have been moving around a lot more than usual: not at all 9. Thoughts that you would be better off or of hurting yourself in some way: not at all Total score: 0 Depression Screening Interpretation: Negative Depression Screening Done: Yes 39068 - PHQ-9 Billing: Yes Source: Developed by Drs. Abiel Perez, Ceci Foss, Leonel Ram and colleagues, with an educational niurka from [employer]. Review of Systems Const Denies poor appetite and Denies weakness Eyes Denies no additional complaints ENT Reports Normal hearing present, Denies dizziness, Denies nasal congestion, Denies tinnitus and Denies sore throat Card Denies chest pain, Denies syncope, Denies rapid heart rate and Denies dyspnea Resp Denies cough and Denies dyspnea GI Denies change in stool character, Reports constipation, Denies diarrhea, Denies nausea and Denies vomiting Denies dysuria and Denies urinary frequency Neuro Reports Normal hearing present, Denies confusion, Denies dizziness, Denies syncope and Denies weakness Psych Denies confusion Physical Exam Vital Signs: Last Vital Signs Temp 97.3 F 08/13/24 13:59 Pulse 61 08/13/24 13:59 BP 132/70 08/13/24 14:23 Pulse Ox 94 08/13/24 13:59 Oxygen Delivery Method Room Air 08/13/24 13:59 BMI result Body Mass Index 36.4 Const General: No confusion Orientation/consciousness: No confusion HEENT Other: impacted cerumen bilateral Head: Yes normocephalic Ears: external ears normal and TM's normal bilaterally Face and sinus: Yes normal facial exam Mouth: moist mucous membranes Throat: Yes tonsils normal Eyes Conjunctivae: conjunctivae normal Pupils: Equal, round and reactive pupils present and Pupil accommodation reflex normal Direct Ophthalmoscopy: normal light reflex Neck Neck: No lymphadenopathy Thyroid: Thyroid normal Chest Chest palpation & inspection: normal inspection of the chest Resp Effort & Inspection: normal respiratory effort and no audible wheezes Auscultation: clear to auscultation bilaterally, no crackles, no wheezes and lung sounds not diminished Cardio Rate: regular rate Rhythm: regular rhythm Peripheral pulses: radial pulses present and dorsalis pedis present GI Other: declined Palpation (GI): no masses Auscultation: normal bowel sounds and normoactive bowel sounds Rectal Exam - Male: Yes deferred Other: declined Skin General skin exam: no rashes or lesions noted Rashes: no rashes Neuro General: No confusion Cranial nerves: Yes Equal, round and reactive pupils present and Yes Normal hearing present Cognition (Neuro): normal cognition Gait exam (Neuro): Normal gait present Motor exam (neuro): 5/5 motor strength present throughout Deep tendon reflexes (DTR's): Right brachioradialis reflex intensity grade: 2+, Left brachioradialis reflex intensity grade: 2+, Right patellar reflex intensity grade: 2+ and Left patellar reflex intensity grade: 2+ Extrem General: No edema Assessment & Plan Assessment & Plan (1) Medicare annual wellness visit, subsequent: Code(s): Z00.00 - Encounter for general adult medical examination without abnormal findings Plan: Patient is advised to eat healthy, keep well hydrated, keep active and have adequate sleep. (2) Atrial fibrillation: Code(s): I48.91 - Unspecified atrial fibrillation Plan: Continue with anticoagulation with Eliquis (3) COPD (chronic obstructive pulmonary disease): Code(s): J44.9 - Chronic obstructive pulmonary disease, unspecified Qualifiers: COPD type: emphysema Emphysema type: panlobular Qualified Code(s): J43.1 - Panlobular emphysema Plan: Continue with albuterol inhaler and Wixela (4) Obesity (BMI 30-39.9): Code(s): E66.9 - Obesity, unspecified Plan: Diet and exercise (5) Hypertension: Code(s): I10 - Essential (primary) hypertension Qualifiers: Hypertension type: essential hypertension Qualified Code(s): I10 - Essential (primary) hypertension Plan: Continue with blood pressure medication. Decrease salt intake and exercise patient is on metoprolol 25 mg once a day benazepril 40 mg once a day (6) BPH (benign prostatic hyperplasia): Code(s): N40.0 - Benign prostatic hyperplasia without lower urinary tract symptoms Qualifiers: Lower urinary tract symptom detail: urinary frequency Lower urinary tract symptom presence: symptoms present Qualified Code(s): N40.1 - Benign prostatic hyperplasia with lower urinary tract symptoms; R35.0 - Frequency of micturition Plan: Continue with finasteride and tamsulosin (7) Impaired glucose tolerance: Code(s): R73.02 - Impaired glucose tolerance (oral) Plan: Decrease the amount of carbohydrate intake, pasta, bread, rice and potatoes are all sugar and that is aside from all the sweet stuff, remember that fruits are good but they are Sweet also. (8) Severe obstructive sleep apnea: Comment: Sleep titration study done January 2023 moderately severe obstructive sleep apnea with nocturnal hypoxemia. Bilevel pressure of 16/6 cms fullface mask large heated humidification Code(s): G47.33 - Obstructive sleep apnea (adult) (pediatric) Plan: Continue to use the CPAP more than 4 hours a night and benefits from this (9) Bilateral primary osteoarthritis of knee: Comment: Arthroplasty Dr. Alcantara April 2024 right Code(s): M17.0 - Bilateral primary osteoarthritis of knee Plan: Keep active patient follows up with orthopedics (10) Dilated intrahepatic bile duct: Code(s): K83.8 - Other specified diseases of biliary tract (11) LLQ pain: Code(s): R10.32 - Left lower quadrant pain Plan History of Present Illness The patient is a 74-year-old male presenting for an annual well visit and to follow up on multiple chronic conditions. He has a significant history of hypertension, chronic obstructive pulmonary disease, atrial fibrillation, and several other conditions. Upon last seen in May 2024, his history of lumbar spinal stenosis was notable, with surgical intervention in 2020. He recently consulted orthopedics for previous bilateral knee replacement. For his cardiac condition, he is on an extensive treatment regime. Furthermore, a chest CT conducted in July showed no urgent anomalies. Recently recorded bloodwork noted mild anemia. His regular medications include anticoagulants and inhaled therapies, with reported adherence to CPAP use for sleep apnea. Health Maintenance - Review and monitoring of hypertension, COPD, and atrial fibrillation. - CPAP usage for obstructive sleep apnea with a recommendation of more than 4 hours per night. - Continuing anticoagulation therapy with Eliquis. - Encouragement of a balanced diet and regular exercise. - Routine use of albuterol inhaler and Wixela for respiratory issues. - Scheduled follow-up with orthopedics and other specialists. - Continued management of impaired glucose tolerance. Social History - Alcohol consumption: Every other day, occasionally on consecutive days. - No tobacco use. - Engaged in physical activities including household work and backyard tasks. - Dietary intake includes regular meals with consideration of healthier choices. - Lives in an environment conducive to maintaining physical activities. Review of Systems - Constitutional: Denies fever, reports mild anemia. - Cardiovascular: Denies palpitations, dizziness, or passing out. - Respiratory: Reports CPAP usage; denies wheezing or coughing with food. - Gastrointestinal: Reports using fiber with insufficient effect; occasional use of laxatives. - Genitourinary: No problems reported with urination. - Musculoskeletal: Reports leg cramps. - Neurological: Denies dizziness or syncope. - Hematologic/lymphatic: No reports of unusual bruising beyond minor cuts. Physical Exam General: Cooperative, healthy appearing, comfortable, no acute distress and well developed Orientation: Patient oriented x3 Limitations: No limitations Head: Normal to inspection Ears: Hearing grossly normal bilaterally, but presence of ear wax noted, especially in the left ear, about 70% occluded Nose: Normal external nose present Face and sinus: Normal facial exam Eyes: Appearance normal, both eyes and all related structures Neck: Normal visual inspection and Yes full ROM Respiratory: Normal respiratory effort and able to speak in complete sentences. Clear to auscultation bilaterally Cardiovascular: Regular rate and rhythm. Normal S1 and S2 GI: Normal to inspection. Soft to palpation and nontender, but patient reports persistent discomfort in the abdominal area Skin: No rashes or lesions noted Neuro: Patient oriented x3 Extremities: Normal to inspection, but patient reports occasional leg cramps, possibly due to medication effects Results - CT scan of the chest: Pulmonary nodules noted, no acute findings. - Routine blood work: Mild anemia previously observed with a hemoglobin of 13.6 and hematocrit of 40.2. Plan Continuation of existing therapies for hypertension, congestive heart failure, and respiratory issues is advised, maintaining regular use of Eliquis and furosemide while monitoring for any adverse effects. CPAP usage should exceed 4 hours per night to effectively manage sleep apnea. New blood work will be scheduled to evaluate kidney function due to current medication implications. Lifestyle advice includes reinforcing his dietary plan and physical activity, while maintaining vigilance with any new or worsening symptoms. Strengthening exercises focusing on balance are encouraged to mitigate fall risk. Comprehens herminia follow-ups will be organized with his nuclear officer, certified residential medication aide, orthopedist, and necessary specialists depending on his evolving health status. Patient was informed and verbally consented to the use of an ambient scribe for clinic note documentation during this visit. Discussion Notes During this visit, I discussed the management and continued treatment of the patient's chronic conditions, including specific medications like Eliquis and its necessity due to atrial fibrillation. We reviewed the benefits of CPAP therapy in obstructive sleep apnea treatment, confirming the need to maintain regular usage. New blood work is planned to monitor the patient's response and manage potential side effects from treatments. Dietary and physical activity improvements are recommended as preventive measures. I confirmed that patient understands the importance of adhering to lifestyle adjustments for cardiovascular health. Additionally, the patient was informed about his follow- up appointments with various specialists to ensure optimal management of his comprehensive health needs. Patient Instructions - Continue all prescribed medications as directed. - Use the CPAP machine for at least 4 hours a night. - Follow a balanced diet and engage in regular physical activity. - Schedule new blood work as recommended. - Monitor blood pressure at home and record readings. - Follow up with specialists as scheduled. - Increase water intake to help with leg cramps related to medication use. Orders: Orders Uric Acid Today I48.91 - Unspecified atrial fibrillation CT abdomen pelvis wo/w IV con Today R10.32 - Left lower quadrant pain Quality Reporting (2019) Depression/Bipolar (159/160/161/177) PHQ-9: Total score: 0 Coding Level of Care Code Medicare Subsequent (G0439) Diagnoses Medicare annual wellness visit, subsequent Z00.00 Atrial fibrillation I48.91 Panlobular emphysema J43.1 COPD type: emphysema Emphysema type: panlobular Obesity (BMI 30-39.9) E66.9 Essential hypertension I10 Hypertension type: essential hypertension Benign prostatic hyperplasia with urinary frequency N40.1; R35.0 Lower urinary tract symptom detail: urinary frequency Lower urinary tract symptom presence: symptoms present Impaired glucose tolerance R73.02 Severe obstructive sleep apnea G47.33 Bilateral primary osteoarthritis of knee M17.0 Dilated intrahepatic bile duct K83.8 LLQ pain R10.32 Additional Codes PHQ-9 - 51728 - PHQ-9 Billing: Yes ([id number])
[2024-08-13 13:59] VITALS: BP 140/62; PULSE 61; TEMP 36.3; O2SAT 94; BMI 36.4
[2024-08-13 14:23] VITALS: BP 132/70
== END 2024-08-13 14:51 | disposition home or self-care (01) ==
LOC: HO.HMCH 13:36
PROVIDERS: PCP Internal Medicine; Visit Provider Internal Medicine
DX: Z00.00 Encounter for general adult medical examination without abnormal findings (principal); I48.91 Unspecified atrial fibrillation; J43.1 Panlobular emphysema; E66.9 Obesity, unspecified; I10 Essential (primary) hypertension; N40.1 Benign prostatic hyperplasia with lower urinary tract symptoms; R35.0 Frequency of micturition; R73.02 Impaired glucose tolerance (oral); G47.33 Obstructive sleep apnea (adult) (pediatric); M17.0 Bilateral primary osteoarthritis of knee; K83.8 Other specified diseases of biliary tract; R10.32 Left lower quadrant pain

== ENCOUNTER → 2024-08-13 13:36 | Outpatient (BNVA) | payer MEDICARE, SELFPAY | PROVIDERS: PCP Internal Medicine; Visit Provider Internal Medicine | DX: Z00.00 Encounter for general adult medical examination without abnormal findings (principal); I48.91 Unspecified atrial fibrillation; J43.1 Panlobular emphysema; I10 Essential (primary) hypertension; N40.1 Benign prostatic hyperplasia with lower urinary tract symptoms; R35.0 Frequency of micturition; R73.02 Impaired glucose tolerance (oral); G47.33 Obstructive sleep apnea (adult) (pediatric); M17.0 Bilateral primary osteoarthritis of knee; K83.8 Other specified diseases of biliary tract; R10.32 Left lower quadrant pain; E66.9 Obesity, unspecified; Z68.36 Body mass index [BMI] 36.0-36.9, adult | CPT/HCPCS: 96127 ==

== ENCOUNTER 2024-08-28 08:13 | Outpatient (REF) | payer MEDICARE, SELFPAY ==
--- OUTSIDE RECORDS SUMMARY | 2024-08-28 08:18 | XMS_ITS | Data Portability ---
Author Organization [place] - Antolin Pressley [facility], [facility] Address [address] [place] [address] Care Team Providers Care Airway Controller Name Role Phone LIANA LOVING Primary Care Provider Assessment Encounter Date Assessment Date Assessment LastModified by Organization Details LastModified Time 06/07/2024 06/07/2024 Assessment: Another gain in knee flexion ROM observed this visit. Plan: Continue with ROM, strengthening, gait training to improve functional mobility. Not available 06/07/2024 11:00:42 06/12/2024 06/12/2024 Assessment: Patient tolerated ther-x progressions well, added mini squats and sit to stands today with good tolerance and no cuing needed for form or posture. Plan: Continue with ROM, strengthening, gait training to improve functional mobility, patient regressed to once a week, finalize and d/c on 06/26. [email or web address] Not available 06/12/2024 11:45:31 06/21/2024 06/21/2024 Assessment: Patient with lateral trunk lean bilaterally with gait with no assistive device. Plan: 1x to finalize HEP with pt. Not available 06/21/2024 12:52:23 06/26/2024 06/26/2024 Assessment: Patient with excellent post op ROM, improving strength and normalizing gait pattern. Plan: DC to indep HEP. Not available 06/25/2024 15:00:15 08/02/2024 08/02/2024 History: The patient is approximately 3 months status post a right total knee arthroplasty and 5 months status post a left total knee arthroplasty and presents for routine follow-up per our request. Pain level 0-10 in both. Reports no limitations. Because of a small area of granulation over the distal aspect of his right knee incision at the confluence of 2 previous incisions which he is providing wound care to. Reports no limitations in regards to this. Denies any signs of infection. PMH/PSH/MEDS/ALL /FMH/SOC HX/ROS all reviewed in detail per my medical intake sheet. ROS: The patient denies fevers, chills, neurovascular changes, history of trauma. Exam: Vitals signs as noted. Alert and oriented x3. Appears well and in no acute distress. Extremities: Incision is well-healed. Calves are soft and nontender. No evidence of DVT. No lower extremity edema. Neurovascular status at baseline. Range of motion is 0-125 bilaterally. Ligaments are stable to varus and valgus stresses. No significant effusion. Quad strength is 5 out of 5 bilaterally. Small area of granulation tissue measuring 8 x 5 mm near the distal aspect of the incision. Nothing terribly concerning at this point X-rays: Radiographs were not obtained today. Assessment: The patient is doing well approximately 3 months s/p TKA. Local wound care was discussed with him at length. Signs of infection explained. Plan: The patient will continue with a home exercise program for additional strengthening and conditioning. Otherwise, the patient will continue with activity as tolerated. The patient was advised to take occasional OTC acetaminophen or OTC NSAIDS for mild residual discomfort if they are not otherwise medically contraindicated. They are encouraged to discuss this with their PCPS. The potential benefits, risks, and side effects were explained at length.Total knee replacement activity precautions were reviewed. The need for antibiotic prophylaxis for dental visits was discussed. The patient will follow-up in 3 months if the granulation is not completely healed or annually or sooner if there are any problems. Should he develop any signs of infection is to follow up immediately. [email or web address] Not available 08/02/2024 11:29:58 Plan of Treatment Reminders Order Date Submit Date Provider Last Modified By Organization Details Last Modified Time Details Appointments None record ed. Lab None record ed. Referral None record ed. Procedures None record ed. Surgeries None record ed. Imaging None record ed. Medication Orders None record ed. Patient TargetsNo targets recorded. Patient InstructionsNo instructions recorded. Reason for Referral None Reported. Results Created Date Observation Date Name Description Value Unit Range Abnormal Flag Note LastModifiedBy Organization Detail LastModifiedTime 05/15/19 25 05/15/2024 XR, knee, 3 view http:/ [email or web address] ?Encry pted=s hAaTro YD8dLq bEUv6g %2BXZw aYqtaq 0bqfl% 2Fg9IQ a4ajBk vP9nXo QUaueC m3YtLR FvZlgJ JJ8mAn HZtai3 [id number] AC0Kqb HqAVKa kKiQtr MwF INTERFACE [facility] [address], [place], [address], 05/15/2024 15:11:33 05/15/19 25 05/15/2024 XR, knee, 3 view http:/ [email or web address] ?Encry pted=s hAaTro YD8dLq bEUv6g %2BXZw aYqtaq 0bqfl% 2Fg9IQ a4ajBk vP9nXo QUaueC m3YtLR FvZlgJ JJ8Gonzales HZtai3 [id number] AC0Kqb HqAVKa kKiQtr MwF INTERFACE [facility] [address] [facility] [address], [place], [address], 05/15/2024 15:11:35 Result Notes None recorded. Problems Name Problem SNOMED Code Status Onset Date Resolution Date Notes Provider Name and Address Organization Details Recorded Time Osteoarthritis of knee 019517128 Active 2023 Lesa Zuluaga, PT [address], [place], [address], [facility] 4 18:09:32 Problem Notes None recorded. Procedures Surgical History Date Name Laterality Status Provider Name and Address Organization Details Recorded Time 5 44263 Therapeutic Exercise (1:1) completed Lesa Zuluaga, PT [address], [place], [address], [facility] 05/05/2024 15:06:41 5 27723 Therapeutic Exercise (1:1) completed Lesa Zuluaga PT [address], [place], [address], [facility] 04/23/2024 11:19:25 5 10165: Hot or Cold Pack completed Lesa Zuluaga, PT [address], [place], [address], [facility] 04/23/2024 11:19:25 5 66998 Therapeutic Exercise (1:1) completed Lesa Zuluaga, PT [address], [place], [address], [facility] 04/19/2024 16:29:11 5 48800: Hot or Cold Pack completed Lesa Zuluaga, PT [address], [place], [address], [facility] 04/20/2024 16:16:51 5 17079 Therapeutic Exercise (1:1) completed Lesa Zuluaga, PT [address], [place], [address], [facility] 04/16/2024 14:59:19 5 21088 Therapeutic Exercise (1:1) completed Neto Mandel, BENCH [employer]OM [employer]ER [address], [place], [address], [facility] 04/12/2024 14:13:47 5 71988: Hot or Cold Pack completed Neto Mandel, [employer]ER [address], [place], [address], [facility] 04/12/2024 14:13:47 5 89389 Therapeutic Exercise (1:1) completed Neto Mandel, BEN[employer]OM [employer]ER [address], [place], [address], [facility] 04/09/2024 15:05:27 5 66449: Hot or Cold Pack completed Neto Mandel, [employer]OM [employer]ER [address], [place], [address], [facility] 04/09/2024 15:05:27 5 91282 Therapeutic Exercise (1:1) completed Lesa Zuluaga, PT [address], [place], [address], [facility] 04/05/2024 13:23:55 5 25847: Hot or Cold Pack completed Lesa Zuluaga, PT [address], [place], [address], [facility] 04/05/2024 13:23:55 4 17306 Therapeutic Exercise (1:1) completed Neto Mandel [employer] [address], [place], [address], [facility] 04/03/2024 10:13:08 4 65536: Hot or Cold Pack completed Neto Mandel [employer] [address], [place], [address], [facility] 04/02/2024 15:05:59 4 71622 Therapeutic Exercise (1:1) completed Ketan Pitt PT [address], [place], [address], [facility] 03/29/2024 12:15:50 4 01219: Hot or Cold Pack completed Ketan Pitt PT [address], [place], [address], [facility] 03/29/2024 12:11:12 4 55359 Therapeutic Exercise (1:1) completed Neto Mandel PTA [address], [place], [address], [facility] 03/27/2024 11:27:07 4 09976: Manual therapy completed Neto Mandel [employer]ER [address], [place], [address], [facility] 03/26/2024 13:10:59 4 84482 Therapeutic Exercise (1:1) completed Lesa Wing, PT [address], [place], [address], [facility] 03/20/2024 12:36:38 4 92162: Hot or Cold Pack completed Lesa Wing, PT [address], [place], [address], [facility] 03/21/2024 12:33:04 4 45309: Manual therapy completed Lesa Wing, PT [address], [place], [address], [facility] 03/20/2024 12:36:38 4 49719 Therapeutic Exercise (1:1) completed Lesa Wing, PT [address], [place], [address], [facility] 03/19/2024 11:30:52 4 63108: Manual therapy completed Lesa Wing, PT [address], [place], [address], [facility] 03/19/2024 11:30:46 4 24894 Therapeutic Exercise (1:1) completed Lesa , PT [address], [place], [address], [facility] 03/09/2024 08:41:38 4 12089: PT re-eval completed Lesa Wing, PT [address], [place], [address], [facility] 03/16/2024 11:17:41 4 89527 Therapeutic Exercise (1:1) completed Lesa Wing, PT [address], [place], [address], [facility] 02/05/2024 18:14:03 4 43252: Low complexity PT Eval completed Lesa , PT [address], [place], [address], [facility] 02/05/2024 18:14:09 Imaging Results None recorded. Procedure Notes None recorded. Medical Equipment None Reported. Allergies No known drug allergies Medications Name Sig Start Date Stop Date Status Note LastModified by Organization Details LastModified Time celecoxib 200 mg capsule Take 1 capsule every day by oral route for 30 days. 08/02 completed Not Available Not Available Not Available amoxicillin 500 mg capsule TAKE 4 CAPSULE BY MOUTH 1 HOURS BEFORE DENTIST APPOINTME NT active Not Available Not Available No t Available cefpodoxime 200 mg tablet TAKE 1 TABLET BY MOUTH TWICE DAILY 01/18 completed Not Available Not Available Not Available azithromyci n 250 mg tablet TAKE 2 TABLETS BY MOUTH ON DAY 1 THEN TAKE 1 TABLET BY MOUTH EVERY DAY ON DAYS 2-5 01/18 completed Not Available Not Available Not Available meloxicam 15 mg tablet Take 1 tablet every day by oral route. 08/02 completed Not Available Not Available Not Available tramadol 50 mg tablet TAKE 1 TABLET BY MOUTH THREE TIMES DAILY NEEDED FOR PAIN active Not Available Not Available No t Available oxycodone-a cetaminophe n 5 mg-325 mg tablet TAKE 1 TABLET BY MOUTH EVERY 8 HOURS NEEDED FOR PAIN 08/02 completed Not Available Not Available Not Available hydrocortis one 2.5 % topical cream with perineal applicator APPLY RECTALLY TO THE AFFECTED AREA TWICE DAILY NEEDED FOR HEMORRHOI DS 01/18 completed Not Available Not Available Not Available prednisolon e acetate 1 % eye drops,suspe nsion SHAKE LIQUID AND INSTILL 1 DROP IN LEFT EYE FOUR TIMES DAILY active Not Available Not Available No t Available tamsulosin 0.4 mg capsule TAKE 1 CAPSULE DAILY active Not Available Not Available No t Available pantoprazol e 40 mg tablet,colby yed release TAKE 1 TABLET BY MOUTH EVERY DAY 08/02 completed Not Available Not Available Not Available docusate sodium 100 mg capsule TAKE 2 CAPSULES BY MOUTH AT BEDTIME active Not Available Not Available No t Available allopurinol 300 mg tablet TAKE 1 TABLET DAILY active Not Available Not Available No t Available hydrochloro thiazide 25 mg tablet TAKE 1 TABLET DAILY 08/02 completed Not Available Not Available Not Available furosemide 20 mg tablet TAKE 1 TABLET BY MOUTH DAILY active Not Available Not Available No t Available metoprolol succinate ER 25 mg tablet,exte nded release 24 hr TAKE 1 TABLET DAILY active Not Available Not Available No t Available polyethylen e glycol 3350 17 gram/dose oral powder DISSOLVE 17 GRAMS IN LIQUID AND DRINK BY MOUTH DAILY. 01/18 completed Not Available Not Available Not Available benazepril 40 mg tablet TAKE 1 TABLET DAILY active Not Available Not Available No t Available finasteride 5 mg tablet TAKE 1 TABLET DAILY active Not Available Not Available No t Available amoxicillin 875 mg-potassiu m clavulanate 125 mg tablet 05/09 completed Not Available Not Available Not Available oxycodone 5 mg tablet TAKE 1 TABLET BY MOUTH EVERY 6 HOURS NEEDED FOR MODERATE TO SEVERE PAIN 08/02 completed Not Available Not Available Not Available Horizon Nasal Cpap System device 01/18 completed Not Available Not Available Not Available hydrochloro thiazide 12.5 mg tablet TAKE 1 TABLET BY MOUTH DAILY 01/18 completed Not Available Not Available Not Available oxycodone 10 mg tablet TAKE 1/2 TO 1 TABLET BY MOUTH EVERY 8 HOURS NEEDED FOR MODERATE TO SEVERE PAIN 08/02 completed Not Available Not Available Not Available oxycodone HCl-oxycodo ne-ASA 1 tab every 6 hours as needed for painDO NOT DRIVE WHILE TAKING THIS MEDICATIO N 12/14 completed Statu s: 'Curr ent'; Not Available Not Available Not Available Eliquis 5 mg tablet TAKE 1 TABLET BY MOUTH TWICE DAILY active Not Available Not Available No t Available Jardiance 10 mg tablet TAKE 1 TABLET BY MOUTH DAILY IN THE MORNING active Not Available Not Available No t Available metoprolol succinate ER 25 mg capsule sprinkle, ext. release 24 hr Take 1 capsule every day by oral route. 05/09 completed Not Available Not Available Not Available Wixela Inhub 250 mcg-50 mcg/dose powder for inhalation INHALE 1 PUFF BY MOUTH EVERY 12 HOURS active Not Available Not Available No t Available Vitals Date Recorded Body height Provider Name an d Address Organization Details Last Updated DateTime 08/02/2024 177.8 cm Radha [facility] 08/02/2024 08:59:56 Social History Question Answer Notes LastModified by Organizat ion Details LastModified Time Tobacco Smoking Status Never Smoker CHYNA kilgore [place] - [facility] 04/05/2024 09:12:07 Have You Ever Been Counseled For Unhealthy Alcohol Use? No Information not available 04/05/2024 What Is Your Relationship Status? Information not available 04/05/2024 Sex: Unknown Functional Status Question Answer Note LastModified by Organizat ion Details LastModified Time How many times per week do you consume alcohol? Less than 1 time per week Information not available 04/05/2024 Do you use any illicit or recreational drugs? No Information not available 04/05/2024 Do you or have you ever used any other forms of tobacco or nicotine? No Information not available 04/05/2024 What is your level of alcohol consumption? Occasional Information not available 04/05/2024 Mental Status None recorded. Family History Nothing Reported. Medical History Condition Response Allergies/Hayfever N Coronary Artery Disease N Anxiety/Depression N Breathing or lung disorders N Emphysema N Nerve Disorders N Thyroid Problems N COPD Y Pacemaker N Anemia N Kidney/Bladder Problems N Vascular Disease N Heart Trouble N Heart Attack ([place]) N Gastrointestinal Disease N Cholesterol N Diabetes N Autoimmune disease N Bleeding Disorder N Inflammatory Joint disease N Orthotics N Arthritis Y Seizures/Epilepsy N Blood Clot N AIDS/HIV N Congestive Heart Failure (CHF) N Acid Reflux (GERD) N Cancer N Stroke N Asthma N Circulation Problems N Peripheral Vascular Disease N Sleep Apnea N Hepatitis N Heart Disease N Rheumatoid Arthritis N Arrhythmia N Pulmonary Embolism N Headaches N Fibromyalgia N Hypertension Y Osteoporosis N Past Encounters Encounter ID Performer Location Encounter Start Date Encounter Closed Date Diagnosis/Indication Diagnosis SNOMED-CT Code Diagnosis ICD10 Code Diagnosis Note [id number] YAAKOV [facility] [address] [place] [address] 12/15/2023 08:59:46 01/05/2024 15:26:18 Pain of left knee joint 8444114283 17083 M25.562 Bilateral osteoarthritis of knees 1334317613 81966 M17.0 [id number] MD Raymundo [facility] [address] [place] [address] 01/19/2024 08:51:42 02/09/2024 15:01:49 Primary gonarthrosis, bilateral 143408026 M17.0 [id number] Lesajayson Zuluaga, PT [facility] [address] [place] [address] 02/06/2024 14:52:23 02/06/2024 15:21:31 Osteoarthritis of knee 716108221 M17.12 [id number] Ozzy Weir, HEAD [employer] [facility] [address] [place] [address] 02/27/2024 09:19:55 03/23/2024 04:04:43 [id number] Lesa Zuluaga, PT [facility] [address] [place] [address] 03/16/2024 10:26:08 03/16/2024 10:51:40 History of left total knee replacement 7316159803 620363 Z96.652 Z47.1 [id number] Lesa Zuluaga, PT [facility] [address] [place] [address] 03/19/2024 10:52:25 03/19/2024 11:33:58 History of left total knee replacement 7302922465 821886 Z96.652 Z47.1 [id number] DINAH LaraC [facility] [address] [place] [address] 03/19/2024 09:16:29 04/10/2024 10:47:33 Implantation of joint prosthesis 12846104 Z47.1 Knee joint prosthesis present 7720035762 02 Z96.287 [id number] Lesa Zuluaga, PT [facility] [address] [place] [address] 03/21/2024 10:47:45 03/21/2024 12:07:21 History of left total knee replacement 6446942123 241931 Z96.652 Z47.1 [id number] Neto Mandel, [employer] [facility] [address] [place] [address] 03/27/2024 10:04:30 03/27/2024 11:02:14 History of left total knee replacement 8875889095 208243 Z96.652 Z47.1 [id number] Ketan Pitt, PT [facility] [address] [place] [address] 03/29/2024 11:15:07 03/29/2024 12:50:56 History of left total knee replacement 9776007417 090263 Z96.652 Z47.1 [id number] Neto Mandel, [employer] [facility] [address] [place] [address] 04/03/2024 09:21:03 04/03/2024 10:18:47 History of left total knee replacement 6119373005 075181 Z96.652 Z47.1 [id number] YAAKOV [facility] [address] [place] [address] 04/05/2024 09:07:37 04/19/2024 11:25:30 Aftercare 567420410 Z51.89 Implantati on of joint prosthesis 86763360 Z47.1 [id number] Lesa , PT [facility] - [facility] [address] [place] [address] 04/06/2024 11:12:02 04/06/2024 13:57:26 History of left total knee replacement 6437024875 289253 Z96.652 Z47.1 [id number] Neto Peguerodavidkristal, [employer]ER [facility] [address] [place] [address] 04/10/2024 08:25:09 04/10/2024 10:07:07 History of left total knee replacement 3166733292 135594 Z96.652 Z47.1 [id number] Neto Mandel, [employer] [facility] [address] [place] [address] 04/13/2024 14:16:22 04/13/2024 14:39:52 History of left total knee replacement 2905374922 186749 Z96.652 Z47.1 [id number] Lesa Wing, PT [facility] [address] [place] [address] 04/17/2024 15:44:31 04/18/2024 07:27:46 History of left total knee replacement 5483651965 612321 Z96.652 Z47.1 [id number] Isabell Santiago PA-C [facility] [address] [place] [address] 04/19/2024 09:52:09 05/04/2024 03:58:35 [id number] Dave Alcantara MD [facility] [address] [place] [address] 04/19/2024 10:17:32 05/01/2024 08:38:08 Osteoarthritis of right knee joint 6951837643 31184 M17.11 [id number] Lesa Wing, PT [facility] [address] [place] [address] 04/20/2024 15:38:01 04/23/2024 07:06:06 History of left total knee replacement 0959929112 951241 Z96.652 Z47.1 [id number] Lesa Wing, PT [facility] [address] [place] [address] 04/23/2024 13:11:48 04/23/2024 14:21:41 History of left total knee replacement 4828145714 980127 Z96.652 Z47.1 [id number] Lesa Wing, PT [facility] [address] [place] [address] 05/09/2024 17:05:45 05/09/2024 18:01:41 History of right total knee replacement 4273359268 482031 Z96.651 Z47.1 [id number] Skyla Last PA-C [facility] [address] [place] [address] 05/09/2024 13:10:45 05/18/2024 08:56:59 Postoperative visit 560842718 Z48.89 Knee joint prosthesis present 7111594624 02 Z96.909 [id number] Neto Mandel, B[employer]ER [facility] [address] [place] [address] 05/16/2024 10:33:45 05/16/2024 12:08:06 History of right total knee replacement 4682673213 337737 Z96.651 Z47.1 [id number] Jl Polanco PA-C [facility] [address] [place] [address] 05/15/2024 14:39:03 06/01/2024 07:47:03 Pain of right knee region 8341363732 37958 M25.561 Osteoarthr itis of right knee joint 0619284029 84765 M17.11 [id number] Neto Flakitoman [employer]ER [facility] [address] [place] [address] 05/18/2024 10:38:47 05/18/2024 11:10:36 History of right total knee replacement 5447608119 566119 Z96.651 Z47.1 [id number] Lesa Zuluaga, PT [facility] [address] [place] [address] 05/23/2024 11:20:48 05/23/2024 14:47:05 History of right total knee replacement 8818573627 137847 Z96.651 Z47.1 [id number] Lesa Zuluaga, PT [facility] [address] [place] [address] 05/25/2024 09:37:03 05/25/2024 12:35:17 History of right total knee replacement 4495649162 023968 Z96.651 Z47.1 [id number] Jodie Lynch, [employer] [facility] [address] [place] [address] 05/28/2024 16:12:33 05/28/2024 17:16:00 History of right total knee replacement 8773329167 437363 Z96.651 Z47.1 [id number] Jl Polanco PA-C [facility] [address] [place] [address] 05/29/2024 15:34:46 06/14/2024 08:18:08 Osteoarthritis of right knee joint 5060565586 68069 M17.11 Triggering of digit 2399 10264 M65.255 [id number] Neto Mandel, [employer]ER [facility] [address] [place] [address] 05/31/2024 10:16:50 05/31/2024 12:06:43 History of right total knee replacement 9500072604 288467 Z96.651 Z47.1 [id number] Jodie Lynch, [employer]ER [facility] [address] [place] [address] 06/05/2024 10:13:10 06/05/2024 11:33:05 History of right total knee replacement 6029319631 456580 Z96.651 Z47.1 [id number] Lesa Zuluaga, PT [facility] [address] [place], [place] 0 06/07/2024 10:18:43 06/07/2024 11:29:52 History of right total knee replacement 8562973666 836606 Z96.651 Z47.1 [id number] Neto Mandel [employer] [facility] [address] [place] [address] 06/12/2024 10:21:55 06/12/2024 11:47:13 History of right total knee replacement 1083977438 862827 Z96.651 Z47.1 [id number] Lesa Wing, PT [facility] [address] [place] [address] 06/21/2024 10:50:23 06/21/2024 13:02:33 History of right total knee replacement 3011315526 200342 Z96.651 Z47.1 [id number] Lesa Wing, PT [facility] [address] [place] [address] 06/26/2024 10:18:40 06/26/2024 11:43:46 History of right total knee replacement 0948457583 433358 Z96.651 Z47.1 [id number] MD [facility] [address] [facility] [place] [address] 08/02/2024 08:53:04 08/09/2024 10:24:58 History of bilateral total knee replacement 8323678996 155152 Z96.653 Health Concerns Section Related Observation LastModified by Organization Detai ls LastModified Time None Recorded Concern Status LastModified by Organization Details LastModified Time None Recorded Advance Directives Directive None Recorded Payers Encounter Date Sequence Insurance Name Policy Number Policy Reyes Covered Member ID Reyes Member ID Guarantor Name 06/07/2024 1 [facility] MEDICARE HMO BLUE (MEDICARE REPLACEMENT HMO) [id number] Edward C [place] [id number] Edward C Nikolas 06/12/2024 1 [facility]: MEDICARE HMO BLUE (MEDICARE REPLACEMENT HMO) [id number] Edward C [place] [id number] Edward C [place] 06/21/2024 1 [facility] [place]ICARE HMO BLUE (MEDICARE REPLACEMENT HMO) [id number] Edward C Nikolas [id number] Edward C [place] 06/26/2024 1 [facility] [place] HMO BLUE (MEDICARE REPLACEMENT HMO) [id number] Edward C [place] [id number] Edward C Nikolas 08/02/2024 1 [facility]: [place]IC[place] HMO BLUE (MEDICARE REPLACEMENT HMO) [id number] Edward C [place] [id number] Edward C [place] Notes Date Note Type Note Provider Name and Address Organization Details Recorded Time 06/07/2024 text/html Pt states that armando perez was able to walk a little more this weekend with minimal soreness in the knee. Lesa Zuluaga, PT [address], [place], [address], [place] - [facility] 06/07/2024 11:14:54 06/12/2024 text/html Pt states feelin g good with no complaints of pain or soreness,, states he feels like he's close to being ready for discharge. Neto Mandel, [employer] [address], [place], [address], [facility] 06/12/2024 11:52:34 06/21/2024 text/html Pt states he get s some soreness at the outer right knee area and even the left knee feels a bit tight with a pressure sensation every now and then. Lesa Zuluaga, PT [address], [place], [address], [facility] 06/21/2024 12:52:36 06/26/2024 text/html Pt states he has been getting around outdoors easier. Lesa Zuluaga, PT [address], [place], [address], [facility] 06/26/2024 12:45:32
[2024-08-28 11:05] LABS: MANUAL DIFF FLAG NO
[2024-08-28 11:14] LABS: Basophils Absolute Auto 0.1 X10*3/uL (0.0-0.2); Basophils Percent Auto 0.9 % (0-2); Eosinophils Absolute Auto 0.2 X10*3/uL (0.0-0.4); Eosinophils Percent Auto 3.1 % (0-4); Hematocrit 45.2 % (42.0-52.0); Hemoglobin 14.7 g/dl (14.0-18.0); Imm Gran Abs Auto 0.02 X10*3/uL (0.00-0.03); Imm Gran Pct Auto 0.3 % (0.0-0.4); Lymphocytes Absolute Auto 2.2 X10*3/uL (1.2-4.9); Lymphocytes Percent Auto 37.3 % (20-40); Mean Corpuscular HGB Conc 32.5 g/dl (31.0-36.0); Mean Corpuscular Hemoglobin 28.8 pg (27.0-33.0); Mean Corpuscular Volume 88.6 fL (80.0-98.0); Mean Platelet Volume 10.5 fL (9.4-12.4); Monocytes Absolute Auto 0.3 X10*3/uL (0.1-1.2); Monocytes Percent Auto 5.2 % (2-11); Neutrophils Absolute Auto 3.1 x10*3/uL (2.0-8.3); Neutrophils Percent Auto 53.2 % (45-73); Platelet Count 242 X10*3/uL (160-400); Red Cell Distribution Width 16.1 % (11.0-16.0); White Blood Count 5.8 X10*3/uL (4.8-10.8)
[2024-08-28 11:50] LABS: Alanine Aminotransferase 22 U/L (0-40); Albumin Level 4.5 g/dL (3.5-5.0); Alkaline Phosphatase 65 U/L (39-117); Anion Gap 11 (12-20); Aspartate Amino Transferase 24 U/L (5-37); B Type Natriuretic Peptide 41 pg/mL (<100); Bilirubin Total 0.8 mg/dL (0.0-1.0); Blood Urea Nitrogen 25 mg/dL (9-16); Calcium 9.5 mg/dL (8.4-10.2); Carbon Dioxide 27 mmol/L (22-29); Chloride 108 mmol/L (96-108); Cholesterol 195 mg/dL (<200); Estimated Glomerular Filt Rate > 60; Glucose Random 116 mg/dL (60-115); HDL Cholesterol 62 mg/dL (>40); Iron 77 mcg/dL (45-160); LDL Cholesterol Calculated 105 mg/dL (<100); Magnesium 2.4 mg/dL (1.6-2.6); Percent Iron Saturation 29 % (15-50); Potassium 4.8 mmol/L (3.3-5.1); Sodium 141 mmol/L (135-145); Total Iron Binding Capacity 262 mcg/dL (228-428); Total Protein 6.9 g/dL (6.5-8.0); Triglycerides 142 mg/dL (<150); Unsaturated Iron Binding 185 ug/dL
[2024-08-28 11:55] LABS: Ferritin 199 ng/mL (20-250); Free T4 (Free Thyroxine) 0.85 ng/dL (0.71-1.85); Thyroid Stimulating Hormone 3.08 uIU/mL (0.32-4.0)
[2024-08-28 11:59] LABS: Folate 7.6 ng/mL (> or = 4.0); Vitamin B12 1106 pg/mL (200-900)
[2024-08-28 12:02] LABS: Uric Acid 4.3 mg/dL (3.4-7.0)
[2024-08-28 12:52] LABS: Estimated Average Glucose 100 mg/dL; Hemoglobin A1C 124.0253 umol/L; Hemoglobin A1c % 5.1 % (<6.0); Total Hemoglobin (HGBA1C) 3863.8304 umol/L
== END 2024-08-28 08:14 | disposition home or self-care (01) ==
LOC: HO.WFDLDS 08:13
PROVIDERS: Visit Provider Internal Medicine
DX: J43.1 Panlobular emphysema (principal); R06.09 Other forms of dyspnea; R91.8 Other nonspecific abnormal finding of lung field; I48.91 Unspecified atrial fibrillation; E78.00 Pure hypercholesterolemia, unspecified; Z13.1 Encounter for screening for diabetes mellitus
CPT/HCPCS: 36415; 80053; 80061; 82607; 82728; 82746; 83036; 83540; 83735; 83880; 84100; 84439; 84443; 84550; 85025; 99212

== ENCOUNTER 2024-08-28 08:22 | Outpatient (AMB) | payer MEDICARE, SELFPAY ==
--- NOTE | 2024-08-28 08:49 | MHC.OFFVIS ---
Vital Signs 08/28/24 08:50 Height 5 ft 11 in Weight 258 lb 8 oz BMI 36.0 BP 130/78 Blood Pressure Location Rt brachial Position Sitting Pulse 62 Pulse Source Pulse Oximeter Pulse Oximetry (%) 95 Oxygen Delivery Method Room Air Intake Visit Reasons: Sleep apnea Allergies bacitracin Allergy (Intermediate, Verified 08/28/24 08:53) rash hydrochlorothiazide Adverse Reaction (Intermediate, Unverified 08/28/24 08:53) leg cramps amlodipine Adverse Reaction (Intermediate, Uncoded 08/28/24 08:53) leg swelling HPI HPI Sleep apnea: Details: Keaton is a pleasant 74-year-old male, former smoker, quit 20 years ago with approximately 60 pack-year history, with underlying mild COPD, hypertension, atrial fib on Eliquis, CHF under the care of [facility] cardiology, and obstructive sleep apnea on CPAP therapy monitored by sleep medicine. He is prescribed Wixela 250 mcg using 1 inhalation daily often misses the second dose, with moderate effect. He continues to report dyspnea on exertion otherwise denies cough, wheezing or chest tightness. He is under the care of cardiology and awaiting ablation for atrial fibrillation. He has been reportedly compliant with lasix, denies orthopnea, PND or BLE edema. At the last visit, repeat chest CT ordered to assess for resolution of PNA and presents to review results today. [facility] Medical History (Updated 08/28/24 @ 09:23 by Xin Dodson NP) Obstructive sleep apnea Screening for colon cancer Hypersomnia COVID-19 virus infection Otitis media Impacted cerumen of left ear Cerumen impaction Preoperative clearance COVID-19 virus infection Fever and chills Cervical radiculopathy Thrombophlebitis leg superficial Lumbar degenerative disc disease Fatty liver Osteoarthritis Carpal tunnel syndrome BPH (benign prostatic hyperplasia) Vitamin D deficiency Hypertension Obesity (BMI 30-39.9) COPD (chronic obstructive pulmonary disease) Gout Impaired glucose tolerance Peripheral vascular disease Surgical History (Updated 05/29/24 @ 10:15 by MINE Borrero) History of total knee replacement History of back surgery History of back surgery History of colonoscopy History of varicose vein stripping History of right knee surgery History of elbow surgery History of removal of cyst History of carpal tunnel release Family History Father Lung cancer Brain cancer Mother No problems noted. Paternal Uncle Brain cancer Lung cancer Social History Housing: House Alcohol intake: current Alcohol intake frequency: 0-2 drinks per day Alcohol type: beer Comment: 2 drinks a day, QOD 2 drinks Patient Tobacco Use Status: Former Tobacco user Tobacco use type: Cigarette Years Smoked: quit 2004 e-Cigarette/Vaping Use: Never Used Second Hand Smoke Exposure: No service: No Current occupational status: retired Cognitive needs: No Hearing needs: No Vision needs: No Review of Systems Const Denies chills, Denies excessive sweating, Denies fever(s), Denies headache(s) and Denies night sweats Eyes Denies dry eyes, Denies irritation and Denies itchy eyes ENT Reports Normal hearing present, Denies headache(s), Denies nasal congestion, Denies nasal discharge, Denies post nasal drip and Denies sore throat Card Denies chest pain, Denies chest pain at rest, Denies chest pain with activity, Denies claudication, Denies leg edema, Denies orthopnea and Denies paroxysmal nocturnal dyspnea Resp Denies chest congestion, Denies cough, Denies excessive phlegm production, Denies pain on inspiration, Denies pain with cough, Denies stridor and Denies wheezing Musc Denies myalgias Neuro Reports Normal hearing present and Denies headache(s) Endo Denies excessive sweating Prosper/Lymph Denies lymphadenopathy Aller/Immun Denies itchy eyes, Denies seasonal rhinorrhea and Denies wheezing Physical Exam Vital Signs: Last Vital Signs Pulse 62 08/28/24 08:50 BP 130/78 08/28/24 08:50 Pulse Ox 95 08/28/24 08:50 Oxygen Delivery Method Room Air 08/28/24 08:50 BMI result Body Mass Index 36.0 Const General: cooperative, healthy appearing, comfortable, no acute distress, well developed and alert Nutritional Appearance: obese Orientation/consciousness: patient oriented x3 Limitations: no limitations HEENT Head: Yes normal to inspection, Yes normocephalic and Yes atraumatic Ears: hearing grossly normal bilaterally and external ears normal Eyes General: appearance normal, both eyes and all related structures Eyelids: Yes eyelids normal Sclerae: sclerae normal EOM: EOMs intact bilaterally Neck Neck: Yes normal visual inspection and Yes no lymphadenopathy Lymphatic: no lymphadenopathy noted Chest Chest palpation & inspection: normal inspection of the chest Resp Effort & Inspection: normal respiratory effort, able to speak in complete sentences, no audible wheezes, no cough, no stridor, not tachypneic, no tripod positioning and no use of accessory muscles Auscultation: diminished lung sounds Cardio Jugular venous distension: no JVD Rate: regular rate Rhythm: regular rhythm Skin Other: warm, dry General skin exam: no rashes or lesions noted Neuro General: patient oriented x3 Cranial nerves: Yes Normal hearing present Cognition (Neuro): normal cognition Gait exam (Neuro): Normal gait present Extrem General: Yes normal to inspection, Yes capillary refill normal, Yes no clubbing, cyanosis or edema and Yes no pedal edema Psych Appearance: grossly normal and well kempt Speech and movement: Normal speech and movement present and Clear speech present Affect: normal affect Attitude: cooperative Thought process: Normal thought process present Thought content: Normal thought content present Insight: Good insight present (Psych) Judgement: Good judgement present (Psych) Results Reviewed Results Reviewed: [place] [address] CT Scan Report Signed Patient: Kaeton Connor MR#: [id number] : 1950 Acct:[id number] Age/Sex: 74 / M ADM Date: 07/30/24 Loc: .CT Attending Dr: Xin Dodson NP Ordering Physician: Xin Dodson NP Date of Service: 07/30/24 Procedure(s): CT chest wo IV con Accession Number(s): [id number] cc: Zaid Barrett MD; Xin Dodson NP~ Report Number: [id number]: Total DLP = 317.00 mGy-cm CLINICAL HISTORY: Z87.01 - Personal history of pneumonia (recurrent) CT chest without contrast Comparison: None Findings: No mediastinal mass or lymphadenopathy. No cardiomegaly. Moderate calcified coronary artery disease. Normal size thoracic aorta with moderate calcified atherosclerotic disease. Mild paraseptal and centrilobular emphysema. Subsegmental atelectasis and/or linear scarring. Calcified granuloma. Pulmonary nodules measure up to 5 mm. No pneumothorax or pleural effusion. No acute osseous or soft tissue abnormality. Focal intrahepatic biliary ductal dilatation in the left lobe of the liver. Impression: No acute findings. Pulmonary nodules measuring up to 5 mm, likely infectious/inflammatory. No follow-up is required in low risk individuals. High risk individuals have the option of a 1 year follow-up chest CT. Focal intrahepatic biliary ductal dilatation in the left lobe of the liver of uncertain etiology. This can be further evaluated with MR/ MRCP. This document has been electronically signed by: Dottie Gong MD on 07/30/2024 15:21:49 Dictated By: Dottie Garcia MD Signed By: <Electronically signed by Dottie Garcia MD in OV> 07/30/24 1522 DD/ 1521 TD/TT: 07/30/24 1521 Courtroom Clerk: Assessment & Plan Assessment & Plan (1) COPD (chronic obstructive pulmonary disease): Code(s): J44.9 - Chronic obstructive pulmonary disease, unspecified Category: Medical Qualifiers: COPD type: emphysema Emphysema type: panlobular Qualified Code(s): J43.1 - Panlobular emphysema (2) Dyspnea on exertion: Code(s): R06.09 - Other forms of dyspnea Category: Medical (3) Multiple pulmonary nodules: Code(s): R91.8 - Other nonspecific abnormal finding of lung field Category: Medical Plan Encouraged patient to use Wixela BID, as prescribed. Discussed switching inhalers however patient would like to hold off at this time and attempt to be more compliant with Wixela. He is aware to call if symptoms become less controlled. Reviewed chest CT which revealed resolution of PNA, pulmonary nodules measuring up to 5 mm, will repeat in one year to assess stability. There was an incidenal finding of focal intrahepatic biliary ductal dilatation in the left lobe of the liver of uncertain etiology with recommendation for further evaluatation with MR/ MRCP. Patient has upcoming appt with GI. All questions were answered and patient is in agreement of plan. Will follow-up in 3 months or sooner if needed. Orders: Orders CT chest wo IV con 11 Months R91.8 - Other nonspecific abnormal finding of lung field Coding Level of Care Code Est Pt Level 4 (33180) Diagnoses Panlobular emphysema J43.1 COPD type: emphysema Emphysema type: panlobular Dyspnea on exertion R06.09 Multiple pulmonary nodules R91.8
[2024-08-28 08:50] VITALS: BP 130/78; PULSE 62; O2SAT 95; BMI 36.0
== END 2024-08-28 09:20 | disposition home or self-care (01) ==
LOC: HO.HPSW 08:23
PROVIDERS: PCP Internal Medicine; Visit Provider Nurse Practitioner Family
DX: J43.1 Panlobular emphysema (principal); R06.09 Other forms of dyspnea; R91.8 Other nonspecific abnormal finding of lung field
CPT/HCPCS: 99214

== ENCOUNTER 2024-09-04 10:31 | Outpatient (AMB) | payer MEDICARE, SELFPAY ==
[2024-09-04 10:33] VITALS: BP 120/62; PULSE 59; O2SAT 97; BMI 36.3
--- NOTE | 2024-09-04 10:33 | A.OFFPC_ITS ---
Vital Signs 09/04/24 10:33 Height 5 ft 11 in Weight 260 lb 8 oz BMI 36.3 BP 120/62 Blood Pressure Location Lt brachial Position Sitting Pulse 59 Pulse Source Pulse Oximeter Pulse Oximetry (%) 97 Oxygen Delivery Method Room Air Intake Visit Reasons: MONIQUE, HTN, afib Service Dismantler Required: No Accompanied by: Self / Same As Patient Allergies bacitracin Allergy (Intermediate, Verified 09/04/24 10:34) rash hydrochlorothiazide Adverse Reaction (Intermediate, Verified 09/04/24 10:34) leg cramps amlodipine Adverse Reaction (Intermediate, Uncoded 09/04/24 10:34) leg swelling Tobacco use date assessed: 09/04/24 Fall risk assessment: No Falls in past year Last assessed Fall Risk: 09/04/24 Dental Screening Dental Screen Date: 09/04/24 Did you have a dental visit in the last 12 months?: Yes Did you have a dental problem in the last 6 months where you did not have access to dental care?: No Was dental information given to patient?: Patient has dentist [facility] Medical History (Updated 08/28/24 @ 09:23 by Xin Dodson NP) Obstructive sleep apnea Screening for colon cancer Hypersomnia COVID-19 virus infection Otitis media Impacted cerumen of left ear Cerumen impaction Preoperative clearance COVID-19 virus infection Fever and chills Cervical radiculopathy Thrombophlebitis leg superficial Lumbar degenerative disc disease Fatty liver Osteoarthritis Carpal tunnel syndrome BPH (benign prostatic hyperplasia) Vitamin D deficiency Hypertension Obesity (BMI 30-39.9) COPD (chronic obstructive pulmonary disease) Gout Impaired glucose tolerance Peripheral vascular disease Surgical History History of total knee replacement History of back surgery History of back surgery History of colonoscopy History of varicose vein stripping History of right knee surgery History of elbow surgery History of removal of cyst History of carpal tunnel release Family History Father Lung cancer Brain cancer Mother No problems noted. Paternal Uncle Brain cancer Lung cancer Social History Housing: House Alcohol intake: current Alcohol intake frequency: 0-2 drinks per day Alcohol type: beer Comment: 2 drinks a day, QOD 2 drinks Patient Tobacco Use Status: Former Tobacco user Tobacco use type: Cigarette Years Smoked: quit 2004 e-Cigarette/Vaping Use: Never Used Second Hand Smoke Exposure: No service: No Current occupational status: retired Cognitive needs: No Hearing needs: No Vision needs: No Questionnaire PHQ-9 Over the last 2 weeks, how often have you been bothered by any of the following problems? 1. Little interest or pleasure in doing things: not at all 2. Feeling down, depressed, or hopeless: not at all 3. Trouble falling or staying asleep, or sleeping too much: not at all 4. Feeling tired or having little energy: not at all 5. Poor appetite or overeating: not at all 6. Feeling bad about yourself - or that you are a failure or have let yourself or your family down: not at all 7. Trouble concentrating on things, such as reading the newspaper or watching television: not at all 8. Moving or speaking so slowly that other people could have noticed. Or the opposite - being so fidgety or restless that you have been moving around a lot more than usual: not at all 9. Thoughts that you would be better off or of hurting yourself in some way: not at all Total score: 0 Source: Developed by Drs. Abiel Preez, Ceci Foss, Leonel Ram and colleagues, with an educational niurka from [employer]. Thrive Questionnaire Date Thrive assessed: 09/04/24 I am a: Patient What is your living situation today?: I have a steady place to live Within the past 12 months, did the food you bought not last and you didn't have the money to get more?: Never true Within the past 12 months, did you worry whether your food would run out before you got money to buy more?: Never true Do you have trouble paying for medicines?: No Do you have trouble getting transportation to medical appointments?: No Do you have trouble paying your heating and electricity bill?: No Do you have trouble taking care of your child, family member or friend?: No Do you have trouble with day-to-day activities such as bathing, preparing meals, shopping, managing finances, etc.?: No Are you currently unemployed and looking for a job?: No Are you interested in more education?: No Please select the resources that you would like help with: None Currently or been in a relationship where the following occur: I choose not to answer THRIVE Score: 0 AUDIT C Alcohol Use Questionnaire (AUDIT-C) 1. How often do you have a drink containing alcohol?: 2-3 times a week 2. How many drinks containing alcohol do you have on a typical day when you are drinking?: 1 or 2 3. How often do you have six or more drinks on one occasion?: Never Total Score: 3 ZACHARY-7 AMB Questionnaire ZACHARY-7 Date ZACHARY - 7 assessed: 09/04/24 Feeling nervous, anxious, or on edge: 0 = Not at all Not being able to stop or control worryin = Not at all Worrying too much about different things: 0 = Not at all Trouble relaxin = Not at all Being so restless that it is hard to sit still: 0 = Not at all Becoming easily annoyed or irritable: 0 = Not at all Feeling afraid as if something awful might happen: 0 = Not at all Total ZACHARY-7 score (0-4 normal; 5-9 mild; 10-14 moderate; 15-21 severe): 0 Source: Developed by Drs. Abiel Perez, Ceci Foss, Leonel Ram and colleagues, with an educational niurka from [employer]. Physical exam (Primary Care) Vital Signs: Last Vital Signs Pulse 59 09/04/24 10:33 BP 120/62 09/04/24 10:33 Pulse Ox 97 09/04/24 10:33 Oxygen Delivery Method Room Air 09/04/24 10:33 BMI result Body Mass Index 36.3 Tobacco/Smoking Status: Tobacco use Status Tobacco use date assessed 09/04/24 09/04/24 10:35 Patient Tobacco Use Status Former Tobacco user 09/04/24 10:35 Tobacco use type Cigarette 09/04/24 10:35 e-Cigarette/Vaping Use Never Used 09/04/24 10:35 PHQ-9: PHQ-9 Score PHQ-9: Total score 0 09/04/24 11:20 Thrive Assessment: Date of Thrive Assessment Date Thrive assessed 09/04/24 09/04/24 10:35 Currently or been in a relationship where the following occur: I choose not to answer Const General: alert; No acute distress Eyes Conjunctivae: conjunctivae normal Resp Auscultation: clear to auscultation bilaterally Cardio Rate: regular rate Rhythm: regular rhythm GI Inspection: Yes normal to inspection Extrem General: Yes normal to inspection and No edema Coding Level of Care Code Est Pt Level 4 (42035) Complex EM visit Add On G2211 Diagnoses Multiple pulmonary nodules R91.8 Dilated intrahepatic bile duct K83.8 Atrial fibrillation I48.91 Severe obstructive sleep apnea G47.33 Essential hypertension I10 Hypertension type: essential hypertension Obesity (BMI 30-39.9) E66.9 Panlobular emphysema J43.1 COPD type: emphysema Emphysema type: panlobular Impaired glucose tolerance R73.02 Spinal stenosis of lumbar region with neurogenic claudication M48.062 Neurogenic claudication status: with neurogenic claudication Assessment & Plan Assessment & Plan (1) Multiple pulmonary nodules: Code(s): R91.8 - Other nonspecific abnormal finding of lung field Category: Medical Plan: Patient is being followed up by Pulmonary and repeat CT scan of the chest in 1 year (2) Dilated intrahepatic bile duct: Code(s): K83.8 - Other specified diseases of biliary tract Category: Medical Plan: CT scan has been requested and gastroenterology follow-up pending (3) Atrial fibrillation: Code(s): I48.91 - Unspecified atrial fibrillation Category: Medical Plan: Patient is to continue with anticoagulation and continuing to monitor blood work. awaiting ablation with cardiology (4) Severe obstructive sleep apnea: Comment: Sleep titration study done January 2023 moderately severe obstructive sleep apnea with nocturnal hypoxemia. Bilevel pressure of 16/6 cms fullface mask large heated humidification Code(s): G47.33 - Obstructive sleep apnea (adult) (pediatric) Category: Medical Plan: Continue to use the CPAP more than 4 hours a night and benefits from this (5) Hypertension: Code(s): I10 - Essential (primary) hypertension Category: Medical Qualifiers: Hypertension type: essential hypertension Qualified Code(s): I10 - Essential (primary) hypertension Plan: Continue with blood pressure medication. Decrease salt intake and exercise on benazepril 40 mg once a day and metoprolol 25 mg once a day (6) Obesity (BMI 30-39.9): Code(s): E66.9 - Obesity, unspecified Category: Medical Plan: Diet and exercise (7) COPD (chronic obstructive pulmonary disease): Code(s): J44.9 - Chronic obstructive pulmonary disease, unspecified Category: Medical Qualifiers: COPD type: emphysema Emphysema type: panlobular Qualified Code(s): J43.1 - Panlobular emphysema Plan: Continue with Wixela and to use it regularly. (8) Impaired glucose tolerance: Code(s): R73.02 - Impaired glucose tolerance (oral) Category: Medical Plan: Decrease the amount of carbohydrate intake, pasta, bread, rice and potatoes are all sugar and that is aside from all the sweet stuff, remember that fruits are good but they are Sweet also. (9) Lumbar spinal stenosis: Comment: Dr. Borjas August 2020 L3 for laminotomy, decompression facetomy partial L3-L4 Code(s): M48.061 - Spinal stenosis, lumbar region without neurogenic claudication Category: Medical Qualifiers: Neurogenic claudication status: with neurogenic claudication Qualified Code(s): M48.062 - Spinal stenosis, lumbar region with neurogenic claudication Plan History of Present Illness The patient is a 74-year-old male presenting with a follow-up visit for multiple chronic conditions. He has a history of atrial fibrillation, COPD, hypertension, and impaired glucose tolerance. Additionally, the patient suffers from severe obstructive sleep apnea, and a current issue with left lower quadrant abdominal pain warrants evaluation. His pain is described as persistent but not severe; he notes it becomes more noticeable with palpation. The patient's last routine evaluations, inclusive of blood work, showed stable results from August 28, with all levels in normal ranges except for a slightly elevated fasting glucose at 116, although his hemoglobin A1c remains normal, indicating stable glucose control over a longer duration. The patient actively uses CPAP for sleep apnea and adheres to prescribed medication regimens for other conditions. Health Maintenance - Colonoscopy up to date as of January 2023 with follow-up advised in 5-7 years. - Blood work performed on August 28 was within normal limits. - Continuation of CPAP usage for more than four hours per night for management of obstructive sleep apnea. - Regular medication adherence including benazepril, metoprolol, and Wixela. Social History - Reports regular CPAP usage for sleep apnea. - Emphasized adherence to prescribed medical regimens and ongoing exercise and diet modifications. Review of Systems - Cardiovascular: Reports atrial fibrillation. - Respiratory: Reports COPD and obstructive sleep apnea. - Gastrointestinal: Reports left lower quadrant abdominal tenderness. - Endocrine: Reports impaired glucose tolerance. Physical Exam Results - Labs: Blood work from August 28 indicated normal blood counts, stable renal and liver function, and normal uric acid, calcium, electrolytes, magnesium, and thyroid levels. Fasting blood sugar was 116, with normal hemoglobin A1c. - Tests: Colonoscopy in January 2023. - Pending: CAT scan to evaluate left lower quadrant pain and follow-up for pulmonary nodule. Plan The management plan focuses on the continued pharmacological treatment and lifestyle modifications for chronic conditions such as atrial fibrillation, managed through anticoagulation therapy. The patient's COPD management involves regular use of prescribed inhalers, while hypertension control is achieved through a combination of antihypertensives. The mild elevation in fasting glucose will be reassessed, considering the normal A1c levels. The patient will maintain regular use of CPAP for managing obstructive sleep apnea symptoms. Left lower quadrant abdominal pain will be further evaluated with a pending CAT scan, and consults with gastroenterology and pulmonary specialists are scheduled to ensure comprehensive care. Follow-ups remain crucial for monitoring, assessing response to treatment, and preventing complications. Patient was informed and verbally consented to the use of an ambient scribe for clinic note documentation during this visit. Discussion Notes I reviewed with the patient the importance of ongoing management of chronic conditions and the roles that medications and lifestyle modifications play. We discussed the effectiveness of current regimens, including the benefits of antidepressants for atrial fibrillation and the importance of maintaining consistent blood pressure. I highlighted the need for strict glucose monitoring given the slight elevation in fasting glucose levels. Furthermore, I emphasized the importance of CPAP therapy in managing obstructive sleep apnea and addressed the implications of the patient's upcoming CAT scan in evaluating the abdominal pain and pulmonary nodules. Follow-up plans include monitoring via further diagnostic evaluations and consultations. Patient Instructions - Continue taking all prescribed medications daily as instructed. - Use CPAP machine for at least 4 hours every night to manage sleep apnea. - Monitor blood glucose regularly and maintain a healthy diet and exercise regimen to manage glucose levels. - Adhere to follow-up appointments with pulmonology and gastroenterology for ongoing evaluations. - Report any significant changes or worsening in symptoms, especially concerning abdominal pain or new respiratory issues. - Stay up to date with colonoscopy surveillance as previously scheduled. - Notify the clinic of any issues or changes in health status immediately. Medications: Refilled tramadol 50 mg PO TID PRN 90 tabs 1RF pain M17.0 - Bilateral primary osteoarthritis of knee, M51.36 - Other intervertebral disc degeneration, lumbar region
--- OUTSIDE RECORDS SUMMARY | 2024-09-04 12:08 | XMS_ITS | Data Portability ---
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 Name Role Phone LIANA LOVING Primary Care [...] a4ajBk vP9nXo QUaueC m3YtLR FvZlgJ JJ8mAn HZtai3 [id number] AC0Kqb HqAVKa kKiQtr MwF INTERFACE [facility] [address], [place], [address], 05/15/2024 15:11:33 05/15/19 25 05/15/2024 XR, knee, 3 view http:/ [email or web address] ?Encry pted=s hAaTro YD8dLq bEUv6g %2BXZw aYqtaq 0bqfl% 2Fg9IQ a4ajBk vP9nXo QUaueC m3YtLR FvZlgJ JJ8[place] HZtai3 [id number] AC0Kqb HqAVKa kKiQtr MwF INTERFACE [facility] [address] [facility] [address] [facility] [address], [place], [address], 05/15/2024 15:11:35 Result Notes None recorded. Problems Name Problem SNOMED Code Status Onset Date Resolution Date Notes Provider Name and Address Organization Details Recorded Time Osteoarthritis of knee 505999179 Active 2023 Lesa Zuluaga, PT [address], [place], [address], [facility] 4 18:09:32 Problem Notes None recorded. Procedures Surgical History Date Name Laterality Status Provider Name and Address Organization Details Recorded Time 5 58139 Therapeutic Exercise (1:1) completed Lesa Zuluaga, PT [address], [place], [address], [facility] 05/05/2024 15:06:41 5 28803 Therapeutic Exercise (1:1) completed Lesa Zuluaga PT [address], [place], [address], [facility] 04/23/2024 11:19:25 5 75085: Hot or Cold Pack completed Lesa Zuluaga, PT [address], [place], [address], [facility] 04/23/2024 11:19:25 5 73089 Therapeutic Exercise (1:1) completed Lesa Zuluaga, PT [address], [place], [address], [facility] 04/19/2024 16:29:11 5 84048: Hot or Cold Pack completed Lesa Zuluaga, PT [address], [place], [address], [facility] 04/20/2024 16:16:51 5 68566 Therapeutic Exercise (1:1) completed Lesa Zuluaga, PT [address], [place], [address], [facility] 04/16/2024 14:59:19 5 81575 Therapeutic Exercise (1:1) completed Neto Mandel, SET UP [employer] [address], [place], [address], [facility] 04/12/2024 14:13:47 5 39416: Hot or Cold Pack completed Neto Mandel, [employer] [address], [place], [address], [facility] 04/12/2024 14:13:47 5 32447 Therapeutic Exercise (1:1) completed Neto Mandel, [employer] [address], [place], [address], [facility] 04/09/2024 15:05:27 5 63082: Hot or Cold Pack completed Neto Mandel, [employer] [address], [place], [address], [facility] 04/09/2024 15:05:27 5 07892 Therapeutic Exercise (1:1) completed Lesa Zuluaga, PT [address], [place], [address], [facility] 04/05/2024 13:23:55 5 68881: Hot or Cold Pack completed Lesa Zuluaga, PT [address], [place], [address], [facility] 04/05/2024 13:23:55 4 58348 Therapeutic Exercise (1:1) completed Neto Mandel [employer] [address], [place], [address], [facility] 04/03/2024 10:13:08 4 34612: Hot or Cold Pack completed Neto Mandel [employer] [address], [place], [address], [facility] 04/02/2024 15:05:59 4 72260 Therapeutic Exercise (1:1) completed Ketan Pitt PT [address], [place], [address], [facility] 03/29/2024 12:15:50 4 53255: Hot or Cold Pack completed Ketan Pitt PT [address], [place], [address], [facility] 03/29/2024 12:11:12 4 09771 Therapeutic Exercise (1:1) completed Neto Mandel PTA [address], [place], [address], [facility] 03/27/2024 11:27:07 4 99186: Manual therapy completed Neto Mandel [employer] [address], [place], [address], [facility] 03/26/2024 13:10:59 4 83461 Therapeutic Exercise (1:1) completed Lesa Wing, PT [address], [place], [address], [facility] 03/20/2024 12:36:38 4 46058: Hot or Cold Pack completed Lesa Wing, PT [address], [place], [address], [facility] 03/21/2024 12:33:04 4 62790: Manual therapy completed Lesa Wing, PT [address], [place], [address], [facility] 03/20/2024 12:36:38 4 01220 Therapeutic Exercise (1:1) completed Lesa Wing, PT [address], [place], [address], [facility] 03/19/2024 11:30:52 4 66780: Manual therapy completed Lesa Wing, PT [address], [place], [address], [facility] 03/19/2024 11:30:46 4 43527 Therapeutic Exercise (1:1) completed Lesa , PT [address], [place], [address], [facility] 03/09/2024 08:41:38 4 90686: PT re-eval completed Lesa Wing, PT [address], [place], [address], [facility] 03/16/2024 11:17:41 4 90730 Therapeutic Exercise (1:1) completed Lesa Wing, PT [address], [place], [address], [facility] 02/05/2024 18:14:03 4 11854: Low complexity PT Eval completed Lesa , PT [address], [place], [address], [facility] 02/05/2024 18:14:09 Imaging Results None recorded. [...] Status Never Smoker CHYNA kilgore [place] - [place] [facility] 04/05/2024 09:12:07 Have You Ever Been [...] Response Allergies/Hayfever N Coronary Artery Disease N Breathing or lung disorders N Anxiety/Depression N Emphysema N Nerve Disorders N Thyroid Problems N COPD Y Pacemaker N Kidney/Bladder Problems N Anemia N Vascular Disease N Heart Trouble N Gastrointestinal Disease N Heart Attack ([place]) N Cholesterol N Diabetes N Autoimmune disease [...] SNOMED-CT Code Diagnosis ICD10 Code Diagnosis Note [id number] YAAKOV Cheney [address] floor [address] [place] [address] 12/15/2023 08:59:46 01/05/2024 15:26:18 Pain of left knee joint 9679802671 40272 M25.562 Bilateral osteoarthritis of knees 6649078822 54739 M17.0 [id number] MD Raymundo Lomax [facility] [address] [place] [address] 01/19/2024 08:51:42 02/09/2024 15:01:49 Primary gonarthrosis, bilateral 348494382 M17.0 [id number] Lesajayson Zuluaga, PT [facility] [address] [place] [address] 02/06/2024 14:52:23 02/06/2024 15:21:31 Osteoarthritis of knee 817461588 M17.12 [id number] Ozzy Weir, [employer] [address] [place] [address] 02/27/2024 09:19:55 03/23/2024 04:04:43 [id number] Lesa Zuluaga, PT [facility] [address] [place] [address] 03/16/2024 10:26:08 03/16/2024 10:51:40 History of left total knee replacement 1513349109 699353 Z96.652 Z47.1 [id number] Lesa Zuluaga, PT [facility] [address] [place] [address] 03/19/2024 10:52:25 03/19/2024 11:33:58 History of left total knee replacement 4051774449 703986 Z96.652 Z47.1 [id number] DINAH LaraC [address] [place] [address] 03/19/2024 09:16:29 04/10/2024 10:47:33 Implantation of joint prosthesis 23812614 Z47.1 Knee joint prosthesis present 3636158335 02 Z96.805 [id number] Lesa Zuluaga, PT [facility] [address] [place] [address] 03/21/2024 10:47:45 03/21/2024 12:07:21 History of left total knee replacement 3556237298 851851 Z96.652 Z47.1 [id number] Neto Mandel, [employer] [facility] [address] [place] [address] 03/27/2024 10:04:30 03/27/2024 11:02:14 History of left total knee replacement 0515098196 972995 Z96.652 Z47.1 [id number] Ketan Pitt, PT [facility] [address] [place] [address] 03/29/2024 11:15:07 03/29/2024 12:50:56 History of left total knee replacement 6264989846 457770 Z96.652 Z47.1 [id number] Neto Mandel, [employer] [facility] [address] [place] [address] 04/03/2024 09:21:03 04/03/2024 10:18:47 History of left total knee replacement 1332860554 461137 Z96.652 Z47.1 [id number] YAAKOV Pearl [facility] [address] [place] [address] 04/05/2024 09:07:37 04/19/2024 11:25:30 Aftercare 629400981 Z51.89 Implantati on of joint prosthesis 38409032 Z47.1 [id number] Lesa , PT [facility] - [facility] [address] [place] [address] 04/06/2024 11:12:02 04/06/2024 13:57:26 History of left total knee replacement 6156278443 445855 Z96.652 Z47.1 [id number] Neto Peguerodavidkristal, [employer] [facility] [address] [place] [address] 04/10/2024 08:25:09 04/10/2024 10:07:07 History of left total knee replacement 1988810729 302227 Z96.652 Z47.1 [id number] Neto Mandel, [employer] [facility] - [facility] [address] [place] [address] 04/13/2024 14:16:22 04/13/2024 14:39:52 History of left total knee replacement 1134088194 842081 Z96.652 Z47.1 [id number] Lesa Wing, PT [facility] - [facility] [address] [place] [address] 04/17/2024 15:44:31 04/18/2024 07:27:46 History of left total knee replacement 6325381931 828640 Z96.652 Z47.1 [id number] Isabell Santiago PA-C [facility] [address] [place] [address] 04/19/2024 09:52:09 05/04/2024 03:58:35 [id number] Dave Alcantara MD [facility] - [address] [place] [address] 04/19/2024 10:17:32 05/01/2024 08:38:08 Osteoarthritis of right knee joint 8083909913 69476 M17.11 [id number] Lesa Wing, PT [facility] - [facility] [address] [place] [address] 04/20/2024 15:38:01 04/23/2024 07:06:06 History of left total knee replacement 7115208303 660879 Z96.652 Z47.1 [id number] Lesa Wing, PT [facility] - [facility] [address] [place] [address] 04/23/2024 13:11:48 04/23/2024 14:21:41 History of left total knee replacement 4548886175 376372 Z96.652 Z47.1 [id number] Lesa Wing, PT [facility] - [facility] [address] [place] [address] 05/09/2024 17:05:45 05/09/2024 18:01:41 History of right total knee replacement 9402976447 253899 Z96.651 Z47.1 [id number] Skyla Last PA-C [facility] [address] [place] [address] 05/09/2024 13:10:45 05/18/2024 08:56:59 Postoperative visit 052652528 Z48.89 Knee joint prosthesis present 3899878422 02 Z96.022 [id number] Neto Mandel, [employer] [facility] [address] [place] [address] 05/16/2024 10:33:45 05/16/2024 12:08:06 History of right total knee replacement 7409423239 355508 Z96.651 Z47.1 [id number] Jl Polanco PA-C [facility] [address] [place] [address] 05/15/2024 14:39:03 06/01/2024 07:47:03 Pain of right knee region 2600200000 71281 M25.561 Osteoarthr itis of right knee joint 5880411955 38059 M17.11 [id number] Neto Flakitoman [employer] [facility] [address] [place] [address] 05/18/2024 10:38:47 05/18/2024 11:10:36 History of right total knee replacement 0036757916 169581 Z96.651 Z47.1 [id number] Lesa Zuluaga, PT [facility] [address] [place] [address] 05/23/2024 11:20:48 05/23/2024 14:47:05 History of right total knee replacement 2204386669 210140 Z96.651 Z47.1 [id number] Lesa Zuluaga, PT [facility] [address] [place] [address] 05/25/2024 09:37:03 05/25/2024 12:35:17 History of right total knee replacement 8381931839 252893 Z96.651 Z47.1 [id number] Jodie Lynch, [employer] [facility] - [facility] [address] [place] [address] 05/28/2024 16:12:33 05/28/2024 17:16:00 History of right total knee replacement 7405388492 877395 Z96.651 Z47.1 [id number] Jl Polanco PA-C [facility] [address] [place] [address] 05/29/2024 15:34:46 06/14/2024 08:18:08 Osteoarthritis of right knee joint 2066808655 22301 M17.11 Triggering of digit 2399 49879 M65.855 [id number] Neto Mandel, [employer] [facility] [address] [place] [address] 05/31/2024 10:16:50 05/31/2024 12:06:43 History of right total knee replacement 1955242303 680309 Z96.651 Z47.1 [id number] Jodie Lynch, [employer] [facility] [address] [place] [address] 06/05/2024 10:13:10 06/05/2024 11:33:05 History of right total knee replacement 0886722196 555686 Z96.651 Z47.1 [id number] Lesa Zuluaga, PT [facility] [address] [place], [place] 0 06/07/2024 10:18:43 06/07/2024 11:29:52 History of right total knee replacement 1200239026 652785 Z96.651 Z47.1 [id number] Neto Mandel [employer] [facility] [address] [place] [address] 06/12/2024 10:21:55 06/12/2024 11:47:13 History of right total knee replacement 3474667826 093771 Z96.651 Z47.1 [id number] Lesa Wing, PT [facility] [address] [place] [address] 06/21/2024 10:50:23 06/21/2024 13:02:33 History of right total knee replacement 0258523438 443116 Z96.651 Z47.1 [id number] Lesa Wing, PT [facility] [address] [place] [address] 06/26/2024 10:18:40 06/26/2024 11:43:46 History of right total knee replacement 0662987130 543367 Z96.651 Z47.1 [id number] MD [facility] [address] [facility] [place] [address] 08/02/2024 08:53:04 08/09/2024 10:24:58 History of bilateral total knee replacement 5252009119 342191 Z96.653 Health Concerns Section Related Observation LastModified by Organization Detai ls LastModified Time None Recorded Concern Status LastModified by Organization Details LastModified Time None Recorded Advance Directives Directive None Recorded Payers Encounter Date Sequence Insurance Name Policy Number Policy Reyes Covered Member ID Reyes Member ID Guarantor Name 06/07/2024 1 [facility] (MEDICARE REPLACEMENT HMO) [id number] Edward C [place] [id number] Edward C Nikolas 06/12/2024 1 [facility] (MEDICARE REPLACEMENT HMO) [id number] Edward C [place] [id number] Edward C [place] 06/21/2024 1 [facility] (MEDICARE REPLACEMENT HMO) [id number] Edward C Nikolas [id number] Edward C [place] 06/26/2024 1 [facility] (MEDICARE REPLACEMENT HMO) [id number] Edward C [place] [id number] Edward C Nikolas 08/02/2024 1 [facility] (MEDICARE REPLACEMENT HMO) [id number] Edward C [place] [id number] Edward C [place] Notes Date Note Type Note Provider Name and Address Organization Details Recorded Time 06/07/2024 text/html Pt states that armando perez was able to walk a little more this weekend with minimal soreness in the knee. Lesa Zuluaga, PT [address], [place], [address], [place] - [facility] 06/07/2024 11:14:54 06/12/2024 text/html Pt states feelin g good with no complaints of pain or soreness,, states he feels like he's close to being ready for discharge. Neto Mandel, [employer] [address], [place], [address], [facility] 06/12/2024 11:52:34 06/21/2024 text/html Pt states he get s some soreness at the outer right knee area and even the left knee feels a bit tight with a pressure sensation every now and then. Lesa Zuluaga, PT [address], [place], [address], [facility] 06/21/2024 12:52:36 06/26/2024 text/html Pt states he has been getting around outdoors easier. Lesa Zuluaga, PT [address], [place], [address], [facility] 06/26/2024 12:45:32
== END 2024-09-04 12:05 | disposition home or self-care (01) ==
LOC: HO.HMCH 10:32
PROVIDERS: PCP Internal Medicine; Visit Provider Internal Medicine
DX: I48.91 Unspecified atrial fibrillation (principal); J43.1 Panlobular emphysema; R91.8 Other nonspecific abnormal finding of lung field; K83.8 Other specified diseases of biliary tract; G47.33 Obstructive sleep apnea (adult) (pediatric); I10 Essential (primary) hypertension; E66.9 Obesity, unspecified; R73.02 Impaired glucose tolerance (oral); M48.062 Spinal stenosis, lumbar region with neurogenic claudication

== ENCOUNTER → 2024-09-04 10:31 | Outpatient (BNVA) | payer MEDICARE, SELFPAY | PROVIDERS: PCP Internal Medicine; Visit Provider Internal Medicine | DX: G47.33 Obstructive sleep apnea (adult) (pediatric) (principal); I10 Essential (primary) hypertension; I48.91 Unspecified atrial fibrillation; R91.8 Other nonspecific abnormal finding of lung field; K83.8 Other specified diseases of biliary tract; E66.9 Obesity, unspecified; J43.1 Panlobular emphysema; R73.02 Impaired glucose tolerance (oral); M48.062 Spinal stenosis, lumbar region with neurogenic claudication; Z68.36 Body mass index [BMI] 36.0-36.9, adult | CPT/HCPCS: 96127; 99212 ==

== ENCOUNTER 2024-09-28 14:23 | Outpatient (REF) | payer MEDICARE, SELFPAY ==
--- NOTE | ~2024-09-28 | CT_ITS ---
EXAMINATION: CT ABDOMEN PELVIS WITH IV CONTRAST HISTORY: R10.32 - Left lower quadrant pain COMPARISON: Correlation is made with the upper abdominal images from a chest CT without contrast dated 07/22/2024. TECHNIQUE: CT scan of the abdomen and pelvis was performed following administration of 85 mL Omnipaque 350 using standard departmental protocol. Coronal and sagittal reformatted images were generated and reviewed. The patient received oral contrast material. This CT exam was performed with one or more of the following dose reduction techniques: automated exposure control, adjustment of the mA and/or kV according to patient size, use of iterative reconstruction technique. DLP: 724 mGy-cm FINDINGS: LOWER CHEST: The visualized lung bases are clear. There is no pleural effusion. CARDIOVASCULATURE: The heart is normal in size. There is no pericardial effusion. LIVER: The liver is normal in size and contour. There is dilatation of biliary radicles in the left lobe as seen on chest CT 07/22/2024. No liver mass is identified. The hepatic and portal veins are patent. GALLBLADDER / BILE DUCTS: The gallbladder is unremarkable. There is no intra or extrahepatic biliary ductal dilatation. SPLEEN: The spleen is normal in size. No focal splenic lesion is identified. PANCREAS: The pancreas is unremarkable in appearance. ADRENAL GLANDS: Within normal limits. KIDNEYS/RETROPERITONEUM: No renal calculi are identified. There is no hydronephrosis. Again seen are multiple bilateral renal parapelvic cysts. LYMPH NODES: No abdominal or pelvic lymphadenopathy. VASCULATURE: The abdominal aorta demonstrates atherosclerotic calcification, but is normal in caliber. MESENTERY/PERITONEUM: No free fluid. No masses. There is no free intraperitoneal gas. STOMACH: The stomach is unremarkable. SMALL BOWEL: The small bowel is normal in caliber. COLON: There is diverticulosis of the descending and sigmoid colon, without evidence of diverticulitis. APPENDIX: The appendix is not seen, however no inflammatory changes are seen adjacent to the cecum. URINARY BLADDER/PELVIC ORGANS: The urinary bladder is unremarkable. The prostate is enlarged. BONES / SOFT TISSUES: There is degenerative disc disease of the spine. CT/CT abdomen pelvis w IV con IMPRESSION: 1. Diverticulosis of the descending and sigmoid colon, without evidence of diverticulitis. 2. Dilatation of the left lobe of the liver as seen previously. MRI of the liver should be considered. Electronically signed by: Abiel Olsen MD 09/28/2024 03:24 PM EDT
--- OUTSIDE RECORDS SUMMARY | 2024-09-28 14:48 | XMS_ITS | Data Portability ---
Author Organization IVANNA - Antolin [facility]geons [facility], [facility] Address [address] [place] [address] Care Team Providers Care Storeroom Supervisor Name Role Phone LIANA LOVING Primary Care [...] of infection is to follow up immediately. Not available 08/02/2024 11:29:58 Plan of Treatment [...] a4ajBk vP9nXo QUaueC m3YtLR FvZlgJ JJ8mAn HZtai3 [id number] AC0Kqb HqAVKa kKiQtr MwF INTERFACE [facility] [place] [facility] [address], [place], [address], 05/15/2024 15:11:33 05/15/19 25 05/15/2024 XR, knee, 3 view http:/ [email or web address] ?Encry pted=s hAaTro YD8dLq bEUv6g %2BXZw aYqtaq 0bqfl% 2Fg9IQ a4ajBk vP9nXo QUaueC m3YtLR FvZlgJ JJ8mAn HZtai3 5t2471 AC0Kqb HqAVKa kKiQtr MwF INTERFACE [facility] [address] [facility] [facility] [address], [place], [address], 05/15/2024 15:11:35 Result Notes None recorded. Problems Name Problem SNOMED Code Status Onset Date Resolution Date Notes Provider Name and Address Organization Details Recorded Time Osteoarthritis of knee 417107604 Active 2023 Lesa Zuluaga, PT [address], [place], [address], [facility] 4 18:09:32 Problem Notes None recorded. Procedures Surgical History Date Name Laterality Status Provider Name and Address Organization Details Recorded Time 5 69964 Therapeutic Exercise (1:1) completed Lesa Zuluaga, PT [address], [place], [address], [facility] 05/05/2024 15:06:41 5 38967 Therapeutic Exercise (1:1) completed Lesa Wing, PT [address], [place], [address], [facility] 04/23/2024 11:19:25 5 88364: Hot or Cold Pack completed Lesa Zuluaga, PT [address], [place], [address], [facility] 04/23/2024 11:19:25 5 66215 Therapeutic Exercise (1:1) completed Lesa Zuluaga, PT [address], [place], [address], [facility] 04/19/2024 16:29:11 5 79784: Hot or Cold Pack completed Lesa Zuluaga, PT [address], [place], [address], [facility] 04/20/2024 16:16:51 5 38211 Therapeutic Exercise (1:1) completed Lesa Zuluaga, PT [address], [place], [address], [facility] 04/16/2024 14:59:19 5 52754 Therapeutic Exercise (1:1) completed Neto Mandel, [employer] [address], [place], [address], [facility] 04/12/2024 14:13:47 5 74964: Hot or Cold Pack completed Neto Mandel, [employer] [address], [place], [address], [facility] 04/12/2024 14:13:47 5 17501 Therapeutic Exercise (1:1) completed Neto Mandel, [employer] [address], [place], [address], [facility] 04/09/2024 15:05:27 5 38798: Hot or Cold Pack completed Neto Mandel, [employer] [address], [place], [address], [facility] 04/09/2024 15:05:27 5 87601 Therapeutic Exercise (1:1) completed Lesa Zuluaga, PT [address], [place], [address], [facility] 04/05/2024 13:23:55 5 89452: Hot or Cold Pack completed Lesa Zuluaga, PT [address], [place], [address], [facility] 04/05/2024 13:23:55 4 87027 Therapeutic Exercise (1:1) completed Neto Mandel, [employer] [address], [place], [address], [facility] 04/03/2024 10:13:08 4 33230: Hot or Cold Pack completed Neto Mandel, [employer] [address], [place], [address], [facility] 04/02/2024 15:05:59 4 46689 Therapeutic Exercise (1:1) completed Ketan Pitt, PT [address], [place], [address], [facility] 03/29/2024 12:15:50 4 84247: Hot or Cold Pack completed Ketan Pitt, PT [address], [place], [address], [facility] 03/29/2024 12:11:12 4 37600 Therapeutic Exercise (1:1) completed Neto Mandel [employer] [address], [place], [address], [facility] 03/27/2024 11:27:07 4 71539: Manual therapy completed Neto Mandel [employer] [address], [place], [address], [facility] 03/26/2024 13:10:59 4 31847 Therapeutic Exercise (1:1) completed Lesa , PT [address], [place], [address], [facility] 03/20/2024 12:36:38 4 91846: Hot or Cold Pack completed Lesa , PT [address], [place], [address], [facility] 03/21/2024 12:33:04 4 50309: Manual therapy completed Lesa Wing, PT [address], [place], [address], [facility] 03/20/2024 12:36:38 4 58856 Therapeutic Exercise (1:1) completed Lesa Zuluaga, PT [address], [place], [address], [facility] 03/19/2024 11:30:52 4 33372: Manual therapy completed Lesa Wing, PT [address], [place], [address], [facility] 03/19/2024 11:30:46 4 64588 Therapeutic Exercise (1:1) completed Lesa Zuluaga, PT [address], [place], [address], [facility] 03/09/2024 08:41:38 4 12000: PT re-eval completed Lesa Wing, PT [address], [place], [address], [facility] 03/16/2024 11:17:41 4 76629 Therapeutic Exercise (1:1) completed Lesa Zuluaga, PT [address], [place], [address], [facility] 02/05/2024 18:14:03 4 85239: Low complexity PT Eval completed Lesa Zuluaga, PT [address], [place], [address], [facility] - [facility] 02/05/2024 18:14:09 Imaging Results None recorded. Procedure [...] Status Never Smoker CHYNA kilgore [place] - [facility] 04/05/2024 09:12:07 Have You Ever Been Counseled [...] Trouble N Gastrointestinal Disease N Heart Attack (SD) N Cholesterol N Diabetes N Autoimmune disease N Inflammatory Joint disease N Bleeding Disorder N Orthotics N Arthritis Y Seizures/Epilepsy N [...] SNOMED-CT Code Diagnosis ICD10 Code Diagnosis Note [id number] YAAKOV Cheney 2[address] floor [address] [place] [address] 12/15/2023 08:59:46 01/05/2024 15:26:18 Pain of left knee joint 9986397841 24282 M25.562 Bilateral osteoarthritis of knees 4556060945 70956 M17.0 [id number] MD Raymundo Lomax Clinical [address] [place] [address] 01/19/2024 08:51:42 02/09/2024 15:01:49 Primary gonarthrosis, bilateral 672612684 M17.0 [id number] Lesa Wing, PT [facility] [address] [place] [address] 02/06/2024 14:52:23 02/06/2024 15:21:31 Osteoarthritis of knee 178127067 M17.12 [id number] Ozzy Weir, TOD [address] [place] [address] 02/27/2024 09:19:55 03/23/2024 04:04:43 [id number] Lesa Wing, PT [facility] [address] [place] [address] 03/16/2024 10:26:08 03/16/2024 10:51:40 History of left total knee replacement 9180463988 611253 Z96.652 Z47.1 [id number] Lesa Zuluaga, PT [facility] [address] [place] [address] 03/19/2024 10:52:25 03/19/2024 11:33:58 History of left total knee replacement 0034046666 674459 Z96.652 Z47.1 [id number] DINAH LaraC [address] [place] [address] 03/19/2024 09:16:29 04/10/2024 10:47:33 Implantation of joint prosthesis 22294631 Z47.1 Knee joint prosthesis present 9285680945 02 Z96.183 [id number] Lesajayson Zuluaga, PT [facility] [address] [place] [address] 03/21/2024 10:47:45 03/21/2024 12:07:21 History of left total knee replacement 3870625762 394392 Z96.652 Z47.1 [id number] Neto Madnel, [employer] [facility] [address] [place] [address] 03/27/2024 10:04:30 03/27/2024 11:02:14 History of left total knee replacement 9796686718 469912 Z96.652 Z47.1 [id number] Ketan Yoandy, PT [facility] [address] [place] [address] 03/29/2024 11:15:07 03/29/2024 12:50:56 History of left total knee replacement 0807750370 545828 Z96.652 Z47.1 [id number] Neto Mandel, [employer] [facility] [address] [place] [address] 04/03/2024 09:21:03 04/03/2024 10:18:47 History of left total knee replacement 8736496749 137860 Z96.652 Z47.1 [id number] YAAKOV Pearl - [facility] [place] [address] 04/05/2024 09:07:37 04/19/2024 11:25:30 Aftercare 147542643 Z51.89 Implantati on of joint prosthesis 14141567 Z47.1 [id number] Lesa Zuluaga, PT [facility] - [facility] [address] [place] [address] 04/06/2024 11:12:02 04/06/2024 13:57:26 History of left total knee replacement 1723370403 560023 Z96.652 Z47.1 [id number] Neto Peguerodavidkristal, [employer] [facility] - [facility] [address] [place] [address] 04/10/2024 08:25:09 04/10/2024 10:07:07 History of left total knee replacement 2276439364 518134 Z96.652 Z47.1 [id number] Neto Fragaman, [employer] [facility] - [facility] [address] [place] [address] 04/13/2024 14:16:22 04/13/2024 14:39:52 History of left total knee replacement 0088766287 196477 Z96.652 Z47.1 [id number] Lesa Wing, PT [facility] - [facility] [address] [place] [address] 04/17/2024 15:44:31 04/18/2024 07:27:46 History of left total knee replacement 7299751168 438513 Z96.652 Z47.1 [id number] Isabell Santiago PA-C [facility] - [facility] [place] [address] 04/19/2024 09:52:09 05/04/2024 03:58:35 [id number] Dave Alcantara MD [facility] - [address] [place] [address] 04/19/2024 10:17:32 05/01/2024 08:38:08 Osteoarthritis of right knee joint 6569005501 32554 M17.11 [id number] Lesa Wing, PT [facility] - [facility] [address] [place] [address] 04/20/2024 15:38:01 04/23/2024 07:06:06 History of left total knee replacement 2334788548 645078 Z96.652 Z47.1 [id number] Lesa Wing, PT [facility] - [facility] [address] [place] [address] 04/23/2024 13:11:48 04/23/2024 14:21:41 History of left total knee replacement 5314179695 595424 Z96.652 Z47.1 [id number] Lesa Wing, PT [facility] - [facility] [address] [place] [address] 05/09/2024 17:05:45 05/09/2024 18:01:41 History of right total knee replacement 1815560657 297048 Z96.651 Z47.1 [id number] Skyla Last PA-C [facility] - [address] [place] [address] 05/09/2024 13:10:45 05/18/2024 08:56:59 Postoperative visit 300944806 Z48.89 Knee joint prosthesis present 4120322087 02 Z96.444 [id number] Neto Madnel, [employer] [facility] - [facility] [address] [place] [address] 05/16/2024 10:33:45 05/16/2024 12:08:06 History of right total knee replacement 7889755023 195691 Z96.651 Z47.1 [id number] Jl Polanco PA-C [facility] - [address] [place] [address] 05/15/2024 14:39:03 06/01/2024 07:47:03 Pain of right knee region 2622088674 83757 M25.561 Osteoarthr itis of right knee joint 5553403362 59445 M17.11 [id number] Neto Mandel [employer] [facility] - [facility] [address] [place] [address] 05/18/2024 10:38:47 05/18/2024 11:10:36 History of right total knee replacement 2096918412 925889 Z96.651 Z47.1 [id number] Lesa Zuluaga, PT [facility] - [facility] [address] [place] [address] 05/23/2024 11:20:48 05/23/2024 14:47:05 History of right total knee replacement 9492103838 402699 Z96.651 Z47.1 [id number] Lesa Zuluaga, PT [facility] - [facility] [address] [place] [address] 05/25/2024 09:37:03 05/25/2024 12:35:17 History of right total knee replacement 9832866325 498168 Z96.651 Z47.1 [id number] Jodie Lynch, [employer] [facility] [address] [place] [address] 05/28/2024 16:12:33 05/28/2024 17:16:00 History of right total knee replacement 5697114624 380766 Z96.651 Z47.1 [id number] Jl Polanco PA-C [facility] - [address] [facility] [address] 05/29/2024 15:34:46 06/14/2024 08:18:08 Osteoarthritis of right knee joint 5927478236 45886 M17.11 Triggering of digit 2399 82682 M65.421 [id number] Neto Mandel, [employer] [facility] [address] [place] [address] 05/31/2024 10:16:50 05/31/2024 12:06:43 History of right total knee replacement 0200309924 923414 Z96.651 Z47.1 [id number] Jodie Lynch, [employer] [facility] [address] [place] [address] 06/05/2024 10:13:10 06/05/2024 11:33:05 History of right total knee replacement 4588447123 688096 Z96.651 Z47.1 [id number] Lesa Zuluaga, PT [facility] - [facility] [address] [place] [address] 06/07/2024 10:18:43 06/07/2024 11:29:52 History of right total knee replacement 3970965639 929329 Z96.651 Z47.1 [id number] Neto Mandel [employer] [facility] [address] [place] [address] 06/12/2024 10:21:55 06/12/2024 11:47:13 History of right total knee replacement 8849055010 351200 Z96.651 Z47.1 [id number] Lesa Zuluaga, PT [facility] - [facility] [address] [place] [address] 06/21/2024 10:50:23 06/21/2024 13:02:33 History of right total knee replacement 8744461050 592656 Z96.651 Z47.1 [id number] Lesa Zuluaga, PT [facility] [address] [place] [address] 06/26/2024 10:18:40 06/26/2024 11:43:46 History of right total knee replacement 5588694128 070380 Z96.651 Z47.1 [id number] MD [facility] [address] [place] [address] 08/02/2024 08:53:04 08/09/2024 10:24:58 History of bilateral total knee replacement 3870946205 001901 Z96.653 Health Concerns Section Related Observation LastModified by Organization Detai ls LastModified Time None Recorded Concern Status LastModified by Organization Details LastModified Time None Recorded Advance Directives Directive None Recorded Payers Insurance Date Sequence Insurance Name Policy Number Policy Reyes Covered Member ID Reyes Member ID Guarantor Name 08/09/2024 1 [facility]: MEDICARE HMO BLUE (MEDICARE REPLACEMENT HMO) [id number] Keaton Connor [id number] Keaton Connor Notes Date Note Type Note Provider Name and Address Organization Details Recorded Time 06/07/2024 text/html Pt states that armando perez was able to walk a little more this weekend with minimal soreness in the knee. Lesa Zuluaga, PT [address], [place], [address], [facility] 06/07/2024 11:14:54 06/12/2024 text/html Pt states feelin g good with no complaints of pain or soreness,, states he feels like he's close to being ready for discharge. Neto Mandel, [employer] [address], [place], [address], [facility] 06/12/2024 11:52:34 06/21/2024 text/html Pt states he get s some soreness at the outer right knee area and even the left knee feels a bit tight with a pressure sensation every now and then. Lesa Zuluaga, PT [address], [place], [address], [facility] 06/21/2024 12:52:36 06/26/2024 text/html Pt states he has been getting around outdoors easier. Lesa Zuluaga, PT [address], [place], [address], [facility] - [facility] 06/26/2024 12:45:32
[2024-09-28] MEDS: iohexoL 350 MG/ML 100 ML INFUS..BTL IV (15:12)
== END 2024-09-28 14:24 | disposition home or self-care (01) ==
LOC: HO.CT 14:23
PROVIDERS: PCP Internal Medicine; Visit Provider Internal Medicine
DX: R10.32 Left lower quadrant pain (principal)
CPT/HCPCS: 74177; Q9967

== ENCOUNTER → 2024-09-28 14:27 | Outpatient (BNV) | payer MEDICARE, SELFPAY | PROVIDERS: PCP Internal Medicine; Visit Provider Radiology Diagnostic Radiology | DX: K57.30 Diverticulosis of large intestine without perforation or abscess without bleeding (principal) | CPT/HCPCS: 74177 ==

== ENCOUNTER 2024-11-26 14:03 | Outpatient (AMB) | payer MEDICARE, SELFPAY ==
--- NOTE | 2024-11-26 14:05 | MHC.OFFVIS ---
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 CC: States that he is not having any concerns at this time. 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 Oropharynx clear. Moist mucous membranes. Conjunctivae appear well perfused. No thyroid mass. CHEST: Chest wall is nontender. HEART: Regular rate and rhythm without murmurs. LUNGS: Clear to auscultation bilaterally. ABDOMEN: Soft, positive bowel sounds, nontender, no organomegaly.no flank tenderness SKIN: No rash, no excessive bruising, petechiae, or purpura. NEUROLOGIC: Cranial nerves II-XII intact without motor/sensory deficit. Psych: normal affect A/P: 1/ dilated biliary ducts, intrahepatic on imaging, need eot exclude mass or stricture, cholangio, vs benign finding PLAN: 1/ MRI for further assessment [facility] Medical History Obstructive sleep apnea Screening for colon cancer Hypersomnia COVID-19 virus infection Otitis media Impacted cerumen of left ear Cerumen impaction Preoperative clearance COVID-19 virus infection Fever and chills Cervical radiculopathy Thrombophlebitis leg superficial Lumbar degenerative disc disease Fatty liver Osteoarthritis Carpal tunnel syndrome BPH (benign prostatic hyperplasia) Vitamin D deficiency Hypertension Obesity (BMI 30-39.9) COPD (chronic obstructive pulmonary disease) Gout Impaired glucose tolerance Peripheral vascular disease Surgical History History of total knee replacement History of back surgery History of back surgery History of colonoscopy History of varicose vein stripping History of right knee surgery History of elbow surgery History of removal of cyst History of carpal tunnel release Family History Father Lung cancer Brain cancer Mother No problems noted. Paternal Uncle Brain cancer Lung cancer Social History Housing: House Alcohol intake: current Alcohol intake frequency: 0-2 drinks per day Alcohol type: beer Comment: 2 drinks a day, QOD 2 drinks Patient Tobacco Use Status: Former Tobacco user Tobacco use type: Cigarette Years Smoked: quit 2004 e-Cigarette/Vaping Use: Never Used Second Hand Smoke Exposure: No service: No Current occupational status: retired Cognitive needs: No Hearing needs: No Vision needs: No Physical Exam Vital Signs: Last Vital Signs Pulse 64 11/26/24 14:06 BP 125/66 11/26/24 14:06 BMI result Body Mass Index 35.8 Assessment & Plan Assessment & Plan (1) Dilated intrahepatic bile duct: Code(s): K83.8 - Other specified diseases of biliary tract Category: Medical Plan: as above Orders: Orders MR abdomen wo/w con 11/26/24 K83.8 - Other specified diseases of biliary tract Coding Level of Care Code Est Pt Level 3 (71743) Diagnoses Dilated intrahepatic bile duct K83.8
[2024-11-26 14:06] VITALS: BP 125/66; PULSE 64; BMI 35.8
== END 2024-11-26 14:49 | disposition home or self-care (01) ==
LOC: HO.HGI 14:04
PROVIDERS: PCP Internal Medicine; Visit Provider Internal Medicine Gastroenterology
DX: K83.8 Other specified diseases of biliary tract (principal)
CPT/HCPCS: 99213

== ENCOUNTER → 2024-11-26 14:03 | Outpatient (BNVA) | payer MEDICARE, SELFPAY | PROVIDERS: PCP Internal Medicine; Visit Provider Internal Medicine Gastroenterology | DX: K83.8 Other specified diseases of biliary tract (principal); G47.33 Obstructive sleep apnea (adult) (pediatric); R91.1 Solitary pulmonary nodule; J44.9 Chronic obstructive pulmonary disease, unspecified | CPT/HCPCS: 99212 ==

== ENCOUNTER 2024-11-28 08:46 | Outpatient (AMB) | payer MEDICARE, SELFPAY ==
[2024-11-28 08:49] VITALS: BP 120/78; PULSE 59; O2SAT 96; BMI 37.3
--- NOTE | 2024-11-28 08:49 | MHC.OFFVIS ---
Vital Signs 11/28/24 08:49 Height 5 ft 11 in Weight 267 lb 2 oz BMI 37.3 BP 120/78 Blood Pressure Location Rt brachial Position Sitting Pulse 59 Pulse Source Pulse Oximeter Pulse Oximetry (%) 96 Oxygen Delivery Method Room Air Intake Visit Reasons: Sleep apnea Allergies bacitracin Allergy (Intermediate, Verified 11/28/24 08:52) rash hydrochlorothiazide Adverse Reaction (Intermediate, Verified 11/28/24 08:52) leg cramps amlodipine Adverse Reaction (Intermediate, Uncoded 11/28/24 08:52) leg swelling HPI HPI Sleep apnea: Details: Keaton is a pleasant 74-year-old male, former 60 pack year smoker, quit 20 years ago with underlying mild COPD, hypertension, atrial fib on Eliquis, CHF under the care of [facility] cardiology, and obstructive sleep apnea on CPAP therapy monitored by sleep medicine. He is prescribed Wixela 250 mcg using BID with good effect. The patient underwent a cardiac ablation procedure for atrial fibrillation and atrial flutter at [facility] last week. He reports feeling good post-procedure and denies noticing any palpitations or irregular heartbeats. He also reports improvements in dyspnea since procedure and denies any cough or wheezing. The patient is currently on Eliquis and Lasix, with a plan to continue these medications for another four months until his next appointment. The patient has a history of obstructive sleep apnea and uses a CPAP machine regularly. He reports feeling rested in the morning and has been compliant with CPAP usage, achieving good numbers with minimal leakage. The patient cleans his CPAP equipment regularly and uses distilled water in the reservoir. The patient experiences peripheral edema, which he manages with Lasix and compression stockings. He reports that the swelling is better than usual, especially with daily Lasix use. [facility] Medical History Obstructive sleep apnea Screening for colon cancer Hypersomnia COVID-19 virus infection Otitis media Impacted cerumen of left ear Cerumen impaction Preoperative clearance COVID-19 virus infection Fever and chills Cervical radiculopathy Thrombophlebitis leg superficial Lumbar degenerative disc disease Fatty liver Osteoarthritis Carpal tunnel syndrome BPH (benign prostatic hyperplasia) Vitamin D deficiency Hypertension Obesity (BMI 30-39.9) COPD (chronic obstructive pulmonary disease) Gout Impaired glucose tolerance Peripheral vascular disease Surgical History History of total knee replacement History of back surgery History of back surgery History of colonoscopy History of varicose vein stripping History of right knee surgery History of elbow surgery History of removal of cyst History of carpal tunnel release Family History Father Lung cancer Brain cancer Mother No problems noted. Paternal Uncle Brain cancer Lung cancer Social History (Reviewed 11/28/24 @ 08:52 by Alexandra Fajardo [facility]) Housing: House Alcohol intake: current Alcohol intake frequency: 0-2 drinks per day Alcohol type: beer Comment: 2 drinks a day, QOD 2 drinks Patient Tobacco Use Status: Former Tobacco user Tobacco use type: Cigarette Years Smoked: quit 2004 e-Cigarette/Vaping Use: Never Used Second Hand Smoke Exposure: No service: No Current occupational status: retired Cognitive needs: No Hearing needs: No Vision needs: No Review of Systems Const Denies chills, Denies excessive sweating, Denies fever(s), Denies headache(s) and Denies night sweats Eyes Denies dry eyes, Denies irritation and Denies itchy eyes ENT Reports Normal hearing present, Denies headache(s), Denies nasal congestion, Denies nasal discharge, Denies post nasal drip and Denies sore throat Card Denies chest pain, Denies chest pain at rest, Denies chest pain with activity, Denies claudication, Denies leg edema, Denies dyspnea, Denies dyspnea on exertion, Denies orthopnea and Denies paroxysmal nocturnal dyspnea Resp Denies chest congestion, Denies cough, Denies excessive phlegm production, Denies pain on inspiration, Denies pain with cough, Denies dyspnea, Denies dyspnea on exertion, Denies stridor and Denies wheezing Musc Denies myalgias Neuro Reports Normal hearing present and Denies headache(s) Endo Denies excessive sweating Prosper/Lymph Denies lymphadenopathy Aller/Immun Denies itchy eyes, Denies seasonal rhinorrhea and Denies wheezing Physical Exam Vital Signs: Last Vital Signs Pulse 59 11/28/24 08:49 BP 120/78 11/28/24 08:49 Pulse Ox 96 11/28/24 08:49 Oxygen Delivery Method Room Air 11/28/24 08:49 BMI result Body Mass Index 37.3 Const General: cooperative, healthy appearing, comfortable, no acute distress, well developed and alert Nutritional Appearance: obese Orientation/consciousness: patient oriented x3 Limitations: no limitations HEENT Head: Yes normal to inspection, Yes normocephalic and Yes atraumatic Ears: hearing grossly normal bilaterally and external ears normal Eyes General: appearance normal, both eyes and all related structures Eyelids: Yes eyelids normal Sclerae: sclerae normal EOM: EOMs intact bilaterally Neck Neck: Yes normal visual inspection and Yes no lymphadenopathy Lymphatic: no lymphadenopathy noted Chest Chest palpation & inspection: normal inspection of the chest Resp Effort & Inspection: normal respiratory effort, able to speak in complete sentences, no audible wheezes, no cough, no stridor, not tachypneic, no tripod positioning and no use of accessory muscles Auscultation: diminished lung sounds Cardio Jugular venous distension: no JVD Rate: regular rate Rhythm: regular rhythm Skin Other: warm, dry General skin exam: no rashes or lesions noted Neuro General: patient oriented x3 Cranial nerves: Yes Normal hearing present Cognition (Neuro): normal cognition Gait exam (Neuro): Normal gait present Extrem General: Yes normal to inspection, Yes capillary refill normal, Yes no clubbing, cyanosis or edema and Yes no pedal edema Psych Appearance: grossly normal and well kempt Speech and movement: Normal speech and movement present and Clear speech present Affect: normal affect Attitude: cooperative Thought process: Normal thought process present Thought content: Normal thought content present Insight: Good insight present (Psych) Judgement: Good judgement present (Psych) Assessment & Plan Assessment & Plan (1) COPD (chronic obstructive pulmonary disease): Code(s): J44.9 - Chronic obstructive pulmonary disease, unspecified Category: Medical Qualifiers: COPD type: emphysema Emphysema type: panlobular Qualified Code(s): J43.1 - Panlobular emphysema (2) Dyspnea on exertion: Code(s): R06.09 - Other forms of dyspnea Category: Medical (3) Multiple pulmonary nodules: Code(s): R91.8 - Other nonspecific abnormal finding of lung field Category: Medical Plan Discussed with the patient the importance of continuing his current medications, including Eliquis and Lasix, for the management of atrial fibrillation and peripheral edema. We reviewed the benefits of CPAP therapy for obstructive sleep apnea and emphasized the need for regular equipment maintenance. At this time he feels symptoms are controlled on Wixela, advised the patient to monitor his symptoms and contact us if there are any changes or concerns. All questions were answered and patient is in agreement of plan. Will follow-up in 3 months or sooner if needed. Coding Level of Care Code Est Pt Level 3 (48981) Diagnoses Panlobular emphysema J43.1 COPD type: emphysema Emphysema type: panlobular Dyspnea on exertion R06.09 Multiple pulmonary nodules R91.8
== END 2024-11-28 09:12 | disposition home or self-care (01) ==
LOC: HO.HPSW 08:47
PROVIDERS: PCP Internal Medicine; Visit Provider Nurse Practitioner Family
DX: J43.1 Panlobular emphysema (principal); R06.09 Other forms of dyspnea; R91.8 Other nonspecific abnormal finding of lung field
CPT/HCPCS: 99213

== ENCOUNTER → 2024-11-28 08:46 | Outpatient (BNVA) | payer MEDICARE, SELFPAY | PROVIDERS: PCP Internal Medicine; Visit Provider Nurse Practitioner Family | DX: J43.1 Panlobular emphysema (principal); R06.09 Other forms of dyspnea; R91.8 Other nonspecific abnormal finding of lung field | CPT/HCPCS: 99212 ==

== ENCOUNTER 2024-12-04 14:09 | Outpatient (AMB) | payer MEDICARE, SELFPAY ==
--- NOTE | 2024-12-04 14:14 | MHC.PC.OV ---
Vital Signs 12/04/24 14:15 Height 5 ft 11 in Weight 260 lb BMI 36.3 BP 132/68 Blood Pressure Location Lt brachial Position Sitting Pulse 68 Pulse Source Pulse Oximeter Pulse Oximetry (%) 98 Oxygen Delivery Method Room Air Intake Visit Reasons: COPD, HTN Allergies bacitracin Allergy (Intermediate, Verified 12/04/24 14:15) rash hydrochlorothiazide Adverse Reaction (Intermediate, Verified 12/04/24 14:15) leg cramps amlodipine Adverse Reaction (Intermediate, Uncoded 12/04/24 14:15) leg swelling Tobacco use date assessed: 09/04/24 Fall risk assessment: No Falls in past year Last assessed Fall Risk: 12/04/24 Dental Screening Dental Screen Date: 09/04/24 [facility] Medical History Obstructive sleep apnea Screening for colon cancer Hypersomnia COVID-19 virus infection Otitis media Impacted cerumen of left ear Cerumen impaction Preoperative clearance COVID-19 virus infection Fever and chills Cervical radiculopathy Thrombophlebitis leg superficial Lumbar degenerative disc disease Fatty liver Osteoarthritis Carpal tunnel syndrome BPH (benign prostatic hyperplasia) Vitamin D deficiency Hypertension Obesity (BMI 30-39.9) COPD (chronic obstructive pulmonary disease) Gout Impaired glucose tolerance Peripheral vascular disease Surgical History History of total knee replacement History of back surgery History of back surgery History of colonoscopy History of varicose vein stripping History of right knee surgery History of elbow surgery History of removal of cyst History of carpal tunnel release Family History Father Lung cancer Brain cancer Mother No problems noted. Paternal Uncle Brain cancer Lung cancer Social History Housing: House Alcohol intake: current Alcohol intake frequency: 0-2 drinks per day Alcohol type: beer Comment: 2 drinks a day, QOD 2 drinks Patient Tobacco Use Status: Former Tobacco user Tobacco use type: Cigarette Years Smoked: quit 2004 e-Cigarette/Vaping Use: Never Used Second Hand Smoke Exposure: No service: No Current occupational status: retired Cognitive needs: No Hearing needs: No Vision needs: No Questionnaire PHQ-9 Over the last 2 weeks, how often have you been bothered by any of the following problems? 1. Little interest or pleasure in doing things: not at all 2. Feeling down, depressed, or hopeless: not at all 3. Trouble falling or staying asleep, or sleeping too much: not at all 4. Feeling tired or having little energy: not at all 5. Poor appetite or overeating: not at all 6. Feeling bad about yourself - or that you are a failure or have let yourself or your family down: not at all 7. Trouble concentrating on things, such as reading the newspaper or watching television: not at all 8. Moving or speaking so slowly that other people could have noticed. Or the opposite - being so fidgety or restless that you have been moving around a lot more than usual: not at all 9. Thoughts that you would be better off or of hurting yourself in some way: not at all Total score: 0 Depression Screening Interpretation: Negative Depression Screening Done: Yes Source: Developed by Drs. Abiel Perez, Ceci Foss, Leonel Ram and colleagues, with an educational niurka from [employer]. Thrive Questionnaire Date Thrive assessed: 09/03/24 I am a: Patient What is your living situation today?: I have a steady place to live Within the past 12 months, did the food you bought not last and you didn't have the money to get more?: Never true Within the past 12 months, did you worry whether your food would run out before you got money to buy more?: Never true Do you have trouble paying for medicines?: No Do you have trouble getting transportation to medical appointments?: No Do you have trouble paying your heating and electricity bill?: No Do you have trouble taking care of your child, family member or friend?: No Do you have trouble with day-to-day activities such as bathing, preparing meals, shopping, managing finances, etc.?: No Are you currently unemployed and looking for a job?: No Are you interested in more education?: No Please select the resources that you would like help with: None Currently or been in a relationship where the following occur: I choose not to answer THRIVE Score: 0 AUDIT C Alcohol Use Questionnaire (AUDIT-C) 1. How often do you have a drink containing alcohol?: 2-3 times a week 2. How many drinks containing alcohol do you have on a typical day when you are drinking?: 1 or 2 3. How often do you have six or more drinks on one occasion?: Never Total Score: 3 ZACHARY-7 AMB Questionnaire ZACHARY-7 Date ZACHARY - 7 assessed: 09/04/24 Source: Developed by Drs. Abiel Perez, Ceci Foss, Leonel Ram and colleagues, with an educational niurka from [employer]. Physical exam (Primary Care) Vital Signs: Last Vital Signs Pulse 68 12/04/24 14:15 BP 132/68 12/04/24 14:15 Pulse Ox 98 12/04/24 14:15 Oxygen Delivery Method Room Air 12/04/24 14:15 BMI result Body Mass Index 36.3 Tobacco/Smoking Status: Tobacco use Status Tobacco use date assessed 09/04/24 12/04/24 14:21 Patient Tobacco Use Status Former Tobacco user 12/04/24 14:21 Tobacco use type Cigarette 12/04/24 14:21 e-Cigarette/Vaping Use Never Used 12/04/24 14:21 PHQ-9: PHQ-9 Score PHQ-9: Total score 0 12/04/24 14:49 Depression Screening Interpretation: Negative Thrive Assessment: Date of Thrive Assessment Date Thrive assessed 09/03/24 12/04/24 14:21 Currently or been in a relationship where the following occur: I choose not to answer Const General: alert; No acute distress Eyes Conjunctivae: conjunctivae normal Resp Auscultation: clear to auscultation bilaterally Cardio Rate: regular rate Rhythm: regular rhythm GI Inspection: Yes normal to inspection Extrem General: Yes normal to inspection and No edema Coding Level of Care Code Est Pt Level 4 (82782) Complex EM visit Add On G2211 Diagnoses Atrial fibrillation I48.91 Essential hypertension I10 Hypertension type: essential hypertension Impaired glucose tolerance R73.02 Obesity (BMI 30-39.9) E66.9 Dilated intrahepatic bile duct K83.8 Benign prostatic hyperplasia with urinary frequency N40.1; R35.0 Lower urinary tract symptom detail: urinary frequency Lower urinary tract symptom presence: symptoms present Bilateral primary osteoarthritis of knee M17.0 Panlobular emphysema J43.1 COPD type: emphysema Emphysema type: panlobular Severe obstructive sleep apnea G47.33 Assessment & Plan Assessment & Plan (1) Atrial fibrillation: Comment: ablation 11/2024 Code(s): I48.91 - Unspecified atrial fibrillation Category: Medical Plan: Continue with anticoagulation with Eliquis and on metoprolol 25 mg once a day/ had ablation done (2) Hypertension: Code(s): I10 - Essential (primary) hypertension Category: Medical Qualifiers: Hypertension type: essential hypertension Qualified Code(s): I10 - Essential (primary) hypertension Plan: Continue with blood pressure medication. Decrease salt intake and exercise continue with metoprolol benazepril 40 mg once a day (3) Impaired glucose tolerance: Code(s): R73.02 - Impaired glucose tolerance (oral) Category: Medical Plan: Decrease the amount of carbohydrate intake, pasta, bread, rice and potatoes are all sugar and that is aside from all the sweet stuff, remember that fruits are good but they are Sweet also. (4) Obesity (BMI 30-39.9): Code(s): E66.9 - Obesity, unspecified Category: Medical Plan: Diet and exercise (5) Dilated intrahepatic bile duct: Code(s): K83.8 - Other specified diseases of biliary tract Category: Medical Plan: Patient has a scheduled MRI next week (6) BPH (benign prostatic hyperplasia): Code(s): N40.0 - Benign prostatic hyperplasia without lower urinary tract symptoms Category: Medical Qualifiers: Lower urinary tract symptom detail: urinary frequency Lower urinary tract symptom presence: symptoms present Qualified Code(s): N40.1 - Benign prostatic hyperplasia with lower urinary tract symptoms; R35.0 - Frequency of micturition Plan: Continue with tamsulosin and finasteride (7) Bilateral primary osteoarthritis of knee: Comment: Arthroplasty Dr. Alcantara April 2024 right Code(s): M17.0 - Bilateral primary osteoarthritis of knee Category: Medical Plan: Patient follows up with orthopedics (8) COPD (chronic obstructive pulmonary disease): Code(s): J44.9 - Chronic obstructive pulmonary disease, unspecified Category: Medical Qualifiers: COPD type: emphysema Emphysema type: panlobular Qualified Code(s): J43.1 - Panlobular emphysema Plan: Continue with albuterol inhaler and on Wixela patient follows up with Pulmonary (9) Severe obstructive sleep apnea: Comment: Sleep titration study done January 2023 moderately severe obstructive sleep apnea with nocturnal hypoxemia. Bilevel pressure of 16/6 cms fullface mask large heated humidification Code(s): G47.33 - Obstructive sleep apnea (adult) (pediatric) Category: Medical Plan: Discussed about the use of CPAP. uses the cpap > 4 hours a night and benefits from this Plan History of Present Illness The patient is a 74-year-old male presenting for a follow-up visit. He has a history of obesity, with a recent weight loss of 7 pounds noted. The patient has chronic obstructive pulmonary disease (COPD) and continues to use Wixela and an albuterol inhaler for management. The patient has hypertension and is currently on metoprolol and minazepril for blood pressure management. He also has benign prostatic hyperplasia (BPH) and is taking tamsulosin and finasteride. The patient has lumbar spinal stenosis and osteoarthritis of both knees, for which he has undergone bilateral total knee arthroplasty. He follows up with orthopedics for knee pain management. The patient has severe obstructive sleep apnea and uses a CPAP machine nightly, which he reports helps improve his energy levels. He has a history of atrial fibrillation, which was recently managed with an ablation procedure. He continues on anticoagulation therapy with Eliquis and is also on Jardiance. The patient has multiple pulmonary nodules and has been referred to a low pressure boiler tender for further evaluation. An incidental finding of dilated intrahepatic biliary ducts was noted, and an MRI is scheduled for further assessment. The patient has diverticular disease, which was identified on a recent CT scan of the abdomen. He reports occasional constipation but manages it with stool softeners and Dulcolax. Preventative care includes a colonoscopy performed in January 2023, which is up to date. Health Maintenance - Colonoscopy performed in January 2023, up to date - Scheduled MRI for dilated intrahepatic biliary ducts - Use of CPAP machine for obstructive sleep apnea Social History Review of Systems - Respiratory: Reports use of CPAP machine, denies worsening dyspnea - Gastrointestinal: Reports occasional constipation, denies severe abdominal pain Physical Exam Results - Labs: Normal blood count, normal electrolytes, normal renal function, elevated blood sugar, normal hemoglobin A1c, normal liver function, LDL cholesterol of 105 mg/dL - Imaging: CT scan showing diverticular disease Plan Patient was informed and verbally consented to the use of an ambient scribe for clinic note documentation during this visit. 1. Obesity The patient is advised to continue with diet and exercise to manage obesity and achieve a target weight of 240 pounds by the end of the year. 2. Chronic Obstructive Pulmonary Disease (Copd) The patient is to continue using Wixela and an albuterol inhaler for COPD management and follow up with pulmonary care. 3. Hypertension The patient is to continue with metoprolol and minazepril for blood pressure management. 4. Benign Prostatic Hyperplasia (Bph) The patient is to continue with tamsulosin and finasteride for BPH management. 5. Lumbar Spinal Stenosis The patient is to follow up with orthopedics for management of lumbar spinal stenosis and knee pain. 6. Osteoarthritis Of Both Knees The patient is to continue follow-up with orthopedics for knee pain management post bilateral total knee arthroplasty. 7. Severe Obstructive Sleep Apnea The patient is to continue using the CPAP machine nightly for management of obstructive sleep apnea. 8. Atrial Fibrillation The patient is to continue anticoagulation therapy with Eliquis and follow up with cardiology for atrial fibrillation management. 9. Multiple Pulmonary Nodules The patient is referred to pulmonology for further evaluation of multiple pulmonary nodules. 10. Dilated Intrahepatic Biliary Ducts The patient is scheduled for an MRI to further assess the dilated intrahepatic biliary ducts. 11. Diverticular Disease The patient is advised to manage constipation with stool softeners and Dulcolax as needed. Discussion Notes During the visit, we discussed the management of the patient's chronic conditions, including COPD, hypertension, and atrial fibrillation. The importance of continuing current medications and follow-up with specialists was emphasized. We also reviewed the need for an MRI to assess the dilated intrahepatic biliary ducts and the benefits of using a CPAP machine for sleep apnea. Patient Instructions - Continue with current medications as prescribed. - Follow up with pulmonary, cardiology, and orthopedics as scheduled. - Use CPAP machine nightly for sleep apnea. - Maintain diet and exercise regimen to achieve weight loss goals. - Attend scheduled MRI for further evaluation of biliary ducts.
[2024-12-04 14:15] VITALS: BP 132/68; PULSE 68; O2SAT 98; BMI 36.3
== END 2024-12-04 15:23 | disposition home or self-care (01) ==
LOC: HO.HMCH 14:10
PROVIDERS: PCP Internal Medicine; Visit Provider Internal Medicine
DX: I48.91 Unspecified atrial fibrillation (principal); J43.1 Panlobular emphysema; Z68.36 Body mass index [BMI] 36.0-36.9, adult; E66.9 Obesity, unspecified; I10 Essential (primary) hypertension; R73.02 Impaired glucose tolerance (oral); K83.8 Other specified diseases of biliary tract; N40.1 Benign prostatic hyperplasia with lower urinary tract symptoms; R35.0 Frequency of micturition; M17.0 Bilateral primary osteoarthritis of knee; G47.33 Obstructive sleep apnea (adult) (pediatric)

== ENCOUNTER → 2024-12-04 14:09 | Outpatient (BNVA) | payer MEDICARE, SELFPAY | PROVIDERS: PCP Internal Medicine; Visit Provider Internal Medicine | DX: I10 Essential (primary) hypertension (principal); I48.91 Unspecified atrial fibrillation; R73.02 Impaired glucose tolerance (oral); K83.8 Other specified diseases of biliary tract; N40.1 Benign prostatic hyperplasia with lower urinary tract symptoms; R35.0 Frequency of micturition; M17.0 Bilateral primary osteoarthritis of knee; J43.1 Panlobular emphysema; G47.33 Obstructive sleep apnea (adult) (pediatric); E66.9 Obesity, unspecified; M48.061 Spinal stenosis, lumbar region without neurogenic claudication; Z68.36 Body mass index [BMI] 36.0-36.9, adult; Z96.653 Presence of artificial knee joint, bilateral; R91.8 Other nonspecific abnormal finding of lung field; Z99.89 Dependence on other enabling machines and devices | CPT/HCPCS: 96127; 99212 ==

== ENCOUNTER → 2024-12-09 13:30 | Outpatient (BNV) | payer MEDICARE, SELFPAY | PROVIDERS: PCP Internal Medicine; Visit Provider Radiology Diagnostic Radiology | DX: K83.8 Other specified diseases of biliary tract (principal) | CPT/HCPCS: 74183 ==

== ENCOUNTER 2024-12-09 13:36 | Outpatient (REF) | payer MEDICARE, SELFPAY ==
--- NOTE | ~2024-12-09 | MR_ITS ---
CLINICAL HISTORY: K83.8 - Other specified diseases of biliary tract --- Additional Notes or Special Instructions: abn Ct with dilated biliary radicles, pls r o mass, nml LFT MRI abdomen without and with contrast MRCP Comparison: 09/28/2024 Findings: There is moderate localized dilatation of the intrahepatic biliary tree at the level of the lateral segment, grossly unchanged since prior study. There is no evidence of associated mass. The remainder of the liver is unremarkable. There are no gallstones within the gallbladder. There is no common bile duct dilatation. The spleen is normal in size. There is pancreatic volume loss. There are numerous bilateral kidney cysts. The adrenal glands are unremarkable. There is no free fluid or lymphadenopathy. There is no suspicious bone lesion. There are advanced degenerative changes of the lumbar spine. Impression: 1. Moderate localized dilatation of the intrahepatic biliary tree at the level of the lateral segment, similar to the prior study. No obvious associated mass. Recommend correlation with laboratory data. Consider repeat MRCP in 3-6 months to ensure stability. This document has been electronically signed by: Joya Garcia MD on 12/09/2024 16:15:42
== END 2024-12-09 13:37 | disposition home or self-care (01) ==
LOC: HO.MRI 13:36
PROVIDERS: PCP Internal Medicine; Visit Provider Internal Medicine Gastroenterology
DX: K83.8 Other specified diseases of biliary tract (principal)
CPT/HCPCS: 74183; A9585

== ENCOUNTER 2025-02-12 09:50 | Outpatient (AMB) | payer MEDICARE, SELFPAY ==
[2025-02-12 10:12] VITALS: BP 130/68; PULSE 60; O2SAT 94; BMI 37.0
--- NOTE | 2025-02-12 10:12 | A.OFFVIS_ITS ---
Vital Signs 02/12/25 10:12 Height 5 ft 11 in Weight 265 lb 8 oz BMI 37.0 BP 130/68 Blood Pressure Location Rt brachial Position Sitting Pulse 60 Pulse Source Pulse Oximeter Pulse Oximetry (%) 94 Oxygen Delivery Method Room Air Intake Visit Reasons: Sleep apnea Allergies bacitracin Allergy (Intermediate, Verified 02/12/25 10:16) rash hydrochlorothiazide Adverse Reaction (Intermediate, Verified 02/12/25 10:16) leg cramps amlodipine Adverse Reaction (Intermediate, Uncoded 02/12/25 10:16) leg swelling HPI HPI Sleep apnea: Details: Keaton is a pleasant 74-year-old male, former 60 pack year smoker, quit 20 years ago with underlying mild COPD, hypertension, atrial fib on Eliquis, CHF under the care of [facility] cardiology, and obstructive sleep apnea on CPAP therapy monitored by sleep medicine. He is prescribed Wixela 250 mcg using BID and albuterol nebulizer p.r.n. with moderate effect, continues with intermittent dyspnea, wheezing and dry cough. Unfortunately patient not using inhaler consistently so difficult to assess effectiveness. The patient has a history of obstructive sleep apnea and uses a CPAP machine regularly. DME is [facility]. He has been using consistently and benefitting from therapy. Today he presents to review compliance report. He denies any visits to urgent care hospitalizations related to respiratory distress since last visit. [facility] Medical History Obstructive sleep apnea Screening for colon cancer Hypersomnia COVID-19 virus infection Otitis media Impacted cerumen of left ear Cerumen impaction Preoperative clearance COVID-19 virus infection Fever and chills Cervical radiculopathy Thrombophlebitis leg superficial Lumbar degenerative disc disease Fatty liver Osteoarthritis Carpal tunnel syndrome BPH (benign prostatic hyperplasia) Vitamin D deficiency Hypertension Obesity (BMI 30-39.9) COPD (chronic obstructive pulmonary disease) Gout Impaired glucose tolerance Peripheral vascular disease Surgical History History of total knee replacement History of back surgery History of back surgery History of colonoscopy History of varicose vein stripping History of right knee surgery History of elbow surgery History of removal of cyst History of carpal tunnel release Family History Father Lung cancer Brain cancer Mother No problems noted. Paternal Uncle Brain cancer Lung cancer Social History Housing: House Alcohol intake: current Alcohol intake frequency: 0-2 drinks per day Alcohol type: beer Comment: 2 drinks a day, QOD 2 drinks Patient Tobacco Use Status: Former Tobacco user Tobacco use type: Cigarette Years Smoked: quit 2004 e-Cigarette/Vaping Use: Never Used Second Hand Smoke Exposure: No service: No Current occupational status: retired Cognitive needs: No Hearing needs: No Vision needs: No Review of Systems Const Denies chills, Denies excessive sweating, Denies fever(s), Denies headache(s) and Denies night sweats Eyes Denies dry eyes, Denies irritation and Denies itchy eyes ENT Reports Normal hearing present, Denies headache(s), Denies nasal congestion, Denies nasal discharge, Denies post nasal drip and Denies sore throat Card Denies chest pain, Denies chest pain at rest, Denies chest pain with activity, Denies claudication, Denies leg edema, Denies dyspnea, Denies orthopnea and Denies paroxysmal nocturnal dyspnea Resp Denies chest congestion, Denies excessive phlegm production, Denies pain on inspiration, Denies pain with cough, Denies dyspnea and Denies stridor Musc Denies myalgias Neuro Reports Normal hearing present and Denies headache(s) Endo Denies excessive sweating Prosper/Lymph Denies lymphadenopathy Aller/Immun Denies itchy eyes and Denies seasonal rhinorrhea Physical Exam Vital Signs: Last Vital Signs Pulse 60 02/12/25 10:12 BP 130/68 02/12/25 10:12 Pulse Ox 94 02/12/25 10:12 Oxygen Delivery Method Room Air 02/12/25 10:12 BMI result Body Mass Index 37.0 Const General: cooperative, healthy appearing, comfortable, no acute distress, well developed and alert Nutritional Appearance: obese Orientation/consciousness: patient oriented x3 Limitations: no limitations HEENT Head: Yes normal to inspection, Yes normocephalic and Yes atraumatic Ears: hearing grossly normal bilaterally and external ears normal Eyes General: appearance normal, both eyes and all related structures Eyelids: Yes eyelids normal Sclerae: sclerae normal EOM: EOMs intact bilaterally Neck Neck: Yes normal visual inspection and Yes no lymphadenopathy Lymphatic: no lymphadenopathy noted Chest Chest palpation & inspection: normal inspection of the chest Resp Effort & Inspection: normal respiratory effort, able to speak in complete sentences, no audible wheezes, no cough, no stridor, not tachypneic, no tripod positioning and no use of accessory muscles Auscultation: diminished lung sounds Cardio Jugular venous distension: no JVD Rate: regular rate Rhythm: regular rhythm Skin Other: warm, dry General skin exam: no rashes or lesions noted Neuro General: patient oriented x3 Cranial nerves: Yes Normal hearing present Cognition (Neuro): normal cognition Gait exam (Neuro): Normal gait present Extrem General: Yes normal to inspection, Yes capillary refill normal, Yes no clubbing, cyanosis or edema and Yes no pedal edema Psych Appearance: grossly normal and well kempt Speech and movement: Normal speech and movement present and Clear speech present Affect: normal affect Attitude: cooperative Thought process: Normal thought process present Thought content: Normal thought content present Insight: Good insight present (Psych) Judgement: Good judgement present (Psych) Assessment & Plan Assessment & Plan (1) COPD (chronic obstructive pulmonary disease): Code(s): J44.9 - Chronic obstructive pulmonary disease, unspecified Category: Medical Qualifiers: COPD type: emphysema Emphysema type: panlobular Qualified Code(s): J43.1 - Panlobular emphysema (2) Dyspnea on exertion: Code(s): R06.09 - Other forms of dyspnea Category: Medical (3) Multiple pulmonary nodules: Code(s): R91.8 - Other nonspecific abnormal finding of lung field Category: Medical Plan Discussed with the patient the importance of compliance with current regimen of Wixela and albuterol MDI/nebulizer p.r.n.. If using consistently and continues to be symptomatic we will consider increasing Wixela versus switching to alternative inhalers. Reviewed compliance report for the last 30 days which revealed greater than 4 hours of usage 97% of the time, AHI 1.9 with minimal leaking. He has been benefitting from therapy and motivated to continue to use. All questions were answered and patient is in agreement of plan. Will follow- up in 3 months or sooner if needed. Medications: Refilled fluticasone propion-salmeterol 250-50 mcg/dose (Wixela Inhub) 1 inh inhalation Q12H 180 ea 1RF albuterol sulfate 2.5 mg (3 mL) inhalation Q4-6H PRN 180 mL 1RF shortness of breath or wheezing 30 days J43.1 - Panlobular emphysema, U07.1 - COVID-19 Coding Level of Care Code Est Pt Level 4 (46087) Diagnoses Panlobular emphysema J43.1 COPD type: emphysema Emphysema type: panlobular Dyspnea on exertion R06.09 Multiple pulmonary nodules R91.8
== END 2025-02-12 10:43 | disposition home or self-care (01) ==
LOC: HO.HPSW 09:50
PROVIDERS: PCP Internal Medicine; Visit Provider Nurse Practitioner Family
DX: J43.1 Panlobular emphysema (principal); R06.09 Other forms of dyspnea; R91.8 Other nonspecific abnormal finding of lung field
CPT/HCPCS: 99214

== ENCOUNTER → 2025-02-12 09:50 | Outpatient (BNVA) | payer MEDICARE, SELFPAY | PROVIDERS: PCP Internal Medicine; Visit Provider Nurse Practitioner Family | DX: J43.1 Panlobular emphysema (principal) | CPT/HCPCS: 99212 ==